=== PATIENT | female | born 1950 | race Caucasian/White ===

== ENCOUNTER 2018-06-14 11:16 | Inpatient (IN) ==
[2018-06-14] MEDS ORDERED: Tetanus/Diphtheria Toxoid Adult Vaccine Inj 0.5 ML Vial IM ONE (11:31)
--- NOTE | 2018-06-14 12:08 | ED ---
HPI General Chief Complaint: Fall Stated Complaint: fall Time Seen by Provider: 06/14/18 11:31 Source: patient and family Mode of arrival: ambulatory Limitations: no limitations History of Present Illness HPI Narrative: Patient is a 68-year-old female presenting to emergency department for evaluation of a syncopal episode. Patient states she was getting off the couch and fell and hit the floor. Patient sustained a laceration to her forehead. She does not remember falling. She states that she did not feel dizzy or short of breath prior to the fall. She denied any chest pain. Patient has a history of COPD, she is oxygen dependent. Family member gave patient Graahm prior to arrival in the emergency department. This is patient's second fall in 6 weeks. Patient denies any other injuries sustained from the fall. Family member was in the room, he states he did not witness the fall but he turned around when he heard her fall. He states that she did not lose consciousness. MD complaint: fall Onset (ago): hour(s) Fall from: standing Fall witnessed: no Place fall occurred: home Loss of consciousness: unsure Length of LOC: second(s) Prolonged down time: no Symptoms prior to fall: none Context: history of frequent falls Location of injury: head Severity: mild Severity scale (1-10): 3 Quality: aching Associated symptoms (after fall): headache Related Data Home Medications Medication Instructions Recorded Confirmed furosemide [Lasix] 20 mg PO DAILY 06/14/18 06/14/18 prednisone 20 mg PO DAILY 06/14/18 06/14/18 Allergies Allergy/AdvReac Type Severity Reaction Status Date / Time latex Allergy Severe RASH/ITCH Verified 06/14/18 12:00 Review of Systems Except as stated in HPI: all other systems reviewed are negative PMFSH History History Provided By: Patient and Family Member Medical History Medical History COPD (chronic obstructive pulmonary disease) (Acute) Surgical History Surgical History History of lung surgery (Acute) Family History Family History Other Arthritis Social History Social History Second Hand Smoke Exposure: No Smoking Status: Former smoker Tobacco Type: Cigarettes How Often Do You Have a Drink Containing Alcohol: Never Recent Travel in [facility] within the Last 8 Weeks: No Recent Out of Country Travel within the Last 8 Weeks: No Exam Narrative Exam Narrative: GENERAL: Well-developed, well-nourished, alert female. Presenting in no acute distress. Appears older than stated age. SKIN: Focused skin assessment warm/dry. 6 cm superficial laceration to the left forehead. HEAD: Normocephalic. EYES: Pupils equal and round. No scleral icterus. No injection or drainage. ENT: No nasal bleeding or discharge. Mucous membranes pink and moist. NECK: Trachea midline. No JVD. CARDIOVASCULAR: Tachycardic. No murmur appreciated. RESPIRATORY: Tachypnea, diminished throughout with prolonged expiratory wheezes GASTROINTESTINAL: Abdomen soft, non-tender, nondistended. Hepatic and splenic margins not palpable. MUSCULOSKELETAL: No obvious deformities. No clubbing. No cyanosis. No edema. NEUROLOGICAL: Awake and alert. No obvious cranial nerve deficits. Motor grossly within normal limits. Normal speech. PSYCHIATRIC: Appropriate mood and affect; insight and judgment normal. Procedures Laceration Laceration 1: Site: face (Forehead) Side (If applicable): left Size (cm): 6 Description: linear Depth: simple, single layer Anesthetic used: with epi (1) Anesthesia technique:: local infiltration Amount (mL): 5 Pre-repair:: wound explored and irrigated extensively Skin layer closed with: other (Prolene) Size (cm): 5-0 Number of sutures:: 6 Technique:: simple, interrupted Subcutaneous layer closed with: vicryl Size: 5-0 Number of sutures: 2 Technique:: simple, interrupted Course Initial Documented Vital Signs Temperature 98.0 F 06/14/18 11:19 Pulse Rate 106 H 06/14/18 11:19 Respiratory Rate 24 06/14/18 11:19 Blood Pressure 126/83 06/14/18 11:19 Pulse Oximetry 95 06/14/18 11:19 Last Documented Vital Signs Temperature 97.8 F 06/14/18 12:20 Pulse Rate 92 H 06/14/18 14:33 Respiratory Rate 16 06/14/18 14:33 Blood Pressure 125/58 L 06/14/18 14:33 Pulse Oximetry 100 06/14/18 14:33 Medical Decision Making TA Attestation TA supervised visit: Yes Attestation: I was present with the advanced practitioner during the management of this patient. I discussed the case with the advanced practitioner and agree with the findings and plan as documented in their note except as noted below. 68yF presenting with fall and head injury. The patient reported no prodromal symptoms. This is the 2nd similar episode in the past month and a half. No acute distress Laceration to upper forehead near hairline, repaired No raccoon eyes or Tavarez's sign RRR Expiratory wheeze bilaterally Abdomen soft and non-tender throughout No extremity trauma A/P: 68yF presenting with syncopal episode EKG and monitor CTH and C spine Labs Patient will probably need to stay for further workup for syncope MDM Narrative Medical decision making narrative: Patient is a 68-year-old female presented to emerge from for evaluation a fall where she sustained a laceration to her forehead. Patient denies being symptomatic prior to falling. Family member was there, there was no prolonged downtime, they denied loss of consciousness. Patient has no focal deficits on exam. She is oxygen dependent. Labs and imaging ordered and pending. CT of the brain and cervical spine show no acute abnormalities. Please see procedure report for laceration repair. Labs reviewed, white blood cell count is 18.1, leukocytosis is likely from patient being on prednisone. EKG reviewed by my attending physician. Pt will be admitted for syncopal episode. Pt is sleeping comfortably. [facility] paged for admit. 1630 -patient's spouse presented to emergency department, patient was still sleeping due to the Ativan. Patient's spouse was aggravated and irritated that she was not being discharged. Explained to spouse that our plan was to place her under observation. He states that that was not his plan prior to bringing her here. He then states that patient had a bad experience last time she was admitted and almost "lost her arm". Patient's apologized for being so antagonistic. He then left the emergency department. Patient was admitted under observation to Dr. Bautista. Admit orders placed. Differential Diagnosis Differential Diagnosis: Contusion versus laceration versus concussion versus hemorrhage versus metabolic abnormality versus arrhythmia versus other Medical Records Medical records reviewed: Yes I reviewed the patient's medical records. Lab Data Lab results reviewed: Yes I reviewed the patient's lab results. Result diagrams: 06/14/18 12:14 06/14/18 12:14 Lab Results 06/14/18 06/14/1818 Range/Units 12:14 12:14 12:14 WBC 18.1 H (4.0-11.0) th/mm3 RBC 3.88 L (4.00-5.30) mil/mm3 Hgb 11.2 L (11.6-15.3) gm/dL Hct 35.2 (35.0-46.0) % MCV 90.8 (80.0-100.0) fL MCH 29.0 (27.0-34.0) pg MCHC 31.9 L (32.0-36.0) % RDW 14.7 (11.6-17.2) % Plt Count 324 (150-450) th/mm3 MPV 6.6 L (7.0-11.0) fL Neut % (Auto) 91.1 H (16.0-70.0) % Lymph % (Auto) 3.3 L (9.0-44.0) % [place] % (Auto) 5.2 (0.0-8.0) % Eos % (Auto) 0.3 (0.0-4.0) % Baso % (Auto) 0.1 (0.0-2.0) % Neut # (Auto) 16.4 H (1.8-7.7) th/mm3 Lymph # (Auto) 0.6 L (1.0-4.8) th/mm3 [place] # (Auto) 0.9 (0.0-0.9) th/mm3 Eos # (Auto) 0.1 (0.0-0.4) th/mm3 Baso # (Auto) 0.0 (0.0-0.2) th/mm3 WBC Differential . Differential Comment Auto diff final PT 10.1 (9.8-11.6) sec INR 1.0 Ratio APTT 22.6 L (24.3-30.1) sec Sodium 134 L (136-145) meq/L Potassium 3.9 (3.5-5.1) meq/L Chloride 93 L (98-107) meq/L Carbon Dioxide 36.8 H (21.0-32.0) meq/L Anion Gap 4 L (5-15) meq/L BUN 8 (7-18) mg/dL Creatinine 1.21 H (0.50-1.00) mg/dL Estimated GFR 44 L (>89) mL/min POC Glucose (68-110) mg/dl Random Glucose 97 (74-106) mg/dL Calcium 8.4 L (8.5-10.1) mg/dL Magnesium 1.9 (1.5-2.5) mg/dL Total Bilirubin 0.6 (0.2-1.0) mg/dL AST 27 (15-37) U/L ALT 28 (10-53) U/L Alkaline Phosphatase 57 (45-117) U/L Troponin I Less than 0.02 L (0.02-0.05) ng/mL Total Protein 6.2 L (6.4-8.2) g/dL Albumin 3.3 L (3.4-5.0) g/dL 06/14/18 Range/Units 12:20 WBC (4.0-11.0) th/mm3 RBC (4.00-5.30) mil/mm3 Hgb (11.6-15.3) gm/dL Hct (35.0-46.0) % MCV (80.0-100.0) fL MCH (27.0-34.0) pg MCHC (32.0-36.0) % RDW (11.6-17.2) % Plt Count (150-450) th/mm3 MPV (7.0-11.0) fL Neut % (Auto) (16.0-70.0) % Lymph % (Auto) (9.0-44.0) % [place] % (Auto) (0.0-8.0) % Eos % (Auto) (0.0-4.0) % Baso % (Auto) (0.0-2.0) % Neut # (Auto) (1.8-7.7) th/mm3 Lymph # (Auto) (1.0-4.8) th/mm3 [place] # (Auto) (0.0-0.9) th/mm3 Eos # (Auto) (0.0-0.4) th/mm3 Baso # (Auto) (0.0-0.2) th/mm3 WBC Differential Differential Comment PT (9.8-11.6) sec INR Ratio APTT (24.3-30.1) sec Sodium (136-145) meq/L Potassium (3.5-5.1) meq/L Chloride (98-107) meq/L Carbon Dioxide (21.0-32.0) meq/L Anion Gap (5-15) meq/L BUN (7-18) mg/dL Creatinine (0.50-1.00) mg/dL Estimated GFR (>89) mL/min POC Glucose 111 H (68-110) mg/dl Random Glucose (74-106) mg/dL Calcium (8.5-10.1) mg/dL Magnesium (1.5-2.5) mg/dL Total Bilirubin (0.2-1.0) mg/dL AST (15-37) U/L ALT (10-53) U/L Alkaline Phosphatase (45-117) U/L Troponin I (0.02-0.05) ng/mL Total Protein (6.4-8.2) g/dL Albumin (3.4-5.0) g/dL Imaging Data Radiologist's impression: Cervical Spine CT 06/14/18 11:31 CONCLUSION: 1. Multilevel degenerative changes. 2. No fracture or subluxation Head CT 06/14/18 11:31 CONCLUSION: 1. Nonspecific white matter changes. 2. No acute intracranial abnormality. . Reviewed radiology reports. Discharge Plan Discharge Disposition Patient Disposition: 30 Still Patient Discharge Condition Condition: Stable Discharge Details Diagnosis: Syncope, Head injury, Laceration, COPD (chronic obstructive pulmonary disease) , Falls Physicians Team ED Provider: Astrid Roa ED Midlevel Provider: Alice Pettit Primary Care Provider: UNKNOWN, Attending Provider: Negrito Bautista Status ED Status: Admitted Observation Patient
[2018-06-14] MEDS ORDERED: Lidocaine 1%/Epinephrine 1:100,000 Inj 20 ML Vial INFILTRATN ONE (12:35)
[2018-06-14 12:44] LABS: Baso % (Auto) 0.1 % (0.0-2.0); Eos # (Auto) 0.1 th/mm3 (0.0-0.4); Eos % (Auto) 0.3 % (0.0-4.0); Hematocrit 35.2 % (35.0-46.0); Hemoglobin 11.2 gm/dL (11.6-15.3); Lymph # (Auto) 0.6 th/mm3 (1.0-4.8); Lymph % (Auto) 3.3 % (9.0-44.0); Mean Corpuscular HGB Conc 31.9 % (32.0-36.0); Mean Corpuscular Volume 90.8 fL (80.0-100.0); Mean Platelet Volume 6.6 fL (7.0-11.0); Mono # (Auto) 0.9 th/mm3 (0.0-0.9); Mono % (Auto) 5.2 % (0.0-8.0); Neut # (Auto) 16.4 th/mm3 (1.8-7.7); Neut % (Auto) 91.1 % (16.0-70.0); Platelet Count 324 th/mm3 (150-450); Red Blood Count 3.88 mil/mm3 (4.00-5.30); Red Cell Distribution Width 14.7 % (11.6-17.2); White Blood Count 18.1 th/mm3 (4.0-11.0)
[2018-06-14 12:53] LABS: Activated Partial Thrombo Time 22.6 sec (24.3-30.1); Prothrombin Time 10.1 sec (9.8-11.6)
--- NOTE | 2018-06-14 13:12 | CT ---
EXAM DATE: 06/14/2018 1:01 PM EDT AGE/SEX: 68 years / Female INDICATIONS: Trauma, fall. CLINICAL DATA: This is the patient's initial encounter. Patient reports that signs and symptoms have been present for 1 day and indicates a pain score of 4/10. MEDICAL/SURGICAL HISTORY: Chronic obstructive pulmonary disease. None. RADIATION DOSE: 56.37 CTDI (mGy) COMPARISON: No prior exams available for comparison. TECHNIQUE: CT of the head without contrast. Using automated exposure control and adjustment of the mA and/or kV according to patient size, radiation dose was kept as low as reasonably achievable to ob tain optimal diagnostic quality images. DICOM format image data is available electronically for revi ew and comparison. FINDINGS: Cerebrum: The ventricles are normal for age. Areas of low-attenuation throughout white matter. No e vidence of midline shift, mass lesion, hemorrhage or acute infarction. No extraaxial fluid collectio ns are seen. Posterior Fossa: The cerebellum and brainstem are intact. The 4th ventricle is midline. The cerebe llopontine angle is unremarkable. Extracranial: The visualized portion of the orbits is intact. Skull: The calvaria is intact. No evidence of skull fracture. CONCLUSION: 1. Nonspecific white matter changes. 2. No acute intracranial abnormality. . Electronically signed by: Mikal Blackwell MD 06/14/2018 1:10 PM EDT
[2018-06-14 13:19] LABS: Alanine Aminotransferase 28 U/L (10-53); Albumin 3.3 g/dL (3.4-5.0); Anion Gap 4 meq/L (5-15); Aspartate Aminotransferase 27 U/L (15-37); Blood Urea Nitrogen 8 mg/dL (7-18); Calcium 8.4 mg/dL (8.5-10.1); Carbon Dioxide 36.8 meq/L (21.0-32.0); Chloride 93 meq/L (98-107); Glomerular Filtration Rate 44 mL/min (>89); Glucose,Random 97 mg/dL (74-106); Magnesium 1.9 mg/dL (1.5-2.5); Potassium 3.9 meq/L (3.5-5.1); Sodium 134 meq/L (136-145)
--- NOTE | 2018-06-14 13:21 | CT ---
EXAM DATE: 06/14/2018 1:14 PM EDT AGE/SEX: 68 years / Female INDICATIONS: Trauma, fall. CLINICAL DATA: This is the patient's initial encounter. Patient reports that signs and symptoms have been present for 1 day and indicates a pain score of 5/10. MEDICAL/SURGICAL HISTORY: Chronic obstructive pulmonary disease. None. RADIATION DOSE: 21.43 CTDI (mGy) COMPARISON: No prior exams available for comparison. TECHNIQUE: Contiguous axial images were obtained using helical multirow detector technique. The vol umetric data was post-processed with multiplanar reconstruction in oblique axial, sagittal, and coron al planes. Using automated exposure control and adjustment of the mA and/or kV according to patient s ize, radiation dose was kept as low as reasonably achievable to obtain optimal diagnostic quality anupama ges. DICOM format image data is available electronically for review and comparison. FINDINGS: Vertebrae: Normal vertebral body height. Alignment: Normal. No subluxation. C2-3: The bony spinal canal is normal in size. No evidence of disc bulge or herniation. The neural foramina are bilaterally patent. C3-4: The bony spinal canal is normal in size. No evidence of disc bulge or herniation. The neural foramina are bilaterally patent. C4-5: Posterior disc osteophyte complex and mild neural foraminal narrowing. No canal stenosis. C5-6: Posterior disc osteophyte complex and mild neural foraminal narrowing. No canal stenosis. C6-7: Posterior disc osteophyte complex and mild neural foraminal narrowing. No canal stenosis. C7-T1: The bony spinal canal is normal in size. No evidence of disc bulge or herniation. The neura l foramina are bilaterally patent. CONCLUSION: 1. Multilevel degenerative changes. 2. No fracture or subluxation Electronically signed by: Mikal Blackwell MD 06/14/2018 1:20 PM EDT
[2018-06-14 13:23] LABS: Alkaline Phosphatase 57 U/L (45-117); Total Protein 6.2 g/dL (6.4-8.2)
--- NOTE | 2018-06-14 16:56 | P.HPIM ---
History of Present Illness Service: Mrs. Lara is a 68 year old she is here secondary to having a syncopal episode at home. This episode occurred after she got off the couch, she fell right in front of the couch. She hit her head during this episode. CT shows no bleeding. 6 cm laceration was present and was repaired in the ER. Presently patient is status post CT for which she received Ativan. She has lethargy and cannot provide good history. Primary Care Physician: UNKNOWN - Diagnosis (1) Syncope (2) Laceration (3) COPD (chronic obstructive pulmonary disease) Review of Systems Constitutional: Denies fever(s), Denies night sweats, Denies weakness Eyes: Denies blind spots, Denies blurry vision, Denies change in vision, Denies double vision Ears, Nose, Mouth, and Throat: Denies abnormal hearing, Denies bleeding gums, Denies change in voice Cardiovascular: Denies chest pain, Denies chest pain at rest, Denies chest pain with activity Respiratory: Denies change in phlegm color, Denies chest congestion, Denies cough, Denies coughing up blood Gastrointestinal: Denies abdominal pain, Denies black, tarry stools, Denies bloating Musculoskeletal: Denies abnormal walking, Denies back pain, Denies body aches Skin/Breast: Denies rash, Denies skin pain, Denies skin ulcer Neurologic: Denies abnormal hearing, Denies abnormal movements, Denies abnormal speech Psychiatric: Denies abnormal sleep pattern, Denies anxiety, Denies behavioral changes PMF - History History Provided By: Patient, Family Member - Medical History Medical History: Medical History (Last Reviewed 06/14/18 @ 14:11 by Astrid Roa DO) COPD (chronic obstructive pulmonary disease) - Surgical History Surgical History: Surgical History (Last Reviewed 06/14/18 @ 14:11 by Astrid Roa DO) History of lung surgery - Family History Family History: Family History (Last Updated 06/14/18 @ 16:59 by Negriot Bautista MD) Other Arthritis - Tobacco History Second Hand Smoke Exposure: No Tobacco Use In Past 30 Days: No (quit 2007) Smoking Status: Former smoker Tobacco Type: Cigarettes - Alcohol History How Often Do You Have a Drink Containing Alcohol: Never - Travel History Recent Travel in the [place] Within the Last 8 Weeks: No Recent Travel Out of the Country Within the Last 8 Weeks: No - Immunization History Tetanus Immunization: >5 Years Hx Influenza Vaccine This Season: No Medications and Allergies Active Medications: Active Medications Sodium Chloride (Ns Inj) 1,000 mls @ 75 mls/hr IV.CONT .[id number] JAMAL Allergies Allergy/AdvReac Type Severity Reaction Status Date / Time latex Allergy Severe RASH/ITCH Verified 06/14/18 12:00 Home Medications Medication Instructions Recorded Confirmed Type furosemide [Lasix] 20 mg PO DAILY 06/14/18 06/14/18 History prednisone 20 mg PO DAILY 06/14/18 06/14/18 History Exam Vital signs: Vital Signs 06/14/18 11:19 06/14/18 11:48 06/14/18 12:20 Temperature 98.0 F 97.8 F Pulse Rate 106 H 94 H 89 Respiratory Rate 24 20 Blood Pressure 126/83 118/66 Pulse Oximetry 95 98 98 06/14/18 14:33 Temperature Pulse Rate 92 H Respiratory Rate 16 Blood Pressure 125/58 L Pulse Oximetry 100 Intake & Output 06/13/18 06/14/18 06/14/18 18:59 06:59 18:59 Weight 73.482 kg Narrative: GENERAL: NAD, A&Ox1, lethargic secondary to receiving Ativan HEAD: Normocephalic. NECK: Supple, trachea midline. No lymphadenopathy. EYES: No scleral icterus. No injection or drainage. CARDIOVASCULAR: Regular rate and rhythm without murmurs, gallops, or rubs. RESPIRATORY: Breath sounds equal bilaterally. No accessory muscle use. GASTROINTESTINAL: Abdomen soft, non-tender, nondistended. MUSCULOSKELETAL: No cyanosis, or edema. SKIN: Warm and dry. 6 cm forehead laceration, status post repair. NEURO: No focal neurological deficits. Results - Labs CBC & Chem 7: 06/14/18 12:14 06/14/18 12:14 Labs: Short CBC 06/14/18 Range/Units 12:14 WBC 18.1 H (4.0-11.0) th/mm3 Hgb 11.2 L (11.6-15.3) gm/dL Hct 35.2 (35.0-46.0) % Plt Count 324 (150-450) th/mm3 BMP 06/14/18 12:14 Sodium 134 L Potassium 3.9 Chloride 93 L Carbon Dioxide 36.8 H BUN 8 Creatinine 1.21 H Calcium 8.4 L Cardiac Enzymes 06/14/18 Range/Units 12:14 Troponin I Less than 0.02 L (0.02-0.05) ng/mL Liver Function 06/14/18 Range/Units 12:14 Total Bilirubin 0.6 (0.2-1.0) mg/dL AST 27 (15-37) U/L ALT 28 (10-53) U/L Alkaline Phosphatase 57 (45-117) U/L Albumin 3.3 L (3.4-5.0) g/dL - Imaging Impressions Cervical Spine CT 06/14/18 11:31 CONCLUSION: 1. Multilevel degenerative changes. 2. No fracture or subluxation Head CT 06/14/18 11:31 CONCLUSION: 1. Nonspecific white matter changes. 2. No acute intracranial abnormality. . Caprini VTE Risk Assessment Caprini VTE Risk Assessment: No/Low Risk (score <= 1) Caprini Risk Assessment Model: Point Value = 1 Point Value = 2 Point Value = 3 Point Value = 5 Age 41-60 Minor surgery BMI > 25 kg/m2 Swollen legs Varicose veins or History of unexplained or recurrent spontaneous Oral contraceptives or hormone replacement Sepsis (< 1 month) Serious lung disease, including pneumonia (< 1 month) Abnormal pulmonary function Acute myocardial infarction Congestive heart failure (< 1 month) History of inflammatory bowel disease Medical patient at bed rest Age 61-74 Arthroscopic surgery Major open surgery (> 45 min) Laparoscopic surgery (> 45 min) Malignancy Confined to bed (> 72 hours) Immobilizing plaster cast Central venous access Age >= 75 History of VTE Family history of VTE Factor V Leiden Prothrombin [id number] Lupus anticoagulant Anticardiolipin antibodies Elevated serum homocysteine Heparin-induced thrombocytopenia Other congenital or acquired thrombophilia Stroke (< 1 month) Elective arthroplasty Hip, pelvis, or leg fracture Acute spinal cord injury (< 1 month) Prophylaxis Regimen: Total Risk Factor Score Risk Level Prophylaxis Regimen 0-1 Low Early ambulation 2 Moderate Order ONE of the following: *Sequential Compression Device (SCD) *Heparin 5000 units SQ BID 3-4 Higher Order ONE of the following medications: *Heparin 5000 units SQ TID *Enoxaparin/Lovenox 40 mg SQ daily (WT < 150 kg, CrCl > 30 mL/min) *Enoxaparin/Lovenox 30 mg SQ daily (WT < 150 kg, CrCl > 10-29 mL/min) *Enoxaparin/Lovenox 30 mg SQ BID (WT < 150 kg, CrCl > 30 mL/min) AND/OR *Sequential Compression Device (SCD) 5 or more Highest Order ONE of the following medications: *Heparin 5000 units SQ TID (Preferred with Epidurals) *Enoxaparin/Lovenox 40 mg SQ daily (WT < 150 kg, CrCl > 30 mL/min) *Enoxaparin/Lovenox 30 mg SQ daily (WT < 150 kg, CrCl > 10-29 mL/min) *Enoxaparin/Lovenox 30 mg SQ BID (WT < 150 kg, CrCl > 30 mL/min) AND *Sequential Compression Device (SCD) Assessment and Plan - Assessment (1) Syncope Code(s): R55 - Syncope and collapse Status: Acute (2) Laceration Status: Acute (3) COPD (chronic obstructive pulmonary disease) Code(s): J44.9 - Chronic obstructive pulmonary disease, unspecified Status: Acute - Plan 68-year-old female admitted secondary to syncopal episode at home. Syncope Carotid ultrasound Echocardiogram Monitor on telemetry Orthostatic blood pressure check Physical therapy evaluation in a.m. Head laceration Monitor clinically No bleed on CT COPD No exacerbation Continue baseline treatments DVT prophylaxis SCDs (1) Syncope Qualifiers: Syncope type: unspecified Qualified Code(s): R55 - Syncope and collapse (3) COPD (chronic obstructive pulmonary disease) Qualifiers: COPD type: unspecified COPD Qualified Code(s): J44.9 - Chronic obstructive pulmonary disease, unspecified
[2018-06-14] MEDS: Sod Chloride 0.9% Inj 1,000 ML IV.CONT SCH (17:02)
[2018-06-15 07:50] LABS: Baso % (Auto) 0.2 % (0.0-2.0); Eos % (Auto) 0.1 % (0.0-4.0); Hematocrit 35.2 % (35.0-46.0); Hemoglobin 11.1 gm/dL (11.6-15.3); Lymph # (Auto) 1.4 th/mm3 (1.0-4.8); Lymph % (Auto) 10.2 % (9.0-44.0); Mean Corpuscular HGB Conc 31.4 % (32.0-36.0); Mean Corpuscular Hemoglobin 28.9 pg (27.0-34.0); Mean Platelet Volume 7.1 fL (7.0-11.0); Mono # (Auto) 1.3 th/mm3 (0.0-0.9); Mono % (Auto) 9.1 % (0.0-8.0); Neut # (Auto) 11.3 th/mm3 (1.8-7.7); Neut % (Auto) 80.4 % (16.0-70.0); Platelet Count 346 th/mm3 (150-450); Red Blood Count 3.83 mil/mm3 (4.00-5.30); Red Cell Distribution Width 14.6 % (11.6-17.2); White Blood Count 14.1 th/mm3 (4.0-11.0)
[2018-06-15 08:29] LABS: Albumin 2.9 g/dL (3.4-5.0); Anion Gap 5 meq/L (5-15); Aspartate Aminotransferase 24 U/L (15-37); Blood Urea Nitrogen 6 mg/dL (7-18); Calcium 8.7 mg/dL (8.5-10.1); Carbon Dioxide 36.6 meq/L (21.0-32.0); Chloride 97 meq/L (98-107); Glomerular Filtration Rate 75 mL/min (>89); Glucose,Random 85 mg/dL (74-106); Magnesium 2.1 mg/dL (1.5-2.5); Sodium 139 meq/L (136-145)
[2018-06-15 08:30] LABS: Alanine Aminotransferase 26 U/L (10-53); Phosphorus 4.1 mg/dL (2.5-4.9)
[2018-06-15 08:32] LABS: Alkaline Phosphatase 55 U/L (45-117); Total Protein 6.1 g/dL (6.4-8.2)
[2018-06-15] MEDS ORDERED: predniSONE 20 MG Tablet PO SCH (09:30)
[2018-06-15] MEDS ORDERED: MethylPREDNISolone Sod Succinate Inj 125 MG/2 ML Vial IV.PUSH ONE (10:45)
[2018-06-15] MEDS: Furosemide 20 MG Tablet PO SCH (10:56)
--- NOTE | 2018-06-15 14:30 | ECHRPT ---
Indication: RECURRENT SYNCOPE CONCLUSIONS Normal left ventricular size. Wall thickness is normal. The left ventricular systolic function is low normal with an estimated ejection fraction in the rang e of 50- 55%. Mitral annular calcification is present. Aortic valve sclerosis is present. There is trace tricuspid valve regurgitation. The estimated pulmonary arterial pressure is 53 mmHg. BP: / HR: Rhythm: MEASUREMENTS (Male / Female) Normal Values Technical Quality: 2D ECHO LV Diastolic Diameter PLAX 4.4 cm 4.2 - 5.9 / 3.9 - 5.3 cm LV Systolic Diameter PLAX 3.5 cm IVS Diastolic Thickness 1.1 cm 0.6 - 1.0 / 0.6 - 0.9 cm LVPW Diastolic Thickness 0.7 cm 0.6 - 1.0 / 0.6 - 0.9 cm LV Relative Wall Thickness 0.4 RV Internal Dim ED PLAX 2.3 cm LA Systolic Diameter LX 3.7 cm 3.0 - 4.0 / 2.7 - 3.8 cm DOPPLER Mitral E Point Velocity 103.0 cm/s Mitral A Point Velocity 129.0 cm/s Mitral E to A Ratio 0.8 TR Peak Velocity 326.0 cm/s TR Peak Gradient 42.5 mmHg Right Atrial Pressure 10.0 mmHg Pulmonary Artery Systolic Pressu 52.5 mmHg Right Ventricular Systolic Press 52.5 mmHg FINDINGS LEFT VENTRICLE Normal left ventricular size. Wall thickness is normal. The left ventricular systolic function is low normal with an estimated ejection fraction in the rang e of 50- 55%. RIGHT VENTRICLE Normal right ventricular size and systolic function. LEFT ATRIUM The left atrial size is normal. RIGHT ATRIUM The right atrial size is normal. ATRIAL SEPTUM Normal atrial septal thickness without atrial level shunting by limited color doppler interrogation. AORTA The aortic root and proximal ascending aorta are normal in size on limited imaging. MITRAL VALVE Mitral annular calcification is present. AORTIC VALVE Aortic valve sclerosis is present. TRICUSPID VALVE There is trace tricuspid valve regurgitation. The estimated pulmonary arterial pressure is 53 mmHg. PULMONARY VALVE No pulmonary valve regurgitation or stenosis. VESSELS The inferior vena cava is normal in size. PERICARDIUM No pericardial effusion. Jose Vale MD, FACC, FSCAI (Electronically Signed) Final Date:15 June 2018 14:29
--- NOTE | 2018-06-15 15:58 | P.PNIM ---
Subjective Interval history: Patient had problems with hypoxia and respiratory distress this morning. She has COPD at baseline. COPD exacerbations present. He is hypoxic compared to her baseline and would not tolerate baseline treatment in her present status. In regards to her syncope. She has had no recurrence of syncope. Orthostatic blood pressure testing is positive. Echocardiogram shows no focal cause to explain her syncope. Carotid ultrasound is pending. No abnormality in rhythms on the telemetry. Physical Exam Vital signs: Vital Signs 06/14/18 17:30 06/14/18 18:34 06/14/18 20:00 Temperature 97.8 F 97.7 F Pulse Rate 85 92 H 89 Respiratory Rate 22 18 20 Blood Pressure 106/59 L 136/60 130/68 Pulse Oximetry 98 100 100 06/15/18 00:00 06/15/18 00:54 06/15/18 04:00 Temperature 97.5 F L 98 F Pulse Rate 92 H 97 H 90 Respiratory Rate 20 36 H 20 Blood Pressure 125/74 136/69 Pulse Oximetry 100 97 100 06/15/18 06:05 06/15/18 07:32 06/15/18 08:00 Temperature 97.9 F Pulse Rate 93 H 87 104 H Respiratory Rate 18 Blood Pressure 193/112 H Pulse Oximetry 98 06/15/18 09:34 06/15/18 11:01 06/15/18 12:00 Temperature 98.1 F Pulse Rate 92 H 95 H Respiratory Rate 22 16 Blood Pressure 114/59 L 134/63 Pulse Oximetry 94 L 100 06/15/18 15:35 Temperature Pulse Rate 92 H Respiratory Rate 16 Blood Pressure Pulse Oximetry Intake & Output 06/14/18 06/15/18 06/15/18 18:59 06:59 18:59 Intake Total 240 / 240 Balance 240 / 240 Weight 73.482 kg 73.482 kg 72.802 kg Intake: Oral 240 / 240 Other: Weight On Admission 73.482 kg Narrative: GENERAL: NAD, A&Ox3 HEAD: Normocephalic. NECK: Supple, trachea midline. No lymphadenopathy. EYES: No scleral icterus. No injection or drainage. CARDIOVASCULAR: Regular rate and rhythm without murmurs, gallops, or rubs. RESPIRATORY: Breath sounds equal bilaterally. No accessory muscle use. Bilateral wheezing GASTROINTESTINAL: Abdomen soft, non-tender, nondistended. MUSCULOSKELETAL: No cyanosis, or edema. SKIN: Warm and dry. NEURO: No focal neurological deficits. Results - Labs CBC & Chem 7: 06/15/18 06:54 06/15/18 06:54 Laboratory Results - last 24 hr 06/15/18 06/15/18 06:54 06:54 WBC 14.1 H RBC 3.83 L Hgb 11.1 L Hct 35.2 MCV 92.0 MCH 28.9 MCHC 31.4 L RDW 14.6 Plt Count 346 MPV 7.1 Neut % (Auto) 80.4 H Lymph % (Auto) 10.2 [place] % (Auto) 9.1 H Eos % (Auto) 0.1 Baso % (Auto) 0.2 Neut # (Auto) 11.3 H Lymph # (Auto) 1.4 [place] # (Auto) 1.3 H Eos # (Auto) 0.0 Baso # (Auto) 0.0 WBC Differential . Differential Comment Auto diff final Sodium 139 Potassium 4.0 Chloride 97 L Carbon Dioxide 36.6 H Anion Gap 5 BUN 6 L Creatinine 0.77 Estimated GFR 75 L Random Glucose 85 Calcium 8.7 Phosphorus 4.1 Magnesium 2.1 Total Bilirubin 0.4 AST 24 ALT 26 Alkaline Phosphatase 55 Total Protein 6.1 L Albumin 2.9 L Assessment and Plan - Assessment (1) Syncope Code(s): R55 - Syncope and collapse Status: Acute (2) Laceration Status: Acute (3) COPD (chronic obstructive pulmonary disease) Code(s): J44.9 - Chronic obstructive pulmonary disease, unspecified Status: Acute - Plan 68-year-old female admitted secondary to syncopal episode at home. COPD exacerbation Hypoxia Adjust oxygen as tolerated to maintain saturations Continue oxygen supplements as needed Schedule duo nebs When necessary albuterol Systemic steroids Follow for improvement in respiratory status Follow for improvement in exertional tolerance next Syncope Carotid ultrasound pending Echocardiogram negative Monitor on telemetry Orthostatic blood pressure check is positive Physical therapy continued Head laceration Monitor clinically No bleed on CT DVT prophylaxis SCDs (1) Syncope Qualifiers: Syncope type: unspecified Qualified Code(s): R55 - Syncope and collapse (3) COPD (chronic obstructive pulmonary disease) Qualifiers: COPD type: unspecified COPD Qualified Code(s): J44.9 - Chronic obstructive pulmonary disease, unspecified
--- NOTE | 2018-06-15 18:33 | US ---
EXAM DATE: 06/15/2018 6:09 PM EDT AGE/SEX: 68 years / Female INDICATIONS: Syncope. CLINICAL DATA: This is the patient's initial encounter. Patient reports that signs and symptoms have been present for 1 day and indicates a pain score of 0/10. MEDICAL/SURGICAL HISTORY: Chronic obstructive pulmonary disease. . Lung surgery. COMPARISON: No prior exams available for comparison. VELOCITY PARAMETERS: Uncooperative patient. CCA: Right 96.3 cm/sec, ECA: Right 103.2 cm/sec, FINDINGS: Right Carotid: Mild plaque seen of the bulb and proximal internal carotid artery.The waveforms are w ithin normal limits. Left Carotid: FINDINGS The waveforms are within normal limits. Other: None. CONCLUSION: Study was terminated at the patient's request. Mild plaque seen of the right carotid bifu rcation. No other meaningful findings were obtained. Electronically signed by: Toby Badillo MD 06/15/2018 6:31 PM EDT
[2018-06-15] MEDS: MethylPREDNISolone Sod Succinate Inj 40 MG/ML Vial IV.PUSH SCH (22:17)
--- NOTE | 2018-06-15 22:44 | ECG ---
Date Performed: 06/14/2018 Time Performed: 12:26:17 PTAGE: 68 years EKG: Sinus rhythm WITH SINUS ARRHYTHMIA WITH SHORT MT INTERVAL BORDERLINE ECG PREVIOUS TRACING : 03/06/2016 18.01 Since the previous tracing, no significant change noted DOCTOR: Won Hansen Interpretating Date/Time 06/15/2018 22:42:56
[2018-06-16 07:21] LABS: ABG Base Excess 14.2 mmol/L (-2-2); ABG PCO2 68 mmHg (38-42); ABG PO2 73 mmHg (61-120)
[2018-06-16] MEDS: Furosemide 20 MG Tablet PO SCH (08:00)
[2018-06-16] MEDS: MethylPREDNISolone Sod Succinate Inj 40 MG/ML Vial IV.PUSH SCH ×2 (08:03→21:58)
--- NOTE | 2018-06-16 11:36 | P.PNIM ---
Subjective Interval history: Episode of respiratory distress this morning. ABG obtained and showed hypoxia and hypercarbia. Oxygen adjusted and patient's respiratory status has improved. She is now resting comfortably when seen. Physical Exam Vital signs: Vital Signs 06/15/18 12:00 06/15/18 15:35 06/15/18 16:00 Temperature 98.1 F 98.3 F Pulse Rate 95 H 92 H 97 H Respiratory Rate 16 16 18 Blood Pressure 134/63 126/62 Pulse Oximetry 100 100 06/15/18 20:00 06/15/18 21:28 06/15/18 23:16 Temperature 97.2 F L 97.8 F Pulse Rate 91 H 80 97 H Respiratory Rate 19 16 16 Blood Pressure 134/63 127/77 Pulse Oximetry 100 100 06/16/18 02:51 06/16/18 03:56 06/16/18 04:00 Temperature 97.8 F Pulse Rate 91 H 88 85 Respiratory Rate 32 H 17 Blood Pressure 129/61 Pulse Oximetry 100 06/16/18 06:13 06/16/18 08:00 06/16/18 09:30 Temperature 97.9 F Pulse Rate 99 H 94 H 93 H Respiratory Rate 32 H 18 Blood Pressure 113/70 Pulse Oximetry 99 Intake & Output 06/15/18 06/16/18 06/16/18 18:59 06:59 18:59 Weight 72.802 kg Other: # Voids 1 Narrative: GENERAL: NAD, A&Ox3 HEAD: Normocephalic. NECK: Supple, trachea midline. No lymphadenopathy. EYES: No scleral icterus. No injection or drainage. CARDIOVASCULAR: Regular rate and rhythm without murmurs, gallops, or rubs. RESPIRATORY: Breath sounds equal bilaterally. No accessory muscle use. Bilateral wheezing GASTROINTESTINAL: Abdomen soft, non-tender, nondistended. MUSCULOSKELETAL: No cyanosis, or edema. SKIN: Warm and dry. NEURO: No focal neurological deficits. Results - Labs CBC & Chem 7: 06/15/18 06:54 06/15/18 06:54 Laboratory Results - last 24 hr 06/16/18 06/16/18 05:31 06:57 Puncture Site Right radial Patient Temperature 98.6 O2 Saturation 94 ABG pH 7.39 ABG pCO2 68 H* ABG pO2 73 ABG HCO3 40 H ABG O2 Content 14.8 ABG Base Excess 14.2 H ABG Methemoglobin 0.6 [place] Test Present Hemoglobin 11.2 L Carboxyhemoglobin 1.6 O2 Delivery Device Nasal cannula Liter Flow 6.00 Inspired O2 44 Critical Value Yes POC Glucose 117 H - Imaging Impressions Carotid Doppler Study 06/15/18 00:00 CONCLUSION: Study was terminated at the patient's request. Mild plaque seen of the right carotid bifurcation. No other meaningful findings were obtained. Assessment and Plan - Assessment (1) Syncope Code(s): R55 - Syncope and collapse Status: Acute (2) Laceration Status: Acute (3) COPD (chronic obstructive pulmonary disease) Code(s): J44.9 - Chronic obstructive pulmonary disease, unspecified Status: Acute - Plan 68-year-old female admitted secondary to syncopal episode at home. Subsequent development of COPD exacerbation with hypoxia and hypercarbia, which could have been related to the fall. Respiratory status not improved today. Continue treatments and monitor for improvement. Hypercarbia Monitor for mental status changes ABG for any mental status changes May need BiPAP Continue to monitor COPD exacerbation Hypoxia Adjust oxygen as tolerated to maintain saturations Continue oxygen supplements as needed Schedule duo nebs When necessary albuterol Systemic steroids Follow for improvement in respiratory status Follow for improvement in exertional tolerance next Syncope Carotid ultrasound pending Echocardiogram negative Monitor on telemetry Orthostatic blood pressure check is positive Physical therapy continued Head laceration Monitor clinically No bleed on CT DVT prophylaxis SCDs (1) Syncope Qualifiers: Syncope type: unspecified Qualified Code(s): R55 - Syncope and collapse (3) COPD (chronic obstructive pulmonary disease) Qualifiers: COPD type: unspecified COPD Qualified Code(s): J44.9 - Chronic obstructive pulmonary disease, unspecified
[2018-06-16] MEDS ORDERED: Etomidate Inj 20 MG/10 ML Ampul IV.PUSH ONE (15:36)
[2018-06-16] MEDS ORDERED: Etomidate Inj 40 MG/20 ML Vial IV.PUSH ONE (15:39)
[2018-06-16] MEDS ORDERED: Dextrose 50% in Water 50 ML Vial IV.PUSH PRN (15:43)
[2018-06-16] MEDS ORDERED: Magnesium Sulfate Inj 4 GM in Sodium Chlor 0.9% Inj 92 ML IV.SIG PRN (15:44)
[2018-06-16] MEDS ORDERED: Potassium Chlor 20 mEq Premix 20 MEQ/100 ML PIGGYBACK IV.SIG PRN ×2 (15:44)
[2018-06-16] MEDS ORDERED: Magnesium Sulfate Inj 2 GM in Sodium Chlor 0.9% Inj 96 ML IV.SIG PRN (15:44)
[2018-06-16] MEDS ORDERED: Potassium Phosphate Inj 30 MMOL in Sodium Chlor 0.9% Inj 250 ML IV.SIG PRN (15:44)
[2018-06-16] MEDS ORDERED: Sodium Phosphate Inj 30 MMOL in Sodium Chlor 0.9% Inj 250 ML IV.SIG PRN (15:44)
[2018-06-16] MEDS ORDERED: Potassium Chlor 40 mEq Premix 40 MEQ/100 ML PIGGYBACK IV.SIG PRN ×2 (15:44)
[2018-06-16] MEDS ORDERED: Magnesium Oxide 400 MG Tablet PO PRN (15:44)
[2018-06-16] MEDS ORDERED: Potassium Phosphate 500 MG Soluble Tablet PO PRN ×2 (15:44)
[2018-06-16] MEDS ORDERED: Potassium Chloride 25 MEQ Effervescent Tablet PO PRN (15:44)
[2018-06-16] MEDS ORDERED: Propofol Inj 500 MG/50 ML Vial ONE (16:05)
--- NOTE | 2018-06-16 16:23 | P.PCN ---
Date of procedure: 06/16/18 Pre-op diagnosis: Acute respiratory failure Post-op diagnosis: same Procedure: DATE: 06/16/2018 PROCEDURE: Orotracheal intubation INDICATION: Acute respiratory failure DETAILS OF PROCEDURE The patient was placed in optimal position and preoxygenated with 100% FiO2 via bag valve mask. At the start oxygen saturation was 94%. The patient was administered 20 mg etomidate IV and 50 milligrams rocuronium IV. I entered the oropharynx with a size 4 laryngoscope blade and obtained a grade 2 view of the airway. On single attempt a size 8.0 cuffed endotracheal tube was passed through the vocal cords. Correct tube location was confirmed with end tidal CO2 detector and by auscultating over bilateral lung chapman. The endotracheal tube was secured with adhesive tape at a depth of 23 cm at the lips. The patient was connected to the ventilator. The patient tolerated the procedure well without any apparent complications. Oxygen saturations transiently dropped about 60% for about 10 seconds but increase to 95% afterwards quickly. STAT chest x-ray pending at time of dictation.
--- NOTE | 2018-06-16 16:25 | P.PCN ---
Date of procedure: 06/16/18 Pre-op diagnosis: Acute respiratory failure/no IV access Post-op diagnosis: same Procedure: DATE: 06/16/2018 CENTRAL LINE PLACEMENT: Right internal jugular vein. Ultrasound-guided INDICATION: Central venous access CONSENT Informed consent for procedure was not obtaining considered emergent due to no IV access for intubation. DESCRIPTION OF THE PROCEDURE The patient was placed in supine position. The skin was cleansed with Chloraprep. Additional barrier precautions included large sterile drape, sterile gloves, sterile gown, face mask, and hat. 1 % lidocaine was used for local anesthesia. Under direct ultrasound guidance and on initial attempt, the vein was accessed with an introducer needle. The guide wire was advanced and the tract was dilated. Using Seldinger technique a 7 [place] 20 cm antimicrobial coated triple-lumen catheter was advanced to a depth of 16 centimeters. The guide wire was removed. All ports had good return of dark venous blood and flushed easily with saline. The central line was secured with 2.0 silk. A sterile dressing with antibiotic disc was applied. Site was sutured into place due to poor IV access/diaphoretic patient and unable to place StatLock ESTIMATED BLOOD LOSS: Minimal COMPLICATIONS: No apparent complications. STAT chest x-ray pending at time of dictation
--- NOTE | 2018-06-16 16:28 | P.CONCC ---
History of Present Illness Service: Critical care medicine Consult date: 06/16/18 Requesting Physician: Marciano Bautista Reason for Consult: Acute respiratory failure Primary Care Provider: UNKNOWN Family Provider: Unknown Chief Complaint: CO2 retention, acute respiratory failure History of Present Illness: This is a 68-year-old female. Date of admission 06/14/2018. Date of consult 06/16/2018. Past medical history includes COPD, cataracts and ovarian cancer. Patient presented to [facility] on 06/14/18 status post syncopal event at home status post fall. Patient had a laceration 6 cm left forehead which is been sutured. CT brain revealed no acute findings. Patient had carotid ultrasound which revealed no pertinent findings. 2-dimensional echocardiogram revealed EF around 50%. PAP 53 mmHg. Yesterday, patient became more short of breath COPD exacerbation. Patient was scheduled on duo nebs and received methylprednisolone succinate. She is retaining CO2 this morning/afternoon refused BiPAP. Her respiratory rates in the 40s. She is transferred to ICU where decision was made to intubate she is currently a full code. Review of Systems unobtainable due to endotracheal tube PMFSH - History History Provided By: Patient - Medical History Medical History: Medical History (Last Updated 06/16/18 @ 16:31 by Reece Louie MD) COPD (chronic obstructive pulmonary disease) Chronic steroid use History of ovarian cancer Left cataract - Surgical History Surgical History: Surgical History (Last Updated 06/16/18 @ 16:32 by Reece Louie MD) History of lumpectomy of left breast History of lung surgery History of tonsillectomy History of total abdominal hysterectomy - Family History Family History: Family History (Last Updated 06/16/18 @ 16:33 by Reece Louie MD) Other Arthritis Family history of uterine cancer Maternal family history of emphysema - Tobacco History Second Hand Smoke Exposure: No Tobacco Use In Past 30 Days: No Smoking Status: Former smoker (Quit 2010.) Tobacco Type: Cigarettes Number of Pack Years (if former smoker): 40 - Alcohol History How Often Do You Have a Drink Containing Alcohol: Never - Substance Use History Substance History: No History of Abuse - Travel History Recent Travel in the [place] Within the Last 8 Weeks: No Recent Travel Out of the Country Within the Last 8 Weeks: No - Immunization History Tetanus Immunization: >5 Years Hx Influenza Vaccine This Season: No Medications and Allergies Active Medications: Active Medications Acetaminophen (Tylenol Liq) 650 mg NG/OG Q6H PRN PRN Reason: FEVER Al Hydroxide/Mg Hydroxide (Milk Of Magnesia Liq) 30 ml PO Q12H PRN PRN Reason: Mild Constipation Albuterol (Albuterol Neb (Prn)) 2.5 mg NEB Q2HR NEB PRN PRN Reason: Wheeze or Dyspnea Last Admin: 06/16/18 02:49 Dose: 2.5 mg Albuterol (Duoneb Neb (Luis)) 1 ampul NEB Q4HR NEB [facility] Artificial Tears (Genteal Severe Dry Eye Relief 0.3% Opth Gel) 1 drops EACH EYE BID LUIS Budesonide (Pulmocort Respule Neb) 0.5 mg NEB Q12HR [facility]B [facility] Chlorhexidine Gluconate (Peridex 0.12% Oral Kit) 15 ml OROPHARYNG BID@0800, 2000 LUIS Chlorhexidine Gluconate (Peridex 0.12% Oral Kit) 15 ml OROPHARYNG BID@0800, 2000 LUIS Clonidine HCl (Catapres) 0.1 mg PO Q6H PRN PRN Reason: SYS BP GREATER THAN 160 MMHG Dextrose (D50w Vial) 50 ml IV.PUSH UNSCH PRN PRN Reason: PER HYPOGLYCEMIA PROTOCOL Glucagon (Glucagon Inj) 1 mg OTHER PRN PRN PRN Reason: for Hypoglycemia Protocol Heparin Sodium (Porcine) (Heparin Inj) 5,000 units SQ Q12HR LUIS Sodium Chloride (Ns Inj) 1,000 mls @ 75 mls/hr IV.CONT .[id number] [facility] Last Infusion: 06/15/18 01:04 Dose: 0 mls/hr Fentanyl (Fentanyl 10 Mcg/Ml Premix Drip) 2,500 mcg in 250 mls @ 5 mls/hr IV.SIG TITRATE PRN; Protocol PRN Reason: Per Protocol Propofol (Diprivan 1000 Mg/100 Ml Inj) 1,000 mg in 100 mls @ 2.184 mls/hr IV.CONT TITRATE PRN; Protocol PRN Reason: Per Protocol Magnesium Sulfate Inj 2 gm/ (Sodium Chloride) 100 mls @ 50 mls/hr IV.SIG UNSCH PRN PRN Reason: For Magnesium 1.2 - 1.6 mg/dL Potassium Chloride (Kcl 40 Meq Premix Inj) 40 meq in 100 mls @ 25 mls/hr IV.SIG Q2H PRN PRN Reason: For Potassium 2.8 - 3.2 mEq/L Potassium Chloride (Kcl 20 Meq Premix Inj) 20 meq in 100 mls @ 50 mls/hr IV.SIG Q2H PRN PRN Reason: For Potassium 3.3 - 3.5 mEq/L Potassium Chloride (Kcl 40 Meq Premix Inj) 40 meq in 100 mls @ 25 mls/hr IV.SIG UNSCH PRN PRN Reason: For Potassium 3.3 - 3.5 mEq/L Potassium Chloride (Kcl 20 Meq Premix Inj) 20 meq in 100 mls @ 50 mls/hr IV.SIG Q2H PRN PRN Reason: For Potassium 2.8 - 3.2 mEq/L Potassium Phosphate 30 mmol/ (Sodium Chloride) 260 mls @ 42 mls/hr IV.SIG UNSCH PRN PRN Reason: SEE LABEL COMMENTS Sodium Phosphate 30 mmol/ (Sodium Chloride) 260 mls @ 42 mls/hr IV.SIG UNSCH PRN PRN Reason: For Phosphorus < 2.5 mg/dL Magnesium Sulfate Inj 4 gm/ (Sodium Chloride) 100 mls @ 50 mls/hr IV.SIG UNSCH PRN PRN Reason: For Magnesium 0.9 - 1.1 mg/dL Insulin Aspart (Novolog Insulin Correctional Sugar Inj) 0 unit SQ Q6HR [facility]; Protocol Lansoprazole (Prevacid Solutab) 30 mg NG/OG DAILY [facility] Magnesium Oxide (Mag-Ox) 800 mg PO UNSCH PRN PRN Reason: For Magnesium 1.2 - 1.6 mg/dL Methylprednisolone Sodium Succinate (Solumedrol Inj) 40 mg IV.PUSH Q12HR [facility] Last Admin: 06/16/18 08:03 Dose: 40 mg Ondansetron HCl (Zofran Inj) 4 mg IV.PUSH Q6H PRN PRN Reason: NAUSEA OR VOMITING Potassium Bicarb/Potassium Chloride (K-Lyte Cl Eff) 50 meq PO UNSCH PRN PRN Reason: For Potassium 3.3 - 3.5 mEq/L Potassium Phosphate (K-Phos Original) 2,000 mg PO Q4H PRN PRN Reason: Phosphorus Less Than 2.5 mg/dL Potassium Phosphate (K-Phos Original) 2,000 mg PO UNSCH PRN PRN Reason: SEE LABEL COMMENTS Prednisone (Deltasone) 20 mg PO DAILY [facility] Last Admin: 06/15/18 10:56 Dose: Not Given Allergies Allergy/AdvReac Type Severity Reaction Status Date / Time latex Allergy Severe RASH/ITCH Verified 06/14/18 12:00 Home Medications Medication Instructions Recorded Confirmed Type furosemide [Lasix] 20 mg PO DAILY 06/14/18 06/14/18 History prednisone 20 mg PO DAILY 06/14/18 06/14/18 History nebulizers 06/15/18 06/15/18 History Physical Exam Vital signs: Vital Signs 06/15/18 20:00 06/15/18 21:28 06/15/18 23:16 Temperature 97.2 F L 97.8 F Pulse Rate 91 H 80 97 H Respiratory Rate 19 16 16 Blood Pressure 134/63 127/77 Pulse Oximetry 100 100 06/16/18 02:51 06/16/18 03:56 06/16/18 04:00 Temperature 97.8 F Pulse Rate 91 H 88 85 Respiratory Rate 32 H 17 Blood Pressure 129/61 Pulse Oximetry 100 06/16/18 06:13 06/16/18 08:00 06/16/18 09:30 Temperature 97.9 F Pulse Rate 99 H 94 H 93 H Respiratory Rate 32 H 18 Blood Pressure 113/70 Pulse Oximetry 99 06/16/18 11:34 06/16/18 12:10 Temperature 97.3 F L Pulse Rate 96 H 106 H Respiratory Rate 18 36 H Blood Pressure 142/83 H Pulse Oximetry 96 95 Intake & Output 06/15/18 06/16/18 06/16/18 18:59 06:59 18:59 Weight 72.802 kg 69.3 kg Other: # Voids 1 Narrative: GENERAL: 68-year-old female currently orotracheally intubated SKIN: Warm and dry. Healing laceration left forehead HEAD: Atraumatic. Normocephalic. EYES: Pupils equal and round. No scleral icterus. No injection or drainage. ENT: No nasal bleeding or discharge. Mucous membranes pink and moist. NECK: Trachea midline. No JVD. Right IJ with some oozing. CARDIOVASCULAR: Tachycardic, RR. S1, S2 no S4. Without murmur RESPIRATORY: Diminished breath sounds throughout. Positive end expiratory wheezing. GASTROINTESTINAL: Abdomen soft, non-tender, nondistended. Hepatic and splenic margins not palpable. MUSCULOSKELETAL: Extremities without significant peripheral edema. No obvious deformities. NEUROLOGICAL: Sedated on the ventilator status post rocuronium and etomidate. Prior was moving all 4 extremities and yelling Assessment and Plan - Assessment and Plan Plan: Neuro/Psych: Acute encephalopathy secondary to CO2 retention Syncopal event Propofol/fentanyl drips for sedation/analgesia while intubated Goal of RA SS -[address] brain on admission revealed no acute intracranial findings 06/14 Acetaminophen 650 by tube every 6 hours as needed fever CV: Sinus tachycardia Currently normal saline at 75 cc an hour As needed labetalol/Nitropaste for hypertension 2D echocardiogram 06/15 revealed EF around 50%. Aortic valve sclerosis. PA P 53 mmHg CPK/troponin ordered BNP ordered Resp: Acute respiratory failure likely secondary to COPD exacerbation PRVC 18/550/ Ventilator bundle Albuterol/ipratropium aerosols every 4 hours with albuterol aerosols every 2 hours as needed for dyspnea Budesonide 0.5/2 1 inhalation twice daily Methylprednisolone succinate 40 mg IV twice daily Spontaneous breathing trials when clinically indicated Follow postintubation chest x-ray and ABG GI: NG tube to low intermittent wall suction Lansoprazole for GI prophylaxis docusate liquid 100 mg twice daily for bowel regimen : Os[place] catheter placed for accurate I's and O's in a critically ill patient Endo: Hyperglycemia Sliding scale insulin with aspart insulin with Accu-Cheks to maintain euglycemia /every 6 hours Renal: Creatinine currently within normal limits Monitor urine output Accurate I's and O's Heme: Leukocytosis Normocytic anemia Monitor CBC daily. Follow trends No indication for transfusion of blood products at this time ID: Check blood cultures 2, UA, sputum and influenza a and B and Legionella pneumococcal antigens. Day #1 ceftriaxone and azithromycin MSK: PT evaluate and treat FEN: Replace electrolytes as clinically indicated per ICU electrolyte protocol Access -Utilize right IJ CVL day #1 placed 06/16 Prophylax -GI -lansoprazole -DVT -SCDs/heparin subcu Critical care time 35 minutes Code Status: Full code Discussed Condition With: Family/has been full CODE STATUS. Since he has gone home today. Attempted to contact. RN at bedside. Care plan discussed and all questions answered.
--- NOTE | 2018-06-16 17:00 | XR ---
EXAM DATE: 06/16/2018 4:44 PM EDT AGE/SEX: 68 years / Female INDICATIONS: Post intubation and central line placement. CLINICAL DATA: This is the patient's initial encounter. Patient reports that signs and symptoms have been present for 1 day and indicates a pain score of Nonresponsive. MEDICAL/SURGICAL HISTORY: Non-responsive. Non-responsive. COMPARISON: [facility] [place], CHEST SINGLE AP, 03/06/2016. . FINDINGS: Trace atelectasis of the lung bases. No large effusions seen. No pneumothorax. Patient is intubated. Endotracheal tube tip is approximately 1.9 cm above the raj. There is a naso gastric tube with tip at the level of the GE junction, side hole in the distal stomach. There is a ri ght internal jugular central venous catheter with tip at the atriocaval junction. CONCLUSION: 1. Trace basilar atelectasis, mostly on the left. 2. Endotracheal tube tip approximately 2 cm above the raj. 3. Nasogastric tube tip is at the GE junction. 4. Right IJ line tip is at the atrial caval junction. 5. No pneumothorax. Electronically signed by: Toby Badillo MD 06/16/2018 4:58 PM EDT
[2018-06-16 17:12] LABS: ABG Base Excess 12.2 mmol/L (-2-2); ABG PCO2 42 mmHg (38-42); ABG PO2 431 mmHG (61-120)
[2018-06-16 17:30] LABS: Baso % (Auto) 0.1 % (0.0-2.0); Hematocrit 34.7 % (35.0-46.0); Hemoglobin 11.6 gm/dL (11.6-15.3); Lymph # (Auto) 0.7 th/mm3 (1.0-4.8); Lymph % (Auto) 4.7 % (9.0-44.0); Mean Corpuscular HGB Conc 33.3 % (32.0-36.0); Mean Corpuscular Hemoglobin 29.5 pg (27.0-34.0); Mean Corpuscular Volume 88.7 fL (80.0-100.0); Mean Platelet Volume 7.2 fL (7.0-11.0); Mono # (Auto) 0.7 th/mm3 (0.0-0.9); Mono % (Auto) 4.7 % (0.0-8.0); Neut # (Auto) 13.1 th/mm3 (1.8-7.7); Neut % (Auto) 90.5 % (16.0-70.0); Platelet Count 346 th/mm3 (150-450); Red Blood Count 3.91 mil/mm3 (4.00-5.30); Red Cell Distribution Width 14.5 % (11.6-17.2); White Blood Count 14.5 th/mm3 (4.0-11.0)
[2018-06-16 17:46] LABS: Alanine Aminotransferase 31 U/L (10-53); Anion Gap 6 meq/L (5-15); Aspartate Aminotransferase 24 U/L (15-37); Blood Urea Nitrogen 18 mg/dL (7-18); Calcium 9.3 mg/dL (8.5-10.1); Carbon Dioxide 38.1 meq/L (21.0-32.0); Chloride 96 meq/L (98-107); Glomerular Filtration Rate 66 mL/min (>89); Glucose,Random 78 mg/dL (74-106); Sodium 140 meq/L (136-145)
[2018-06-16 17:50] LABS: Alkaline Phosphatase 55 U/L (45-117); Total Protein 6.4 g/dL (6.4-8.2)
[2018-06-16 17:53] LABS: Creatine Kinase 43 U/L (26-192)
[2018-06-16] MEDS: Oral Hygiene Kit OROPHARYNG SCH ×2 (17:53)
[2018-06-16] MEDS: Azithromycin 250 MG Tablet PO SCH (17:54)
[2018-06-16] MEDS: Propofol 1000 mg/100 ml Inj 1,000 MG/100 ML BOTTLE IV.CONT PRN ×2 (17:55→21:58)
[2018-06-16] MEDS: fentaNYL 10 mcg/mL Premix Drip 2,500 MCG/250 ML BAG IV.SIG PRN (17:55)
[2018-06-16] MEDS ORDERED: Chlorhexidine 0.12% Oral Kit 15 ML UDC OROPHARYNG SCH (20:00)
[2018-06-16] MEDS: Chlorhexidine 0.12% Oral Kit 15 ML UDC OROPHARYNG SCH (21:57)
[2018-06-16] MEDS: Docusate Sodium Liq 100 MG/10 ML UDC NG/OG SCH (21:57)
[2018-06-16] MEDS: Hypromellose 0.3% Opth Gel 10 GM Bottle EACH EYE SCH (21:57)
[2018-06-16] MEDS: Insulin NovoLOG Aspart Correctional Sugar Inj SQ SCH (21:57)
[2018-06-16] MEDS: Heparin - SQ 10,000 UNITS/ML Vial SQ SCH (21:58)
[2018-06-17] MEDS ORDERED: Sod Chloride 0.9% Inj 1,000 ML IV.SIG ONE (00:30)
[2018-06-17] MEDS: Insulin NovoLOG Aspart Correctional Sugar Inj SQ SCH ×4 (00:38→17:36)
[2018-06-17] MEDS: Oral Hygiene Kit OROPHARYNG SCH ×4 (00:38→17:36)
[2018-06-17] MEDS: Sod Chloride 0.9% Inj 1,000 ML IV.CONT SCH ×2 (01:42→14:26)
[2018-06-17] MEDS: Norepinephrine Inj 4 MG in Sodium Chlor 0.9% Inj 246 ML IV.SIG PRN (01:43)
[2018-06-17 05:10] LABS: ABG Base Excess 4.4 mmol/L (-2-2); ABG PCO2 46 mmHg (38-42); ABG PO2 97 mmHG (61-120)
[2018-06-17] MEDS: fentaNYL 10 mcg/mL Premix Drip 2,500 MCG/250 ML BAG IV.SIG PRN ×3 (05:11→21:52)
[2018-06-17] MEDS: Propofol 1000 mg/100 ml Inj 1,000 MG/100 ML BOTTLE IV.CONT PRN ×3 (05:12→21:53)
[2018-06-17 05:32] LABS: Baso % (Auto) 0.1 % (0.0-2.0); Hematocrit 29.7 % (35.0-46.0); Hemoglobin 9.6 gm/dL (11.6-15.3); Lymph # (Auto) 0.2 th/mm3 (1.0-4.8); Lymph % (Auto) 1.9 % (9.0-44.0); Mean Corpuscular HGB Conc 32.3 % (32.0-36.0); Mean Corpuscular Hemoglobin 29.3 pg (27.0-34.0); Mean Corpuscular Volume 90.6 fL (80.0-100.0); Mean Platelet Volume 7.2 fL (7.0-11.0); Mono # (Auto) 0.4 th/mm3 (0.0-0.9); Mono % (Auto) 3.5 % (0.0-8.0); Neut # (Auto) 11.9 th/mm3 (1.8-7.7); Neut % (Auto) 94.5 % (16.0-70.0); Platelet Count 320 th/mm3 (150-450); Red Blood Count 3.28 mil/mm3 (4.00-5.30); Red Cell Distribution Width 14.2 % (11.6-17.2); White Blood Count 12.6 th/mm3 (4.0-11.0)
[2018-06-17 05:45] LABS: Alanine Aminotransferase 22 U/L (10-53); Albumin 2.4 g/dL (3.4-5.0); Alkaline Phosphatase 42 U/L (45-117); Anion Gap 10 meq/L (5-15); Aspartate Aminotransferase 19 U/L (15-37); Blood Urea Nitrogen 23 mg/dL (7-18); Calcium 8.1 mg/dL (8.5-10.1); Carbon Dioxide 30.8 meq/L (21.0-32.0); Chloride 101 meq/L (98-107); Glomerular Filtration Rate 65 mL/min (>89); Glucose,Random 113 mg/dL (74-106); Magnesium 2.2 mg/dL (1.5-2.5); Phosphorus 1.4 mg/dL (2.5-4.9); Potassium 3.9 meq/L (3.5-5.1); Sodium 142 meq/L (136-145); Total Protein 5.1 g/dL (6.4-8.2)
[2018-06-17] MEDS: Docusate Sodium Liq 100 MG/10 ML UDC NG/OG SCH ×2 (08:03→21:49)
[2018-06-17] MEDS: Azithromycin 250 MG Tablet PO SCH (08:03)
[2018-06-17] MEDS: MethylPREDNISolone Sod Succinate Inj 40 MG/ML Vial IV.PUSH SCH ×2 (08:04→21:50)
[2018-06-17] MEDS: Hypromellose 0.3% Opth Gel 10 GM Bottle EACH EYE SCH ×2 (08:04→21:50)
[2018-06-17] MEDS: Heparin - SQ 10,000 UNITS/ML Vial SQ SCH ×2 (08:04→21:50)
[2018-06-17] MEDS: Chlorhexidine 0.12% Oral Kit 15 ML UDC OROPHARYNG SCH ×2 (08:04→21:49)
--- NOTE | 2018-06-17 10:59 | P.PNCC ---
Subjective Subjective Remarks/Hospital Course: 06/16: This is a 68-year-old female. Date of admission 06/14/2018. Date of consult 06/16/2018. Past medical history includes COPD, cataracts and ovarian cancer. Patient presented to [facility] on 06/14/18 status post syncopal event at home status post fall. Patient had a laceration 6 cm left forehead which is been sutured. CT brain revealed no acute findings. Patient had carotid ultrasound which revealed no pertinent findings. 2-dimensional echocardiogram revealed EF around 50%. PAP 53 mmHg. Yesterday, patient became more short of breath COPD exacerbation. Patient was scheduled on duo nebs and received methylprednisolone succinate. She is retaining CO2 this morning/afternoon refused BiPAP. Her respiratory rates in the 40s. She is transferred to ICU where decision was made to intubate she is currently a full code. 06/17: Remains sedated, orally intubated on mechanical ventilation. Objective Vital Signs / I&O: Vital Signs 06/16/18 11:34 06/16/18 12:10 06/16/18 16:12 Temperature 97.3 F L Pulse Rate 96 H 106 H 107 H Respiratory Rate 18 36 H Blood Pressure 142/83 H 166/77 H Pulse Oximetry 96 95 100 06/16/18 16:14 06/16/18 16:16 06/16/18 16:18 Temperature Pulse Rate 109 H 109 H 0 L Respiratory Rate Blood Pressure 163/77 H 173/78 H 187/88 H Pulse Oximetry 100 100 100 06/16/18 16:20 06/16/18 16:22 06/16/18 16:24 Temperature Pulse Rate 106 H 106 H 108 H Respiratory Rate 71 H 36 H 36 H Blood Pressure 170/85 H 159/82 H 162/81 H Pulse Oximetry 100 100 100 06/16/18 16:26 06/16/18 16:28 06/16/18 16:30 Temperature Pulse Rate 107 H 106 H 105 H Respiratory Rate 46 H 36 H 35 H Blood Pressure 158/76 H 186/88 H 180/78 H Pulse Oximetry 100 100 100 06/16/18 16:32 06/16/18 16:34 06/16/18 16:36 Temperature Pulse Rate 104 H 113 H 107 H Respiratory Rate 35 H 36 H 34 H Blood Pressure 165/76 H 196/93 H 180/97 H Pulse Oximetry 100 100 100 06/16/18 16:38 06/16/18 16:40 06/16/18 16:46 Temperature Pulse Rate 107 H 107 H Respiratory Rate 29 H 33 H 18 Blood Pressure 188/93 H 181/86 H Pulse Oximetry 100 100 06/16/18 16:48 06/16/18 16:51 06/16/18 17:00 Temperature Pulse Rate 108 H 100 H 100 H Respiratory Rate 36 H 24 35 H Blood Pressure 173/116 H 128/73 136/93 H Pulse Oximetry 93 L 94 L 97 06/16/18 17:30 06/16/18 17:45 06/16/18 18:00 Temperature 98.1 F Pulse Rate 102 H 94 H 90 Respiratory Rate 22 32 H 33 H Blood Pressure 121/57 L 94/52 L 91/55 L Pulse Oximetry 99 99 100 06/16/18 18:15 06/16/18 18:30 06/16/18 18:45 Temperature Pulse Rate 89 87 85 Respiratory Rate 48 H 39 H 36 H Blood Pressure 85/51 L 84/52 L 86/53 L Pulse Oximetry 96 95 96 06/16/18 19:00 06/16/18 20:00 06/16/18 20:20 Temperature 96.9 F L Pulse Rate 93 H 83 80 Respiratory Rate 41 H 15 Blood Pressure 112/58 L 96/55 L Pulse Oximetry 97 100 100 06/17/18 00:00 06/17/18 00:32 06/17/18 03:30 Temperature 96.9 F L Pulse Rate 83 73 Respiratory Rate 33 H 15 Blood Pressure 83/51 L 93/52 L Pulse Oximetry 100 98 06/17/18 03:45 06/17/18 03:57 06/17/18 04:00 Temperature 96.8 F L Pulse Rate 65 81 74 Respiratory Rate 36 H 15 36 H Blood Pressure 92/55 L 92/52 L Pulse Oximetry 98 99 99 06/17/18 04:15 06/17/18 04:30 06/17/18 04:45 Temperature Pulse Rate 63 245 H 75 Respiratory Rate 31 H 44 H 15 Blood Pressure 98/55 L 90/60 L 101/56 L Pulse Oximetry 100 94 L 100 06/17/18 05:00 06/17/18 05:15 06/17/18 05:30 Temperature Pulse Rate 76 76 77 Respiratory Rate 15 41 H 49 H Blood Pressure 104/66 103/62 103/57 L Pulse Oximetry 100 100 100 06/17/18 05:45 06/17/18 06:00 06/17/18 06:16 Temperature Pulse Rate 75 73 70 Respiratory Rate 43 H 48 H 43 H Blood Pressure 102/59 L 106/55 L 109/59 L Pulse Oximetry 100 100 100 06/17/18 06:30 06/17/18 06:45 06/17/18 07:00 Temperature Pulse Rate 72 70 70 Respiratory Rate 51 H 44 H 48 H Blood Pressure 96/54 L 96/54 L 96/54 L Pulse Oximetry 100 100 100 06/17/18 07:15 06/17/18 07:30 06/17/18 07:45 Temperature Pulse Rate 69 71 67 Respiratory Rate 42 H 37 H 35 H Blood Pressure 96/53 L 97/55 L 99/54 L Pulse Oximetry 100 100 100 06/17/18 08:00 06/17/18 08:01 06/17/18 08:16 Temperature 97.9 F Pulse Rate 151 H 161 H 90 Respiratory Rate 38 H 40 H 31 H Blood Pressure 112/68 154/63 H Pulse Oximetry 96 90 L 100 06/17/18 08:30 06/17/18 08:45 06/17/18 09:00 Temperature Pulse Rate 66 70 69 Respiratory Rate 32 H 35 H 43 H Blood Pressure 95/54 L 106/56 L 102/55 L Pulse Oximetry 100 100 100 06/17/18 09:15 06/17/18 09:30 Temperature Pulse Rate 69 65 Respiratory Rate 43 H 40 H Blood Pressure 96/53 L 95/50 L Pulse Oximetry 99 99 Intake & Output 06/16/18 06/17/18 06/17/18 18:59 06:59 18:59 Intake Total 1450 / 1450 Output Total 175 / 175 Balance 1275 / 1275 Weight 69.3 kg 73.3 kg Intake: IV 1450 / 1450 Diprivan 1000 mg/100 ml Inj 1, 200 / 200 000 mg In 100 ml @ 5 MCG/KG/MIN 2.184 mls/hr IV.CONT TITRATE PRN Rx#:[id number] NS Inj 1,000 ML @ 75 mls/hr IV. 1000 / 1000 CONT .[id number] [facility] Rx#:[id number] fentaNYL 10 mcg/mL Premix Drip 250 / 250 2,500 mcg In 250 ml @ 50 MCG/HR 5 mls/hr IV.SIG TITRATE PRN Rx #:[id number] Oral 0 / 0 Output: Urine Amount (Catheter) 175 / 175 Indwelling Urethral Catheter 175 / 175 Other: # Voids 1 0 # Bowel Movements 0 Result Diagrams: 06/17/18 03:55 06/17/18 03:55 Imaging: Cervical Spine CT 06/14/18 11:31 CONCLUSION: 1. Multilevel degenerative changes. 2. No fracture or subluxation Head CT 06/14/18 11:31 CONCLUSION: 1. Nonspecific white matter changes. 2. No acute intracranial abnormality. . Carotid Doppler Study 06/15/18 00:00 CONCLUSION: Study was terminated at the patient's request. Mild plaque seen of the right carotid bifurcation. No other meaningful findings were obtained. Chest X-Ray 06/16/18 00:00 CONCLUSION: 1. Trace basilar atelectasis, mostly on the left. 2. Endotracheal tube tip approximately 2 cm above the raj. 3. Nasogastric tube tip is at the GE junction. 4. Right IJ line tip is at the atrial caval junction. 5. No pneumothorax. Assessment and Plan - Assessment and Plan Plan: Neuro/Psych: Acute encephalopathy secondary to CO2 retention Syncopal event Propofol/fentanyl drips for sedation/analgesia while intubated Goal of RA SS -[address] brain on admission revealed no acute intracranial findings 06/14 Acetaminophen 650 by tube every 6 hours as needed fever CV: Sinus tachycardia Currently normal saline at 75 cc an hour As needed labetalol/Nitropaste for hypertension 2D echocardiogram 06/15 revealed EF around 50%. Aortic valve sclerosis. PA P 53 mmHg CPK/troponin ordered BNP ordered Resp: Acute respiratory failure likely secondary to COPD exacerbation PRVC 18/550/1/5/100 Ventilator bundle Albuterol/ipratropium aerosols every 4 hours with albuterol aerosols every 2 hours as needed for dyspnea Budesonide 0.5/2 1 inhalation twice daily Methylprednisolone succinate 40 mg IV twice daily Spontaneous breathing trials when clinically indicated Follow postintubation chest x-ray and ABG GI: Start tube feeds and advance to goal as tolerated Lansoprazole for GI prophylaxis docusate liquid 100 mg twice daily for bowel regimen : Osuna catheter placed for accurate I's and O's in a critically ill patient Endo: Hyperglycemia Sliding scale insulin with aspart insulin with Accu-Cheks to maintain euglycemia /every 6 hours Renal: Creatinine currently within normal limits Monitor urine output Accurate I's and O's Heme: Leukocytosis Normocytic anemia Monitor CBC daily. Follow trends No indication for transfusion of blood products at this time ID: Check blood cultures 2, UA, sputum and influenza a and B and Legionella pneumococcal antigens. (06/16) ceftriaxone and azithromycin MSK: PT evaluate and treat FEN: Replace electrolytes as clinically indicated per ICU electrolyte protocol Access -Utilize right IJ CVL placed 06/16 Prophylax -GI -lansoprazole -DVT -SCDs/heparin subcu Critical care time 35 minutes
--- NOTE | 2018-06-17 12:01 | P.DIET ---
Nutritional Evaluation Type of nutrition evaluation: initial Nutrition consult regarding: Tube Feeding Subjective Subjective Comments: intubated Objective - Diagnosis Syncope - Objective [place] body weight: 52.3 kg % IBW: 141 Body Weight Used for Calculations: IBW Energy Needs - Lower Range (kCal/kg): 30 Energy Needs - Upper Range (kCal/kg): 35 Lower Limit kCal/kg (kCals): 1,569 Upper Limit kCal/kg (kCals): 1,831 Lower Limit Protein Factor (Grams per Kg): 1.4 Upper Limit Protein Factor (Grams per Kg): 1.7 Lower Protein Needs (Protein): 73 Upper Protein Needs (Protein): 90 Dietitian Reviewed in Medical Record: Curent medications, Intake & Output, Labs , Medical history, Tube feeding Diet Order: TF'ing ONLY: Glucerna 1.5 @ goal rate 60ml/hr Objective Comments: PMH: Chronic Steroid Use, COPD, ovarian cancer, left cataract Random Glucose 113, Accucheck 60 Assessment Assessment: Pt is at nutritional risk r/t need for TF'ing. To best meet pt's assessed needs for TF'ing w/Glucerna 1.5, Rec a goal rate @ 45ml/hr to offer 1620 kcals, 89.1g protein and 820ml free water. Propofol provides some additional kcals(1.1 kcal/ ml)when running. Recommendations: 1. To best meet pt's assessed needs for TF'ing w/Glucerna 1.5, Rec a goal rate @ 45ml/hr 2. Propofol provides some additional kcals(1.1 kcal/ml)when running Dietitian to Monitor: Lab values, Electrolytes, Glucose level, Intake & Output, Tube feeding tolerance, Weight change, Medical course
[2018-06-18] MEDS: Oral Hygiene Kit OROPHARYNG SCH ×4 (00:57→16:26)
[2018-06-18] MEDS: Insulin NovoLOG Aspart Correctional Sugar Inj SQ SCH ×4 (00:57→17:39)
[2018-06-18] MEDS: Sod Chloride 0.9% Inj 1,000 ML IV.CONT SCH ×2 (03:49→14:54)
[2018-06-18] MEDS: Norepinephrine Inj 4 MG in Sodium Chlor 0.9% Inj 246 ML IV.SIG PRN (03:49)
[2018-06-18] MEDS: Propofol 1000 mg/100 ml Inj 1,000 MG/100 ML BOTTLE IV.CONT PRN ×3 (03:50→09:53)
[2018-06-18 09:09] LABS: Baso % (Auto) 0.1 % (0.0-2.0); Hematocrit 29.3 % (35.0-46.0); Hemoglobin 9.7 gm/dL (11.6-15.3); Lymph # (Auto) 0.7 th/mm3 (1.0-4.8); Lymph % (Auto) 5.4 % (9.0-44.0); Mean Corpuscular HGB Conc 33.2 % (32.0-36.0); Mean Corpuscular Hemoglobin 29.6 pg (27.0-34.0); Mean Corpuscular Volume 89.2 fL (80.0-100.0); Mean Platelet Volume 7.4 fL (7.0-11.0); Mono # (Auto) 0.9 th/mm3 (0.0-0.9); Mono % (Auto) 6.9 % (0.0-8.0); Neut # (Auto) 11.9 th/mm3 (1.8-7.7); Neut % (Auto) 87.6 % (16.0-70.0); Platelet Count 288 th/mm3 (150-450); Red Blood Count 3.28 mil/mm3 (4.00-5.30); Red Cell Distribution Width 14.7 % (11.6-17.2); White Blood Count 13.6 th/mm3 (4.0-11.0)
[2018-06-18 09:19] LABS: Albumin 2.2 g/dL (3.4-5.0); Anion Gap 8 meq/L (5-15); Aspartate Aminotransferase 17 U/L (15-37); Blood Urea Nitrogen 23 mg/dL (7-18); Chloride 106 meq/L (98-107); Glomerular Filtration Rate 65 mL/min (>89); Glucose,Random 125 mg/dL (74-106); Potassium 3.7 meq/L (3.5-5.1); Sodium 143 meq/L (136-145)
[2018-06-18 09:22] LABS: Alanine Aminotransferase 21 U/L (10-53); Alkaline Phosphatase 39 U/L (45-117)
[2018-06-18] MEDS: Docusate Sodium Liq 100 MG/10 ML UDC NG/OG SCH ×2 (09:44→21:51)
[2018-06-18] MEDS: Heparin - SQ 10,000 UNITS/ML Vial SQ SCH ×2 (09:45→21:50)
[2018-06-18] MEDS: Azithromycin 250 MG Tablet PO SCH (09:45)
[2018-06-18] MEDS: MethylPREDNISolone Sod Succinate Inj 40 MG/ML Vial IV.PUSH SCH ×2 (09:45→21:50)
[2018-06-18] MEDS: Chlorhexidine 0.12% Oral Kit 15 ML UDC OROPHARYNG SCH ×2 (09:45→21:50)
[2018-06-18] MEDS: Hypromellose 0.3% Opth Gel 10 GM Bottle EACH EYE SCH ×2 (09:47→21:51)
[2018-06-18] MEDS: fentaNYL 10 mcg/mL Premix Drip 2,500 MCG/250 ML BAG IV.SIG PRN (09:52)
--- NOTE | 2018-06-18 10:48 | P.PNCC ---
Subjective Subjective Remarks/Hospital Course: 06/16: This is a 68-year-old female. Date of admission 06/14/2018. Date of consult 06/16/2018. Past medical history includes COPD, cataracts and ovarian cancer. Patient presented to [facility] on 06/14/18 status post syncopal event at home status post fall. Patient had a laceration 6 cm left forehead which is been sutured. CT brain revealed no acute findings. Patient had carotid ultrasound which revealed no pertinent findings. 2-dimensional echocardiogram revealed EF around 50%. PAP 53 mmHg. Yesterday, patient became more short of breath COPD exacerbation. Patient was scheduled on duo nebs and received methylprednisolone succinate. She is retaining CO2 this morning/afternoon refused BiPAP. Her respiratory rates in the 40s. She is transferred to ICU where decision was made to intubate she is currently a full code. 06/17: Remains sedated, orally intubated on mechanical ventilation. 06/18: Sedated, orally intubated on mechanical ventilation. Objective Vital Signs / I&O: Vital Signs 06/17/18 11:00 06/17/18 11:15 06/17/18 11:30 Temperature Pulse Rate 63 65 67 Respiratory Rate 38 H 44 H 31 H Blood Pressure 104/55 L 107/58 L 103/52 L Pulse Oximetry 100 100 100 06/17/18 11:45 06/17/18 11:56 06/17/18 12:00 Temperature Pulse Rate 66 65 Respiratory Rate 37 H 9 L 36 H Blood Pressure 102/57 L 95/52 L Pulse Oximetry 100 100 100 06/17/18 12:15 06/17/18 12:30 06/17/18 12:45 Temperature Pulse Rate 65 65 65 Respiratory Rate 40 H 38 H 38 H Blood Pressure 93/55 L 92/54 L 91/51 L Pulse Oximetry 99 99 99 06/17/18 13:00 06/17/18 13:15 06/17/18 13:30 Temperature Pulse Rate 67 63 66 Respiratory Rate 28 H 35 H 31 H Blood Pressure 95/53 L 99/53 L 96/52 L Pulse Oximetry 99 100 98 06/17/18 13:45 06/17/18 14:00 06/17/18 14:15 Temperature Pulse Rate 70 64 86 Respiratory Rate 24 36 H 32 H Blood Pressure 94/55 L 91/52 L 134/89 Pulse Oximetry 98 99 80 L 06/17/18 14:30 06/17/18 14:45 06/17/18 14:52 Temperature Pulse Rate 69 69 69 Respiratory Rate 33 H 34 H 10 L Blood Pressure 96/51 L 104/54 L Pulse Oximetry 100 99 06/17/18 15:00 06/17/18 15:15 06/17/18 15:30 Temperature Pulse Rate 70 69 67 Respiratory Rate 36 H 38 H 36 H Blood Pressure 90/51 L 87/50 L 89/53 L Pulse Oximetry 94 L 95 96 06/17/18 15:45 06/17/18 16:00 06/17/18 16:15 Temperature 97.6 F Pulse Rate 67 72 71 Respiratory Rate 37 H 31 H 31 H Blood Pressure 94/51 L 87/53 L 90/52 L Pulse Oximetry 96 97 97 06/17/18 16:30 06/17/18 16:45 06/17/18 17:00 Temperature Pulse Rate 70 67 69 Respiratory Rate 32 H 54 H 34 H Blood Pressure 92/54 L 89/52 L 97/53 L Pulse Oximetry 97 97 97 06/17/18 17:15 06/17/18 17:30 06/17/18 20:00 Temperature 97.2 F L Pulse Rate 66 72 66 Respiratory Rate 39 H 43 H 37 H Blood Pressure 88/53 L 92/51 L 88/50 L Pulse Oximetry 99 94 L 99 06/17/18 21:23 06/17/18 21:24 06/18/18 00:00 Temperature 97.3 F L Pulse Rate 66 66 Respiratory Rate 15 15 15 Blood Pressure 118/56 L Pulse Oximetry 100 100 06/18/18 01:19 06/18/18 04:00 06/18/18 04:26 Temperature 97.8 F Pulse Rate 99 H 64 60 Respiratory Rate 15 15 15 Blood Pressure 86/47 L Pulse Oximetry 93 L 97 100 06/18/18 09:01 06/18/18 09:07 Temperature Pulse Rate 70 Respiratory Rate 15 16 Blood Pressure Pulse Oximetry 98 99 Intake & Output 06/17/18 06/18/18 06/18/18 18:59 06:59 18:59 Intake Total 1900 / 1900 2603 / 2603 350 / 350 Output Total 250 / 250 350 / 350 Balance 1650 / 1650 2253 / 2253 350 / 350 Weight 77.1 kg Intake: IV 1810 / 1810 1700 / 1700 350 / 350 Diprivan 1000 mg/100 ml Inj 1, 200 / 200 200 / 200 100 / 100 000 mg In 100 ml @ 5 MCG/KG/MIN 2.184 mls/hr IV.CONT TITRATE PRN Rx#:[id number] NS Inj 1,000 ML @ 75 mls/hr IV. 1000 / 1000 1000 / 1000 CONT .[id number] [facility] Rx#:[id number] Levophed Inj 4 MG In NS Inj 246 250 / 250 ML @ 2 MCG/MIN 7.5 mls/hr IV. SIG TITRATE PRN Rx#:[id number] Sodium Phosphate Inj 30 MMOL In 260 / 260 NS Inj 250 ML @ 42 mls/hr IV. SIG UNSCH PRN Rx#:[id number] Rocephin Inj 2,000 MG In NS Inj 100 / 100 100 ML @ 200 mls/hr IV.SIG Q24H [facility] Rx#:[id number] fentaNYL 10 mcg/mL Premix Drip 250 / 250 250 / 250 250 / 250 2,500 mcg In 250 ml @ 50 MCG/HR 5 mls/hr IV.SIG TITRATE PRN Rx #:[id number] Oral 0 / 0 Tube Feeding 903 / 903 Tube Irrigant 90 / 90 0 / 0 Output: Urine 250 / 250 0 / 0 Urine Amount (Catheter) 350 / 350 Indwelling Urethral Catheter 350 / 350 Other: # Voids 0 # Bowel Movements 0 0 Result Diagrams: 06/18/18 08:37 06/18/18 08:37 Objective Remarks: HEENT/ Neuro: Sedated, orally intubated, Pallor present, no icterus, tongue/ mucosa dry Neck: No JVD Chest/Pulm: on mech vent, good air entry bilaterally, no wheezing or crackles CVS: S1-S2 regular, no murmur GI/abdomen: soft, nontender, bowel sounds sluggish Extremities: warm bilaterally, no edema Assessment and Plan - Assessment and Plan Plan: Neuro/Psych: Acute encephalopathy secondary to CO2 retention Syncopal event Propofol/fentanyl drips for sedation/analgesia while intubated Goal of RA SS -[address] brain on admission revealed no acute intracranial findings 06/14 Acetaminophen 650 by tube every 6 hours as needed fever CV: Sinus tachycardia Currently normal saline at 75 cc an hour As needed labetalol/Nitropaste for hypertension 2D echocardiogram 06/15 revealed EF around 50%. Aortic valve sclerosis. PA P 53 mmHg CPK/troponin ordered BNP ordered Resp: Acute respiratory failure likely secondary to COPD exacerbation [facility] 18/550/ Ventilator bundle Albuterol/ipratropium aerosols every 4 hours with albuterol aerosols every 2 hours as needed for dyspnea Budesonide 0.5/2 1 inhalation twice daily Methylprednisolone succinate 40 mg IV twice daily Spontaneous breathing trials GI: Start tube feeds and advance to goal as tolerated Lansoprazole for GI prophylaxis docusate liquid 100 mg twice daily for bowel regimen : Osuna catheter placed for accurate I's and O's in a critically ill patient Endo: Hyperglycemia Sliding scale insulin with aspart insulin with Accu-Cheks to maintain euglycemia /every 6 hours Renal: Creatinine currently within normal limits Monitor urine output Accurate I's and O's Heme: Leukocytosis Normocytic anemia Monitor CBC daily. Follow trends No indication for transfusion of blood products at this time ID: Check blood cultures 2, UA, sputum and influenza a and B and Legionella pneumococcal antigens. (06/16) ceftriaxone and azithromycin MSK: PT evaluate and treat FEN: Replace electrolytes as clinically indicated per ICU electrolyte protocol Access -Utilize right IJ CVL placed 06/16 Prophylax -GI -lansoprazole -DVT -SCDs/heparin subcu Critical care time 35 minutes
[2018-06-18 17:24] LABS: Bacteria,Urine Moderate /hpf; Bilirubin,Urine Negative (Negative); Clarity,Urine Hazy (Clear); Color,Urine Yellow (Yellw/Straw); Glucose,Urine (UA) Negative (Negative); Hyaline Casts,Urine 1 /lpf (0-3); Leukocyte Esterase,Urine Small (Negative); Mucus,Urine Few /lpf (Occasional); Nitrite,Urine Negative (Negative); Specific Gravity,Urine 1.025 (1.002-1.035); Squamous Epithelial Cell,Urine <1 /hpf (0-5)
[2018-06-19] MEDS: Oral Hygiene Kit OROPHARYNG SCH ×5 (00:52→17:32)
[2018-06-19] MEDS: Insulin NovoLOG Aspart Correctional Sugar Inj SQ SCH ×4 (00:52→19:12)
[2018-06-19] MEDS: Propofol 1000 mg/100 ml Inj 1,000 MG/100 ML BOTTLE IV.CONT PRN (03:24)
[2018-06-19] MEDS: Sod Chloride 0.9% Inj 1,000 ML IV.CONT SCH ×3 (03:24→22:49)
[2018-06-19] MEDS: Azithromycin 250 MG Tablet PO SCH (09:20)
[2018-06-19] MEDS: Docusate Sodium Liq 100 MG/10 ML UDC NG/OG SCH ×2 (09:20→22:47)
[2018-06-19] MEDS: Hypromellose 0.3% Opth Gel 10 GM Bottle EACH EYE SCH ×2 (09:20→22:47)
[2018-06-19] MEDS: MethylPREDNISolone Sod Succinate Inj 40 MG/ML Vial IV.PUSH SCH ×2 (09:20→22:48)
[2018-06-19] MEDS: Chlorhexidine 0.12% Oral Kit 15 ML UDC OROPHARYNG SCH ×2 (09:20→22:47)
[2018-06-19] MEDS: Heparin - SQ 10,000 UNITS/ML Vial SQ SCH ×2 (09:21→22:46)
--- NOTE | 2018-06-19 09:56 | P.PNCC ---
Subjective Subjective Remarks/Hospital Course: 06/16: This is a 68-year-old female. Date of admission 06/14/2018. Date of consult 06/16/2018. Past medical history includes COPD, cataracts and ovarian cancer. Patient presented to [facility] on 06/14/18 status post syncopal event at home status post fall. Patient had a laceration 6 cm left forehead which is been sutured. CT brain revealed no acute findings. Patient had carotid ultrasound which revealed no pertinent findings. 2-dimensional echocardiogram revealed EF around 50%. PAP 53 mmHg. Yesterday, patient became more short of breath COPD exacerbation. Patient was scheduled on duo nebs and received methylprednisolone succinate. She is retaining CO2 this morning/afternoon refused BiPAP. Her respiratory rates in the 40s. She is transferred to ICU where decision was made to intubate she is currently a full code. 06/17: Remains sedated, orally intubated on mechanical ventilation. 06/18, 06/19: Sedated, orally intubated on mechanical ventilation. Objective Vital Signs / I&O: Vital Signs 06/18/18 10:00 06/18/18 12:00 06/18/18 12:05 Temperature 98.7 F Pulse Rate 90 85 83 Respiratory Rate 15 11 L Blood Pressure 127/60 Pulse Oximetry 93 L 06/18/18 12:30 06/18/18 12:47 06/18/18 13:00 Temperature Pulse Rate 87 79 Respiratory Rate 18 15 15 Blood Pressure 130/62 101/56 L Pulse Oximetry 92 L 97 06/18/18 13:30 06/18/18 14:00 06/18/18 14:01 Temperature Pulse Rate 74 81 105 H Respiratory Rate 15 24 27 H Blood Pressure 104/52 L 124/60 Pulse Oximetry 96 96 98 06/18/18 14:30 06/18/18 14:59 06/18/18 15:00 Temperature Pulse Rate 74 75 Respiratory Rate 15 15 17 Blood Pressure 109/55 L 106/57 L Pulse Oximetry 95 96 96 06/18/18 15:30 06/18/18 16:00 06/18/18 16:17 Temperature 98.8 F Pulse Rate 74 71 74 Respiratory Rate 15 15 15 Blood Pressure 110/58 L 115/56 L Pulse Oximetry 97 97 06/18/18 16:30 06/18/18 17:00 06/18/18 17:30 Temperature Pulse Rate 75 74 75 Respiratory Rate 17 15 15 Blood Pressure 116/56 L 106/53 L 113/55 L Pulse Oximetry 98 97 96 06/18/18 18:00 06/18/18 18:22 06/18/18 18:30 Temperature Pulse Rate 78 75 Respiratory Rate 79 H 15 114 H Blood Pressure 116/56 L 110/53 L Pulse Oximetry 96 96 96 06/18/18 19:00 06/18/18 19:30 06/18/18 20:00 Temperature 99.5 F Pulse Rate 75 80 85 Respiratory Rate 84 H 88 H 67 H Blood Pressure 122/55 L 128/59 L 108/65 Pulse Oximetry 96 97 96 06/18/18 20:30 06/18/18 20:33 06/18/18 21:00 Temperature Pulse Rate 76 73 79 Respiratory Rate 71 H 15 65 H Blood Pressure 118/58 L 118/57 L Pulse Oximetry 97 96 97 06/18/18 21:30 06/18/18 22:00 06/18/18 22:01 Temperature Pulse Rate 78 111 H 106 H Respiratory Rate 55 H 45 H 33 H Blood Pressure 114/56 L 141/76 H Pulse Oximetry 96 98 100 06/18/18 22:30 06/18/18 22:36 06/18/18 23:00 Temperature Pulse Rate 78 74 Respiratory Rate 21 15 16 Blood Pressure 125/60 101/52 L Pulse Oximetry 98 96 96 06/18/18 23:30 06/18/18 23:33 06/19/18 00:00 Temperature 99.1 F Pulse Rate 74 74 75 Respiratory Rate 20 15 23 Blood Pressure 118/56 L 117/56 L Pulse Oximetry 97 06/19/18 01:21 06/19/18 02:00 06/19/18 04:00 Temperature 99 F Pulse Rate 71 64 Respiratory Rate 15 15 Blood Pressure 89/54 L Pulse Oximetry 96 06/19/18 04:12 06/19/18 04:15 06/19/18 06:00 Temperature Pulse Rate 76 93 H Respiratory Rate 15 17 Blood Pressure Pulse Oximetry 97 06/19/18 07:47 Temperature Pulse Rate 70 Respiratory Rate 15 Blood Pressure Pulse Oximetry 97 Intake & Output 06/18/18 06/19/18 06/19/18 18:59 06:59 18:59 Intake Total 1717 / 1717 2064 / 2064 Output Total 275 / 275 360 / 360 Balance 1442 / 1442 1704 / 1704 Weight 77.3 kg Intake: IV 1350 / 1350 1200 / 1200 Diprivan 1000 mg/100 ml Inj 1, 100 / 100 100 / 100 000 mg In 100 ml @ 5 MCG/KG/MIN 2.184 mls/hr IV.CONT TITRATE PRN Rx#:[id number] NS Inj 1,000 ML @ 75 mls/hr IV. 1000 / 1000 1000 / 1000 CONT .[id number] [facility] Rx#:[id number] Rocephin Inj 2,000 MG In NS Inj 100 / 100 100 ML @ 200 mls/hr IV.SIG Q24H [facility] Rx#:[id number] fentaNYL 10 mcg/mL Premix Drip 250 / 250 2,500 mcg In 250 ml @ 50 MCG/HR 5 mls/hr IV.SIG TITRATE PRN Rx #:[id number] Oral 0 / 0 Tube Feeding 337 / 337 744 / 744 Tube Irrigant 30 / 30 Water Bolus Amount 120 / 120 Output: Urine 275 / 275 Urine Amount (Catheter) 360 / 360 Indwelling Urethral Catheter 360 / 360 Other: # Voids 0 # Bowel Movements 0 Result Diagrams: 06/18/18 08:37 06/18/18 08:37 Objective Remarks: HEENT/ Neuro: Sedated, orally intubated, Pallor present, no icterus, tongue/ mucosa dry Neck: No JVD Chest/Pulm: on [facility] vent, good air entry bilaterally, no wheezing or crackles CVS: S1-S2 regular, no murmur GI/abdomen: soft, nontender, bowel sounds sluggish Extremities: warm bilaterally, no edema Assessment and Plan - Assessment and Plan Plan: Neuro/Psych: Acute encephalopathy secondary to CO2 retention Syncopal event Propofol/fentanyl drips for sedation/analgesia while intubated Goal of RA SS -[address] brain on admission revealed no acute intracranial findings 06/14 Acetaminophen 650 by tube every 6 hours as needed fever CV: Sinus tachycardia Currently normal saline at 75 cc an hour As needed labetalol/Nitropaste for hypertension 2D echocardiogram 06/15 revealed EF around 50%. Aortic valve sclerosis. PA P 53 mmHg Resp: Acute respiratory failure likely secondary to COPD exacerbation On [facility] ventilation. Ventilator bundle Albuterol/ipratropium aerosols every 4 hours with albuterol aerosols every 2 hours as needed for dyspnea Budesonide 0.5/2 1 inhalation twice daily Methylprednisolone succinate 40 mg IV twice daily Spontaneous breathing trials GI: Start tube feeds and advance to goal as tolerated Lansoprazole for GI prophylaxis docusate liquid 100 mg twice daily for bowel regimen : Osuna catheter placed for accurate I's and O's in a critically ill patient Endo: Hyperglycemia Sliding scale insulin with aspart insulin with Accu-Cheks to maintain euglycemia /every 6 hours Renal: Creatinine currently within normal limits Monitor urine output Accurate I's and O's Heme: Leukocytosis Normocytic anemia Monitor CBC daily. Follow trends No indication for transfusion of blood products at this time ID: Check blood cultures 2, UA, sputum and influenza a and B and Legionella pneumococcal antigens. (06/16) ceftriaxone and azithromycin MSK: PT evaluate and treat FEN: Replace electrolytes as clinically indicated per ICU electrolyte protocol Access -Utilize right IJ CVL placed 06/16 Prophylax -GI -lansoprazole -DVT -SCDs/heparin subcu Critical care time 35 minutes
[2018-06-19 10:09] LABS: ABG Base Excess 5.7 mmol/L (-2-2); ABG PCO2 52 mmHg (38-42); ABG PO2 91 mmHG (61-120)
[2018-06-19 12:26] LABS: Baso % (Auto) 0.2 % (0.0-2.0); Hematocrit 34.9 % (35.0-46.0); Hemoglobin 10.8 gm/dL (11.6-15.3); Lymph # (Auto) 0.3 th/mm3 (1.0-4.8); Lymph % (Auto) 2.6 % (9.0-44.0); Mean Corpuscular HGB Conc 31.1 % (32.0-36.0); Mean Corpuscular Hemoglobin 28.6 pg (27.0-34.0); Mean Corpuscular Volume 92.1 fL (80.0-100.0); Mean Platelet Volume 7.2 fL (7.0-11.0); Mono # (Auto) 0.4 th/mm3 (0.0-0.9); Mono % (Auto) 3.7 % (0.0-8.0); Neut # (Auto) 10.8 th/mm3 (1.8-7.7); Neut % (Auto) 93.5 % (16.0-70.0); Platelet Count 221 th/mm3 (150-450); Red Blood Count 3.79 mil/mm3 (4.00-5.30); Red Cell Distribution Width 14.9 % (11.6-17.2); White Blood Count 11.6 th/mm3 (4.0-11.0)
[2018-06-19 13:01] LABS: Alanine Aminotransferase 22 U/L (10-53); Albumin 2.6 g/dL (3.4-5.0); Anion Gap 4 meq/L (5-15); Aspartate Aminotransferase 17 U/L (15-37); Blood Urea Nitrogen 24 mg/dL (7-18); Calcium 8.5 mg/dL (8.5-10.1); Carbon Dioxide 29.7 meq/L (21.0-32.0); Chloride 110 meq/L (98-107); Glomerular Filtration Rate 76 mL/min (>89); Glucose,Random 137 mg/dL (74-106); Potassium 4.8 meq/L (3.5-5.1); Sodium 144 meq/L (136-145)
[2018-06-19 13:12] LABS: Alkaline Phosphatase 47 U/L (45-117); Total Protein 5.8 g/dL (6.4-8.2)
[2018-06-19] MEDS ORDERED: Labetalol HCl Inj 100 MG/20 ML Vial IV.PUSH PRN (14:14)
[2018-06-20] MEDS: Insulin NovoLOG Aspart Correctional Sugar Inj SQ SCH ×4 (01:15→18:04)
[2018-06-20] MEDS: Oral Hygiene Kit OROPHARYNG SCH ×4 (01:17→15:46)
[2018-06-20] MEDS: Heparin - SQ 10,000 UNITS/ML Vial SQ SCH ×2 (08:12→21:01)
[2018-06-20] MEDS: Docusate Sodium Liq 100 MG/10 ML UDC NG/OG SCH ×2 (08:13→21:00)
[2018-06-20] MEDS: Chlorhexidine 0.12% Oral Kit 15 ML UDC OROPHARYNG SCH ×2 (08:13→20:59)
[2018-06-20] MEDS: Azithromycin 250 MG Tablet PO SCH (08:13)
[2018-06-20] MEDS: MethylPREDNISolone Sod Succinate Inj 40 MG/ML Vial IV.PUSH SCH ×2 (08:13→21:02)
[2018-06-20] MEDS: Hypromellose 0.3% Opth Gel 10 GM Bottle EACH EYE SCH ×2 (08:44→21:01)
--- NOTE | 2018-06-20 11:34 | P.PNIM ---
Subjective Interval history: 06/16: This is a 68-year-old female. Date of admission 06/14/2018. Date of consult 06/16/2018. Past medical history includes COPD, cataracts and ovarian cancer. Patient presented to [facility] on 06/14/18 status post syncopal event at home status post fall. Patient had a laceration 6 cm left forehead which is been sutured. CT brain revealed no acute findings. Patient had carotid ultrasound which revealed no pertinent findings. 2-dimensional echocardiogram revealed EF around 50%. PAP 53 mmHg. Yesterday, patient became more short of breath COPD exacerbation. Patient was scheduled on duo nebs and received methylprednisolone succinate. She is retaining CO2 this morning/afternoon refused BiPAP. Her respiratory rates in the 40s. She is transferred to ICU where decision was made to intubate she is currently a full code. 06/17: Remains sedated, orally intubated on mechanical ventilation. 06/18, 06/19: Sedated, orally intubated on mechanical ventilation. 06/20. Patient extubated yesterday. He says she is feeling all right. Denies any chest pain. Denies any shortness of breath, however breathing does appear somewhat difficult for her. Physical Exam Vital signs: Vital Signs 06/19/18 12:00 06/19/18 14:00 06/19/18 15:58 Temperature 98.6 F Pulse Rate 86 88 90 Respiratory Rate 15 24 Blood Pressure 152/71 H Pulse Oximetry 96 06/19/18 16:00 06/19/18 18:00 06/19/18 20:00 Temperature 98.7 F 98.5 F Pulse Rate 88 96 H 95 H Respiratory Rate 24 21 Blood Pressure 165/80 H 164/75 H Pulse Oximetry 99 95 06/19/18 20:43 06/19/18 22:00 06/20/18 00:00 Temperature 98.6 F Pulse Rate 95 H 92 H 100 H Respiratory Rate 24 24 Blood Pressure 147/73 H Pulse Oximetry 94 L 96 06/20/18 00:24 06/20/18 02:00 06/20/18 04:00 Temperature 98.7 F Pulse Rate 102 H 98 H 92 H Respiratory Rate 24 22 Blood Pressure 147/71 H Pulse Oximetry 98 06/20/18 04:07 06/20/18 06:00 06/20/18 07:00 Temperature Pulse Rate 98 H 96 H 93 H Respiratory Rate 24 20 Blood Pressure Pulse Oximetry 06/20/18 08:00 06/20/18 08:49 06/20/18 10:00 Temperature 98.6 F Pulse Rate 93 H 96 H Respiratory Rate 18 Blood Pressure 135/63 Pulse Oximetry 96 93 L Intake & Output 06/19/18 06/20/18 06/20/18 18:59 06:59 18:59 Intake Total 2613 / 2613 1550 / 1550 Output Total 2500 / 2500 1500 / 1500 Balance 113 / 113 50 / 50 Weight 77 kg Intake: IV 2300 / 2300 1000 / 1000 NS Inj 1,000 ML @ 75 mls/hr IV. 1000 / 1000 1000 / 1000 CONT .[id number] [facility] Rx#:[id number] Rocephin Inj 2,000 MG In NS Inj 100 / 100 100 ML @ 200 mls/hr IV.SIG Q24H [facility] Rx#:[id number] fentaNYL 10 mcg/mL Premix Drip 200 / 200 2,500 mcg In 250 ml @ 50 MCG/HR 5 mls/hr IV.SIG TITRATE PRN Rx #:[id number] Oral 30 / 30 0 / 0 Tube Feeding 223 / 223 Tube Irrigant 60 / 60 Other 550 / 550 Output: Urine 0 / 0 Urine Amount (Catheter) 2500 / 2500 1500 / 1500 Indwelling Urethral Catheter 2500 / 2500 1500 / 1500 Other: # Voids 0 # Bowel Movements 0 Narrative: GENERAL: Patient sitting up in bed. Appears comfortable. SKIN: Warm and dry. HEAD: Normocephalic. EYES: No scleral icterus. No injection or drainage. NECK: Supple, trachea midline. No JVD or lymphadenopathy. CARDIOVASCULAR: Regular rate and rhythm without murmurs, gallops, or rubs. RESPIRATORY: Breath sounds equal bilaterally. Poor air movement bilaterally. No accessory muscle use. GASTROINTESTINAL: Abdomen soft, non-tender, nondistended. MUSCULOSKELETAL: No cyanosis, or edema. BACK: Nontender without obvious deformity. No CVA tenderness. - Urinary Catheter Management Indwelling Urethral Catheter Cath placed during this visit: yes Reason for continuing: Hourly intake/output Insertion date: 06/16/18 Results - Labs CBC & Chem 7: 06/19/18 11:30 06/19/18 11:30 Laboratory Results - last 24 hr 06/19/18 06/19/1818 11:30 11:30 11:48 WBC 11.6 H RBC 3.79 L Hgb 10.8 L Hct 34.9 L MCV 92.1 MCH 28.6 MCHC 31.1 L RDW 14.9 Plt Count 221 MPV 7.2 Neut % (Auto) 93.5 H Lymph % (Auto) 2.6 L [place] % (Auto) 3.7 Eos % (Auto) 0.0 Baso % (Auto) 0.2 Neut # (Auto) 10.8 H Lymph # (Auto) 0.3 L [place] # (Auto) 0.4 Eos # (Auto) 0.0 Baso # (Auto) 0.0 WBC Differential . Differential Comment Auto diff final Sodium 144 Potassium 4.8 D Chloride 110 H Carbon Dioxide 29.7 Anion Gap 4 L BUN 24 H Creatinine 0.76 Estimated GFR 76 L POC Glucose 144 H Random Glucose 137 H Calcium 8.5 Total Bilirubin 0.2 AST 17 ALT 22 Alkaline Phosphatase 47 Total Protein 5.8 L D Albumin 2.6 L 06/19/18 06/20/18 06/20/18 17:34 00:04 06:32 WBC RBC Hgb Hct MCV MCH MCHC RDW Plt Count MPV Neut % (Auto) Lymph % (Auto) [place] % (Auto) Eos % (Auto) Baso % (Auto) Neut # (Auto) Lymph # (Auto) [place] # (Auto) Eos # (Auto) Baso # (Auto) WBC Differential Differential Comment Sodium Potassium Chloride Carbon Dioxide Anion Gap BUN Creatinine Estimated GFR POC Glucose 139 H 93 93 Random Glucose Calcium Total Bilirubin AST ALT Alkaline Phosphatase Total Protein Albumin Microbiology 06/16/18 16:43 Blood - Peripheral Aerobic Blood Culture - Preliminary No growth in 4 days 06/16/18 16:43 Blood - Peripheral Anaerobic Blood Culture - Preliminary No growth in 4 days 06/16/18 16:48 Blood - Peripheral Aerobic Blood Culture - Preliminary No growth in 4 days 06/16/18 16:48 Blood - Peripheral Anaerobic Blood Culture - Preliminary No growth in 4 days 06/18/18 15:45 Catheterized Urine Urine Culture - Final No growth in 48 hours 06/17/18 00:55 Sputum - Endotracheal Gram Stain - Final 06/17/18 00:55 Sputum - Endotracheal Sputum Culture - Final Heavy growth normal respiratory cindy Assessment and Plan - Assessment (1) Syncope Code(s): R55 - Syncope and collapse Status: Acute (2) Laceration Status: Acute (3) COPD (chronic obstructive pulmonary disease) Code(s): J44.9 - Chronic obstructive pulmonary disease, unspecified Status: Acute - Plan //Acute encephalopathy secondary to CO2 retention //Syncopal event CT brain on admission revealed no acute intracranial findings 06/14 = Carotid ultrasound without significant stenosis = Negative cervical CT. = Extubated 06/19. Suspect syncopal event, as well as encephalopathy was secondary to COPD exacerbation/hypercapnia. //COPD exacerbation. //Suspected pulmonary hypertension = Status post respiratory failure. Extubated. Echocardiogram 06/15 with EF 50%, aortic valve sclerosis, pulmonary artery pressure estimated at 53 mmHg. = Continue azithromycin, ceftriaxone, IV steroids, nebs.. = Urine culture heavy growth of normal cindy =Consult pulmonology. Appreciate assistance. //Leukocytosis = Improving 11.6. Continue to monitor. //Hypertension. = Blood pressure acceptable. As needed meds ordered. Continue to monitor. //Sinus tachycardia = Reactive. Continue to monitor. //Steroid-induced hyperglycemia = Secondary to IV steroids. Sliding scale insulin with aspart insulin with Accu-Cheks to maintain euglycemia /every 6 hours //Normocytic anemia. Hemoglobin 10.8. Stable. //IV access. Keep right IJ for now. Plan removed tomorrow if not needed. //Prophylax -GI -lansoprazole -DVT -SCDs/heparin subcu Discussed Condition With: Patient, nurse Discharge Planning: PT following. Will likely need rehab (1) Syncope Qualifiers: Syncope type: unspecified Qualified Code(s): R55 - Syncope and collapse (3) COPD (chronic obstructive pulmonary disease) Qualifiers: COPD type: unspecified COPD Qualified Code(s): J44.9 - Chronic obstructive pulmonary disease, unspecified
--- NOTE | 2018-06-20 12:06 | XR ---
EXAM DATE: 06/20/2018 11:52 AM EDT AGE/SEX: 68 years / Female INDICATIONS: Bronchitis. CLINICAL DATA: This is the patient's initial encounter. Patient reports that signs and symptoms have been present for 3 days and indicates a pain score of 0/10. MEDICAL/SURGICAL HISTORY: . none known None. none known COMPARISON: C, CHEST 1V SINGLE AP, 06/16/2018. . FINDINGS: The right IJ central venous catheters in good position. The endotracheal tube and nasogastric tube mancia ve been removed. The lungs demonstrate chronic interstitial changes but are otherwise clear. The pare nchyma is stable compared to the previous exam. The osseous structures demonstrate old, healed posterior fifth rib fracture on the left but are other siddiqui intact. CONCLUSION: Stable chest. Parenchyma similar compared to previous. Patient has been extubated. Electronically signed by: Negrito Veras MD 06/20/2018 12:05 PM EDT
[2018-06-20 14:27] LABS: Baso % (Auto) 0.2 % (0.0-2.0); Hematocrit 32.8 % (35.0-46.0); Hemoglobin 10.5 gm/dL (11.6-15.3); Lymph # (Auto) 0.3 th/mm3 (1.0-4.8); Lymph % (Auto) 2.4 % (9.0-44.0); Mean Corpuscular HGB Conc 32.2 % (32.0-36.0); Mean Corpuscular Hemoglobin 28.8 pg (27.0-34.0); Mean Corpuscular Volume 89.6 fL (80.0-100.0); Mean Platelet Volume 7.3 fL (7.0-11.0); Mono # (Auto) 0.2 th/mm3 (0.0-0.9); Mono % (Auto) 1.7 % (0.0-8.0); Neut # (Auto) 13.6 th/mm3 (1.8-7.7); Neut % (Auto) 95.7 % (16.0-70.0); Platelet Count 211 th/mm3 (150-450); Red Blood Count 3.66 mil/mm3 (4.00-5.30); Red Cell Distribution Width 14.7 % (11.6-17.2); White Blood Count 14.2 th/mm3 (4.0-11.0)
[2018-06-20] MEDS: Sod Chloride 0.9% Inj 1,000 ML IV.CONT SCH ×2 (14:34→16:25)
[2018-06-20 15:02] LABS: Albumin 2.5 g/dL (3.4-5.0); Anion Gap 5 meq/L (5-15); Blood Urea Nitrogen 18 mg/dL (7-18); Calcium 8.3 mg/dL (8.5-10.1); Carbon Dioxide 35.1 meq/L (21.0-32.0); Chloride 104 meq/L (98-107); Glomerular Filtration Rate Greater Than 89 mL/min (>89); Glucose,Random 128 mg/dL (74-106); Phosphorus 2.8 mg/dL (2.5-4.9); Potassium 4.3 meq/L (3.5-5.1); Sodium 144 meq/L (136-145)
[2018-06-20 16:33] LABS: Hemoglobin A1c 5.4 % (4.3-6.0)
--- NOTE | 2018-06-20 22:27 | MB ---
cc: Edvin Jimenez MD, Jeffrey D MD DATE: 06/20/2018 REQUESTING PHYSICIAN: Ortiz Slater MD REASON FOR CONSULTATION: COPD and respiratory failure. HISTORY OF PRESENT ILLNESS: Ms. Lara is a 68-year-old female with a longstanding history of smoking, which she quit in 2010. She has history of COPD. She is oxygen dependent and uses oxygen 24/7. She was brought to the hospital after a syncopal episode. She states she was sitting on the couch and that is the only thing she remembers. She was brought to the hospital. She had a 6 cm laceration on the forehead, which was repaired. The patient went into respiratory failure so she was intubated. She was successfully extubated yesterday. Currently, she is on nasal cannula. Denies any shortness of breath. No fever or chills. No night sweats. No chest pain. PAST MEDICAL HISTORY: History of COPD, hypertension, syncopal episode, history of surgery in the left lung. MEDICATIONS: She is currently taking albuterol and Atrovent nebulizer treatments, Zithromax 500 mg a day, Pulmicort nebulizer treatments, Rocephin 1 gram a day, clonidine 0.1 mg p.r.n., Prevacid 30 mg a day, Solu-Medrol 40 mg q.12 hours. ALLERGIES: SHE IS ALLERGIC TO LATEX. 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 She has a history of smoking 2 packs to 2-1/2 packs most of her life. She quit in 2010. She has no significant history of alcohol use. FAMILY HISTORY: She is for the second time and lives with her . REVIEW OF SYSTEMS: Normally, she is up, around and active. She uses oxygen all the time. No seizure, stroke, pulmonary embolism or malignancy. PHYSICAL EXAMINATION: GENERAL: Elderly female mildly short of breath, not in acute distress. VITAL SIGNS: Blood pressure 153/69, heart rate 87, respirations 17, temperature 98.6. HEENT: Pupils are equal and reactive to light. Oral mucosa and nasal mucosa normal. NECK: Supple. No JVD noted. CHEST: She has expiratory rhonchi. CARDIOVASCULAR: S1, S2 normal. ABDOMEN: Benign. EXTREMITIES: No edema. IMPRESSION: 1. Respiratory failure, status post extubation. 2. Chronic obstructive pulmonary disease. 3. Nicotine use. 4. Hypertension. 5. Syncopal episode. 6. Laceration on the forehead. PLAN: We will give her IV Solu-Medrol and wean to her p.o. steroids. We will give her aerosol treatments and supplemental oxygen. Continue present antibiotic. Once she gets better, we will check a pulmonary function study. Further treatment will depend on the course in the hospital. Thank you, Dr. Slater, for the consult. MD CARLOS MANUEL Cassidy/sonal , 07:47 PM , 07:58 PM
[2018-06-21] MEDS: Insulin NovoLOG Aspart Correctional Sugar Inj SQ SCH ×5 (00:50→23:27)
[2018-06-21] MEDS: Oral Hygiene Kit OROPHARYNG SCH ×5 (00:50→23:27)
[2018-06-21] MEDS: Sod Chloride 0.9% Inj 1,000 ML IV.CONT SCH ×3 (00:51→21:43)
[2018-06-21] MEDS: Azithromycin 250 MG Tablet PO SCH (08:14)
[2018-06-21] MEDS: MethylPREDNISolone Sod Succinate Inj 40 MG/ML Vial IV.PUSH SCH ×2 (08:15→21:27)
[2018-06-21] MEDS: Heparin - SQ 10,000 UNITS/ML Vial SQ SCH ×2 (08:15→21:27)
[2018-06-21] MEDS: Chlorhexidine 0.12% Oral Kit 15 ML UDC OROPHARYNG SCH ×2 (08:20→21:21)
[2018-06-21] MEDS: Docusate Sodium Liq 100 MG/10 ML UDC NG/OG SCH ×2 (08:20→21:21)
[2018-06-21] MEDS: Hypromellose 0.3% Opth Gel 10 GM Bottle EACH EYE SCH ×2 (08:20→21:27)
--- NOTE | 2018-06-21 17:19 | P.PNIM ---
Subjective Interval history: Patient says she is feeling a little better today. Breathing is a little better. Denies any chest pain. Physical Exam Vital signs: Vital Signs 06/20/18 18:00 06/20/18 19:00 06/20/18 20:00 Temperature 99.0 F Pulse Rate 93 H 82 83 Respiratory Rate 45 H 33 H 38 H Blood Pressure 149/73 H 138/67 135/63 Pulse Oximetry 96 99 98 06/20/18 20:21 06/20/18 21:00 06/20/18 22:00 Temperature Pulse Rate 85 87 89 Respiratory Rate 19 35 H 27 H Blood Pressure 144/68 H Pulse Oximetry 98 98 96 06/20/18 22:01 06/20/18 23:00 06/20/18 23:01 Temperature Pulse Rate 90 84 84 Respiratory Rate 30 H 32 H 33 H Blood Pressure 140/65 156/72 H Pulse Oximetry 95 97 97 06/20/18 23:30 06/21/18 00:00 06/21/18 01:00 Temperature 99 F Pulse Rate 86 91 H 91 H Respiratory Rate 19 36 H 30 H Blood Pressure 143/64 H 138/66 Pulse Oximetry 96 98 06/21/18 02:00 06/21/18 03:00 06/21/18 04:00 Temperature 99.0 F Pulse Rate 81 77 113 H Respiratory Rate 25 H 25 H 38 H Blood Pressure 134/64 161/69 H 153/67 H Pulse Oximetry 99 98 94 L 06/21/18 04:01 06/21/18 05:00 06/21/18 06:00 Temperature Pulse Rate 93 H 70 71 Respiratory Rate 46 H 23 24 Blood Pressure 153/67 H 134/63 160/70 H Pulse Oximetry 94 L 99 100 06/21/18 07:00 06/21/18 07:01 06/21/18 08:00 Temperature 98.2 F Pulse Rate 67 69 75 Respiratory Rate 21 23 31 H Blood Pressure 130/62 138/65 Pulse Oximetry 100 100 96 06/21/18 08:17 06/21/18 09:00 06/21/18 10:00 Temperature Pulse Rate 87 76 71 Respiratory Rate 18 91 H 100 H Blood Pressure 155/70 H Pulse Oximetry 95 98 100 06/21/18 10:01 06/21/18 10:51 06/21/18 11:00 Temperature Pulse Rate 71 89 87 Respiratory Rate 113 H 22 37 H Blood Pressure 146/65 H 181/74 H Pulse Oximetry 100 97 06/21/18 11:46 06/21/18 12:00 06/21/18 12:01 Temperature 98.4 F Pulse Rate 94 H 93 H 99 H Respiratory Rate 46 H 36 H 43 H Blood Pressure 171/73 H 171/73 H 212/77 H Pulse Oximetry 92 L 95 96 06/21/18 12:08 06/21/18 13:00 06/21/18 16:00 Temperature 98.3 F Pulse Rate 93 H 90 87 Respiratory Rate 37 H 39 H 20 Blood Pressure 147/68 H 155/71 H 147/79 H Pulse Oximetry 91 L 94 L 99 Intake & Output 06/20/18 06/21/18 06/21/18 18:59 06:59 18:59 Intake Total 1340 / 1340 1350 / 1350 Output Total 185 / 1849 Balance -510 / -510 -750 / -750 -1999 Weight 74.7 kg Intake: IV 1100 / 1100 1000 / 1000 NS Inj 1,000 ML @ 75 mls/hr IV. 1000 / 1000 1000 / 1000 CONT .[id number] [facility] Rx#:[id number] Rocephin Inj 2,000 MG In NS Inj 100 / 100 100 ML @ 200 mls/hr IV.SIG Q24H [facility] Rx#:[id number] Oral 240 / 240 350 / 350 Output: Stool 0 / 0 Urine/Stool Mix 0 / 0 Urine Amount (Catheter) 1849 Indwelling Urethral Catheter 1849 Other: Date of Last Bowel Movement 06/21/18 # Bowel Movements 0 0 1 Narrative: GENERAL: Patient sitting up in bed. Appears comfortable. SKIN: Warm and dry. HEAD: Normocephalic. EYES: No scleral icterus. No injection or drainage. NECK: Supple, trachea midline. No JVD or lymphadenopathy. CARDIOVASCULAR: Regular rate and rhythm without murmurs, gallops, or rubs. RESPIRATORY: Breath sounds equal bilaterally. Improved air movement today. Dry crackles in the bases. No accessory muscle use. GASTROINTESTINAL: Abdomen soft, non-tender, nondistended. MUSCULOSKELETAL: No cyanosis, or edema. BACK: Nontender without obvious deformity. No CVA tenderness. - Urinary Catheter Management Indwelling Urethral Catheter Cath placed during this visit: yes, but has since been removed by the nurse Reason for continuing: Not indwelling catheter Insertion date: 06/16/18 Removal date: 06/21/18 Removal time: 13:50 Results - Labs CBC & Chem 7: 06/20/18 13:45 06/20/18 13:45 Laboratory Results - last 24 hr 06/20/18 06/20/18 06/20/18 13:45 17:36 23:10 POC Glucose 116 H 87 Hemoglobin A1c 5.4 06/21/18 06/21/18 06:10 12:13 POC Glucose 100 111 H Hemoglobin A1c Microbiology 06/16/18 16:43 Blood - Peripheral Aerobic Blood Culture - Final No growth in 5 days 06/16/18 16:43 Blood - Peripheral Anaerobic Blood Culture - Final No growth in 5 days 06/16/18 16:48 Blood - Peripheral Aerobic Blood Culture - Final No growth in 5 days 06/16/18 16:48 Blood - Peripheral Anaerobic Blood Culture - Final No growth in 5 days Assessment and Plan - Assessment (1) Syncope Code(s): R55 - Syncope and collapse Status: Acute (2) Laceration Status: Acute (3) COPD (chronic obstructive pulmonary disease) Code(s): J44.9 - Chronic obstructive pulmonary disease, unspecified Status: Acute - Plan //Acute encephalopathy secondary to CO2 retention //Syncopal event CT brain on admission revealed no acute intracranial findings 06/14 = Carotid ultrasound without significant stenosis = Negative cervical CT. = Extubated 06/19. Suspect syncopal event, as well as encephalopathy was secondary to COPD exacerbation/hypercapnia. = 06/21. Patient denies any lightheadedness or dizziness. We will continue to treat for COPD exacerbation as below. //COPD exacerbation. //Suspected pulmonary hypertension = Status post respiratory failure. Extubated. Echocardiogram 06/15 with EF 50%, aortic valve sclerosis, pulmonary artery pressure estimated at 53 mmHg. = Continue azithromycin, ceftriaxone, IV steroids, nebs.. = Urine culture heavy growth of normal cindy =Consult pulmonology. Appreciate assistance. = 06/21. Improving on nebs, IV steroids. Transfer to floor. Pulmonology following. Appreciate assistance. Continue to monitor. //Leukocytosis = 06/21. 14.2 yesterday likely secondary to steroids. //Hypertension. = Blood pressure acceptable in the 140 systolic.. As needed meds ordered. Continue to monitor. //Sinus tachycardia = Reactive. Continue to monitor. //Steroid-induced hyperglycemia = Secondary to IV steroids. Glucose acceptable. //Normocytic anemia. Hemoglobin 10.8. Stable. //IV access. Keep right IJ for now. Plan removed tomorrow if not needed. //Prophylax -GI -lansoprazole -DVT -SCDs/heparin subcu Discharge Planning: PT following. Will need rehab/SNF. (1) Syncope Qualifiers: Syncope type: unspecified Qualified Code(s): R55 - Syncope and collapse (3) COPD (chronic obstructive pulmonary disease) Qualifiers: COPD type: unspecified COPD Qualified Code(s): J44.9 - Chronic obstructive pulmonary disease, unspecified
--- NOTE | 2018-06-21 19:31 | P.PNPL ---
Subjective Interval history: 68 YOWF with COPD Exac, Syncopy Feels much better On NC Denies sob or CP Physical Exam Vital signs: Vital Signs 06/20/18 20:00 06/20/18 20:21 06/20/18 21:00 Temperature 99.0 F Pulse Rate 83 85 87 Respiratory Rate 38 H 19 35 H Blood Pressure 135/63 144/68 H Pulse Oximetry 98 98 98 06/20/18 22:00 06/20/18 22:01 06/20/18 23:00 Temperature Pulse Rate 89 90 84 Respiratory Rate 27 H 30 H 32 H Blood Pressure 140/65 Pulse Oximetry 96 95 97 06/20/18 23:01 06/20/18 23:30 06/21/18 00:00 Temperature 99 F Pulse Rate 84 86 91 H Respiratory Rate 33 H 19 36 H Blood Pressure 156/72 H 143/64 H Pulse Oximetry 97 96 06/21/18 01:00 06/21/18 02:00 06/21/18 03:00 Temperature Pulse Rate 91 H 81 77 Respiratory Rate 30 H 25 H 25 H Blood Pressure 138/66 134/64 161/69 H Pulse Oximetry 98 99 98 06/21/18 04:00 06/21/18 04:01 06/21/18 05:00 Temperature 99.0 F Pulse Rate 113 H 93 H 70 Respiratory Rate 38 H 46 H 23 Blood Pressure 153/67 H 153/67 H 134/63 Pulse Oximetry 94 L 94 L 99 06/21/18 06:00 06/21/18 07:00 06/21/18 07:01 Temperature Pulse Rate 71 67 69 Respiratory Rate 24 21 23 Blood Pressure 160/70 H 130/62 Pulse Oximetry 100 100 100 06/21/18 08:00 06/21/18 08:17 06/21/18 09:00 Temperature 98.2 F Pulse Rate 75 87 76 Respiratory Rate 31 H 18 91 H Blood Pressure 138/65 155/70 H Pulse Oximetry 96 95 98 06/21/18 10:00 06/21/18 10:01 06/21/18 10:51 Temperature Pulse Rate 71 71 89 Respiratory Rate 100 H 113 H 22 Blood Pressure 146/65 H Pulse Oximetry 100 100 06/21/18 11:00 06/21/18 11:46 06/21/18 12:00 Temperature 98.4 F Pulse Rate 87 94 H 93 H Respiratory Rate 37 H 46 H 36 H Blood Pressure 181/74 H 171/73 H 171/73 H Pulse Oximetry 97 92 L 95 06/21/18 12:01 06/21/18 12:08 06/21/18 13:00 Temperature Pulse Rate 99 H 93 H 90 Respiratory Rate 43 H 37 H 39 H Blood Pressure 212/77 H 147/68 H 155/71 H Pulse Oximetry 96 91 L 94 L 06/21/18 16:00 06/21/18 18:38 Temperature 98.3 F Pulse Rate 87 85 Respiratory Rate 20 18 Blood Pressure 147/79 H Pulse Oximetry 99 98 Intake & Output 06/21/18 06/21/18 06/22/18 06:59 18:59 06:59 Intake Total 1350 / 1350 100 / 100 Output Total 2099 Balance -750 / -750 -2001 100 / 100 Weight 74.7 kg Intake: IV 1000 / 1000 100 / 100 NS Inj 1,000 ML @ 75 mls/hr IV. 1000 / 1000 CONT .[id number] [facility] Rx#:[id number] Rocephin Inj 2,000 MG In NS Inj 100 / 100 100 ML @ 200 mls/hr IV.SIG Q24H [facility] Rx#:[id number] Oral 350 / 350 Output: Urine 2 / 2 Stool 0 / 0 Urine/Stool Mix 0 / 0 Urine Amount (Catheter) 2099 Indwelling Urethral Catheter 2099 Other: Date of Last Bowel Movement 06/21/18 # Bowel Movements 0 1 GENERAL: Elderly WF,NAD SKIN: Warm and dry. HEAD: Atraumatic. Normocephalic. laceration on forehead EYES: Pupils equal and round. No scleral icterus. No injection or drainage. ENT: No nasal bleeding or discharge. Mucous membranes pink and moist. NECK: Trachea midline. No JVD. CARDIOVASCULAR: Regular rate and rhythm. RESPIRATORY: No accessory muscle use. Clear to auscultation. Breath sounds equal bilaterally. GASTROINTESTINAL: Abdomen soft, non-tender, nondistended. Hepatic and splenic margins not palpable. MUSCULOSKELETAL: Extremities without clubbing, cyanosis, or edema. No obvious deformities. NEUROLOGICAL: Awake and alert. No obvious cranial nerve deficits. Motor grossly within normal limits. Five out of 5 muscle strength in the arms and legs. Normal speech. PSYCHIATRIC: Appropriate mood and affect; insight and judgment normal. - Urinary Catheter Management Indwelling Urethral Catheter Cath placed during this visit: yes, but has since been removed by the nurse Reason for continuing: Not indwelling catheter Insertion date: 06/16/18 Removal date: 06/21/18 Removal time: 13:50 Assessment and Plan - Plan IMPRESSION: 1. Respiratory failure, status post extubation. 2. Chronic obstructive pulmonary disease. 3. Nicotine use. 4. Hypertension. 5. Syncopal episode. 6. Laceration on the forehead. PLAN: Aerosol nebs IV Solumedrol Supplement 02 PFT
[2018-06-22] MEDS: Sod Chloride 0.9% Inj 1,000 ML IV.CONT SCH ×2 (02:53→16:41)
[2018-06-22] MEDS: Oral Hygiene Kit OROPHARYNG SCH ×4 (03:39→23:59)
[2018-06-22] MEDS: Insulin NovoLOG Aspart Correctional Sugar Inj SQ SCH ×4 (05:03→23:59)
[2018-06-22] MEDS: Chlorhexidine 0.12% Oral Kit 15 ML UDC OROPHARYNG SCH ×2 (07:45→19:43)
[2018-06-22 07:58] LABS: Baso % (Auto) 0.1 % (0.0-2.0); Hematocrit 33.6 % (35.0-46.0); Hemoglobin 11.1 gm/dL (11.6-15.3); Lymph # (Auto) 0.8 th/mm3 (1.0-4.8); Lymph % (Auto) 7.6 % (9.0-44.0); Mean Corpuscular HGB Conc 33.1 % (32.0-36.0); Mean Corpuscular Hemoglobin 29.4 pg (27.0-34.0); Mean Corpuscular Volume 88.9 fL (80.0-100.0); Mean Platelet Volume 7.4 fL (7.0-11.0); Mono # (Auto) 0.6 th/mm3 (0.0-0.9); Mono % (Auto) 5.9 % (0.0-8.0); Neut # (Auto) 8.6 th/mm3 (1.8-7.7); Neut % (Auto) 86.4 % (16.0-70.0); Platelet Count 219 th/mm3 (150-450); Red Blood Count 3.77 mil/mm3 (4.00-5.30); Red Cell Distribution Width 14.3 % (11.6-17.2)
[2018-06-22] MEDS: Docusate Sodium Liq 100 MG/10 ML UDC NG/OG SCH ×2 (08:01→21:27)
[2018-06-22] MEDS: Heparin - SQ 10,000 UNITS/ML Vial SQ SCH ×2 (08:01→21:26)
[2018-06-22] MEDS: MethylPREDNISolone Sod Succinate Inj 40 MG/ML Vial IV.PUSH SCH ×2 (08:02→21:26)
[2018-06-22] MEDS: Azithromycin 250 MG Tablet PO SCH (08:02)
[2018-06-22] MEDS: Hypromellose 0.3% Opth Gel 10 GM Bottle EACH EYE SCH ×2 (08:03→21:27)
[2018-06-22 08:29] LABS: Albumin 2.4 g/dL (3.4-5.0); Anion Gap 4 meq/L (5-15); Blood Urea Nitrogen 13 mg/dL (7-18); Calcium 8.4 mg/dL (8.5-10.1); Carbon Dioxide 36.2 meq/L (21.0-32.0); Chloride 105 meq/L (98-107); Glomerular Filtration Rate Greater Than 89 mL/min (>89); Glucose,Random 113 mg/dL (74-106); Magnesium 2.2 mg/dL (1.5-2.5); Phosphorus 3.6 mg/dL (2.5-4.9); Sodium 145 meq/L (136-145)
--- NOTE | 2018-06-22 08:42 | P.PNIM ---
Subjective Interval history: f/u; copd exacerbation with mild sob/ on three liters of oxygen via N/C. denies pain and no fever. Physical Exam Vital signs: Vital Signs 06/21/18 09:00 06/21/18 10:00 06/21/18 10:01 Temperature Pulse Rate 76 71 71 Respiratory Rate 91 H 100 H 113 H Blood Pressure 155/70 H 146/65 H Pulse Oximetry 98 100 100 06/21/18 10:51 06/21/18 11:00 06/21/18 11:46 Temperature Pulse Rate 89 87 94 H Respiratory Rate 22 37 H 46 H Blood Pressure 181/74 H 171/73 H Pulse Oximetry 97 92 L 06/21/18 12:00 06/21/18 12:01 06/21/18 12:08 Temperature 98.4 F Pulse Rate 93 H 99 H 93 H Respiratory Rate 36 H 43 H 37 H Blood Pressure 171/73 H 212/77 H 147/68 H Pulse Oximetry 95 96 91 L 06/21/18 13:00 06/21/18 16:00 06/21/18 18:38 Temperature 98.3 F Pulse Rate 90 87 85 Respiratory Rate 39 H 20 18 Blood Pressure 155/71 H 147/79 H Pulse Oximetry 94 L 99 98 06/21/18 20:00 06/21/18 22:25 06/22/18 00:00 Temperature 98.3 F 97.8 F Pulse Rate 89 83 88 Respiratory Rate 18 20 20 Blood Pressure 153/74 H 162/73 H Pulse Oximetry 100 98 06/22/18 02:36 06/22/18 03:43 06/22/18 04:00 Temperature 97.8 F Pulse Rate 87 84 76 Respiratory Rate 20 18 Blood Pressure 154/78 H Pulse Oximetry 100 98 06/22/18 07:48 06/22/18 08:00 Temperature Pulse Rate 87 Respiratory Rate 18 Blood Pressure Pulse Oximetry 99 99 Intake & Output 06/21/18 06/22/18 06/22/18 18:59 06:59 18:59 Intake Total 520 / 520 Output Total 2001 950 / 950 Balance -2001 -2001 -430 / -430 Weight 73.5 kg Intake: IV 100 / 100 Rocephin Inj 2,000 MG In NS Inj 100 / 100 100 ML @ 200 mls/hr IV.SIG Q24H [facility] Rx#:[id number] Oral 420 / 420 Output: Urine 950 / 950 Urine Amount (Catheter) 1999 Indwelling Urethral Catheter 1999 Other: Date of Last Bowel Movement 06/21/18 06/21/18 # Bowel Movements 1 - Constitutional mild distress - Routine Respiratory Exam Present: wheezes, diminished air movement - Routine Cardiovascular Exam Present: RRR - Routine Abdominal Exam Present: soft - Routine Extremities Exam Comments: no pedal edema. - Routine Skin Exam Comments: left forehead laceration- s/p repair- looks dry. - Routine Neurological Exam Present: alert, oriented X3 - Urinary Catheter Management Indwelling Urethral Catheter Cath placed during this visit: yes, but has since been removed by the nurse Reason for continuing: Not indwelling catheter Insertion date: 06/16/18 Removal date: 06/21/18 Removal time: 13:50 Results - Labs CBC & Chem 7: 06/22/18 07:33 06/22/18 07:33 Laboratory Results - last 24 hr 06/21/18 06/21/18 06/21/18 12:13 17:19 23:27 WBC RBC Hgb Hct MCV MCH MCHC RDW Plt Count MPV Neut % (Auto) Lymph % (Auto) [place] % (Auto) Eos % (Auto) Baso % (Auto) Neut # (Auto) Lymph # (Auto) [place] # (Auto) Eos # (Auto) Baso # (Auto) WBC Differential Differential Comment Sodium Potassium Chloride Carbon Dioxide Anion Gap BUN Creatinine Estimated GFR POC Glucose 111 H 98 128 H Random Glucose Calcium Phosphorus Magnesium Albumin 06/22/18 06/22/18 07:33 07:33 WBC 10.0 RBC 3.77 L Hgb 11.1 L Hct 33.6 L MCV 88.9 MCH 29.4 MCHC 33.1 RDW 14.3 Plt Count 219 MPV 7.4 Neut % (Auto) 86.4 H Lymph % (Auto) 7.6 L [place] % (Auto) 5.9 Eos % (Auto) 0.0 Baso % (Auto) 0.1 Neut # (Auto) 8.6 H Lymph # (Auto) 0.8 L [place] # (Auto) 0.6 Eos # (Auto) 0.0 Baso # (Auto) 0.0 WBC Differential . Differential Comment Auto diff final Sodium 145 Potassium 4.0 Chloride 105 Carbon Dioxide 36.2 H Anion Gap 4 L BUN 13 Creatinine 0.60 Estimated GFR Greater than 89 POC Glucose Random Glucose 113 H Calcium 8.4 L Phosphorus 3.6 Magnesium 2.2 Albumin 2.4 L Microbiology 06/16/18 16:43 Blood - Peripheral Aerobic Blood Culture - Final No growth in 5 days 06/16/18 16:43 Blood - Peripheral Anaerobic Blood Culture - Final No growth in 5 days 06/16/18 16:48 Blood - Peripheral Aerobic Blood Culture - Final No growth in 5 days 06/16/18 16:48 Blood - Peripheral Anaerobic Blood Culture - Final No growth in 5 days - Procedures intubation/ extubation. Assessment and Plan - Assessment (1) Syncope Code(s): R55 - Syncope and collapse Status: Acute (2) Laceration Status: Acute (3) COPD (chronic obstructive pulmonary disease) Code(s): J44.9 - Chronic obstructive pulmonary disease, unspecified Status: Acute - Plan Acute encephalopathy secondary to CO2 retention- resolved Syncopal event CT brain on admission revealed no acute intracranial findings 06/14 = Carotid ultrasound without significant stenosis = Negative cervical CT. = Extubated 06/19. Suspect syncopal event, as well as encephalopathy was secondary to COPD exacerbation/hypercapnia. COPD exacerbation-improving slowly. Suspected pulmonary hypertension = Status post respiratory failure. Extubated. Echocardiogram 06/15 with EF 50%, aortic valve sclerosis, pulmonary artery pressure estimated at 53 mmHg. = Continue azithromycin, ceftriaxone, IV steroids, nebs.. = Urine culture heavy growth of normal cindy =Consulted pulmonology. Appreciate assistance. -patient is on home oxygen. -Hypertension. = As needed meds ordered. Continue to monitor. Sinus tachycardia = Reactive. Continue to monitor. -Steroid-induced hyperglycemia = Secondary to IV steroids. -Normocytic anemia. will monitor. //Prophylax -GI -lansoprazole -DVT -SCDs/heparin subcu Discharge Planning: within the next 48 hrs if continues to improve. rehab was d/w the patient but she wants to go home. awaiting PT evaluation today. d/w the PT at the bedside. (1) Syncope Qualifiers: Syncope type: unspecified Qualified Code(s): R55 - Syncope and collapse (3) COPD (chronic obstructive pulmonary disease) Qualifiers: COPD type: unspecified COPD Qualified Code(s): J44.9 - Chronic obstructive pulmonary disease, unspecified
--- NOTE | 2018-06-22 14:27 | P.DCO ---
- Physical Therapy Order: Evaluate and treat - Home Health Nursing Order: Medical education, Signs/symptoms of disease process, Medication education-adverse effect, Nursing assessment with vital signs - Certification I have seen patient Kiya Lara on 06/22/18. My clinical findings support the need for the requested home health care services because: Patient has SOB I certify that my clinical findings support that this patient is homebound because: Hx COPD - exertion dyspnea/weakness
--- NOTE | 2018-06-22 20:09 | P.PNPL ---
Subjective Interval history: 68 YOWF with COPD Exac, Syncopy Feels much better On NC Denies sob or CP Good appetite Weak, does't want to go to rehab Physical Exam Vital signs: Vital Signs 06/21/18 22:25 06/22/18 00:00 06/22/18 02:36 Temperature 97.8 F Pulse Rate 83 88 87 Respiratory Rate 20 20 20 Blood Pressure 162/73 H Pulse Oximetry 98 100 06/22/18 03:43 06/22/18 04:00 06/22/18 07:48 Temperature 97.8 F Pulse Rate 84 76 Respiratory Rate 18 Blood Pressure 154/78 H Pulse Oximetry 98 99 06/22/18 08:00 06/22/18 12:00 06/22/18 16:00 Temperature 98.0 F 98.1 F 98.3 F Pulse Rate 81 82 87 Respiratory Rate 16 16 16 Blood Pressure 154/74 H 155/75 H 154/70 H Pulse Oximetry 99 96 98 06/22/18 16:16 06/22/18 20:00 Temperature Pulse Rate 89 90 Respiratory Rate 18 18 Blood Pressure Pulse Oximetry 99 Intake & Output 06/22/18 06/22/18 06/23/18 06:59 18:59 06:59 Intake Total 520 / 520 1820 / 1820 Output Total 950 / 950 Balance -430 / -430 1820 / 1820 Weight 73.5 kg Intake: IV 100 / 100 1100 / 1100 NS Inj 1,000 ML @ 75 mls/hr IV. 1000 / 1000 CONT .[id number] [facility] Rx#:[id number] Rocephin Inj 2,000 MG In NS Inj 100 / 100 100 / 100 100 ML @ 200 mls/hr IV.SIG Q24H [facility] Rx#:[id number] Oral 420 / 420 720 / 720 Output: Urine 950 / 950 Other: # Voids 6 Date of Last Bowel Movement 06/21/18 # Bowel Movements 1 GENERAL: Elderly Wf, NAD SKIN: Warm and dry. HEAD: Normocephalic. EYES: No scleral icterus. No injection or drainage. NECK: Supple, trachea midline. No JVD or lymphadenopathy. CARDIOVASCULAR: Regular rate and rhythm without murmurs, gallops, or rubs. RESPIRATORY: Breath sounds equal bilaterally. No accessory muscle use. GASTROINTESTINAL: Abdomen soft, non-tender, nondistended. MUSCULOSKELETAL: No cyanosis, or edema. BACK: Nontender without obvious deformity. No CVA tenderness. - Urinary Catheter Management Indwelling Urethral Catheter Cath placed during this visit: yes, but has since been removed by the nurse Reason for continuing: Not indwelling catheter Insertion date: 06/16/18 Removal date: 06/21/18 Removal time: 13:50 Assessment and Plan - Plan IMPRESSION: 1. Respiratory failure, status post extubation. 2. Chronic obstructive pulmonary disease. 3. Nicotine use. 4. Hypertension. 5. Syncopal episode. 6. Laceration on the forehead. PLAN: Aerosol nebs IV Solumedrol Supplement 02 PFT DC Plans underway
[2018-06-23] MEDS: Sod Chloride 0.9% Inj 1,000 ML IV.CONT SCH ×2 (03:20→14:00)
[2018-06-23] MEDS: Oral Hygiene Kit OROPHARYNG SCH ×3 (04:23→17:02)
[2018-06-23] MEDS: Insulin NovoLOG Aspart Correctional Sugar Inj SQ SCH ×3 (05:02→18:00)
[2018-06-23] MEDS: Docusate Sodium Liq 100 MG/10 ML UDC NG/OG SCH ×2 (09:35→20:13)
[2018-06-23] MEDS: Chlorhexidine 0.12% Oral Kit 15 ML UDC OROPHARYNG SCH ×2 (09:35→19:13)
[2018-06-23] MEDS: Heparin - SQ 10,000 UNITS/ML Vial SQ SCH ×2 (09:35→20:12)
[2018-06-23] MEDS: Hypromellose 0.3% Opth Gel 10 GM Bottle EACH EYE SCH ×2 (09:36→20:14)
[2018-06-23] MEDS: MethylPREDNISolone Sod Succinate Inj 40 MG/ML Vial IV.PUSH SCH ×2 (09:36→20:12)
[2018-06-23] MEDS: Azithromycin 250 MG Tablet PO SCH (09:36)
--- NOTE | 2018-06-23 10:32 | P.PNIM ---
Subjective Interval history: f/u; respiratory failure looks better today. was slightly dizzy earlier today. sob is improving. no fever. d/w the RN. Physical Exam Vital signs: Vital Signs 06/22/18 12:00 06/22/18 16:00 06/22/18 16:16 Temperature 98.1 F 98.3 F Pulse Rate 82 87 89 Respiratory Rate 16 16 18 Blood Pressure 155/75 H 154/70 H Pulse Oximetry 96 98 06/22/18 20:00 06/23/18 00:00 06/23/18 00:14 Temperature 98.0 F 98.1 F Pulse Rate 80 80 77 Respiratory Rate 20 20 16 Blood Pressure 145/70 H 150/67 H Pulse Oximetry 96 97 06/23/18 04:00 06/23/18 05:10 06/23/18 07:34 Temperature 97.7 F Pulse Rate 78 78 71 Respiratory Rate 18 16 16 Blood Pressure 128/79 Pulse Oximetry 98 100 06/23/18 08:00 Temperature 98.4 F Pulse Rate 78 Respiratory Rate 17 Blood Pressure 148/65 H Pulse Oximetry 99 Intake & Output 06/22/18 06/23/18 06/23/18 18:59 06:59 18:59 Intake Total 1820 / 1820 1240 / 1240 Balance 1820 / 1820 1240 / 1240 Weight 70.8 kg Intake: IV 1100 / 1100 1000 / 1000 NS Inj 1,000 ML @ 75 mls/hr IV. 1000 / 1000 1000 / 1000 CONT .[id number] [facility] Rx#:[id number] Rocephin Inj 2,000 MG In NS Inj 100 / 100 100 ML @ 200 mls/hr IV.SIG Q24H [facility] Rx#:[id number] Oral 720 / 720 240 / 240 Other: # Voids 6 3 Date of Last Bowel Movement 06/22/18 06/22/18 # Bowel Movements 1 0 - Constitutional mild distress - Routine Respiratory Exam Present: diminished air movement (bilaterally- wheezing has improved.) - Routine Cardiovascular Exam Present: RRR - Routine Abdominal Exam Present: soft - Routine Extremities Exam Comments: no pedal edema. - Routine Neurological Exam Present: alert, oriented X3 - Urinary Catheter Management Indwelling Urethral Catheter Cath placed during this visit: yes, but has since been removed by the nurse Reason for continuing: Not indwelling catheter Insertion date: 06/16/18 Removal date: 06/21/18 Removal time: 13:50 Results - Labs CBC & Chem 7: 06/22/18 07:33 06/22/18 07:33 Laboratory Results - last 24 hr 06/22/18 06/22/18 06/23/18 11:58 17:03 03:19 POC Glucose 150 H 145 H 205 H - Procedures intubation/ extubation. Assessment and Plan - Plan Acute encephalopathy secondary to CO2 retention- resolved Syncopal event CT brain on admission revealed no acute intracranial findings 06/14 = Carotid ultrasound without significant stenosis = Negative cervical CT. = Extubated 06/19. Suspect syncopal event, as well as encephalopathy was secondary to COPD exacerbation/hypercapnia. COPD exacerbation-improving slowly. Suspected pulmonary hypertension = Status post respiratory failure. Extubated. Echocardiogram 06/15 with EF 50%, aortic valve sclerosis, pulmonary artery pressure estimated at 53 mmHg. = Continue azithromycin, ceftriaxone, IV steroids, nebs.. = Urine culture heavy growth of normal cindy =Consulted pulmonology. Appreciate assistance. -patient is on home oxygen. -Hypertension. = As needed meds ordered. Continue to monitor. Sinus tachycardia = Reactive. Continue to monitor. -Steroid-induced hyperglycemia = Secondary to IV steroids. -Normocytic anemia. will monitor. //Prophylax -GI -lansoprazole -DVT -SCDs/heparin subcu Discharge Planning: dc home with [facility] tomorrow-if stable. rehab was d/w the patient but she wants to go home. patient is on home oxygen.
--- NOTE | 2018-06-23 14:02 | P.DIET ---
Nutritional Evaluation Type of nutrition evaluation: follow-up Nutrition consult regarding: Tube Feeding (Previous TF) Objective - Diagnosis Syncope - Objective % IBW: 135 (WGH=868#) Body Weight Used for Calculations: IBW (52.3kg) Energy Needs - Lower Range (kCal/kg): 25 Energy Needs - Upper Range (kCal/kg): 30 Lower Limit kCal/kg (kCals): 1,308 Upper Limit kCal/kg (kCals): 1,569 Lower Limit Protein Factor (Grams per Kg): 1.1 Upper Limit Protein Factor (Grams per Kg): 1.3 Lower Protein Needs (Protein): 58 Upper Protein Needs (Protein): 68 Dietitian Reviewed in Medical Record: Current diet, Curent medications, Intake & Output, Labs, Medical history Diet Order: Regular Oral Diet Intake Amount: Good 75-90% Assessment Assessment: Pt extubated 06/19. She is on a Regular diet and is eating 50% and greater of all meals. Relatively stable wt throughout admission. Pt is not currently at high nutritional risk. Consult RD if needed.
--- NOTE | 2018-06-23 18:47 | P.PNPL ---
Subjective Interval history: 68 YOWF with COPD Exac, Syncopy Feels much better On NC Denies sob or CP Good appetite No new complaint Physical Exam Vital signs: Vital Signs 06/22/18 20:00 06/23/18 00:00 06/23/18 00:14 Temperature 98.0 F 98.1 F Pulse Rate 80 80 77 Respiratory Rate 20 20 16 Blood Pressure 145/70 H 150/67 H Pulse Oximetry 96 97 06/23/18 04:00 06/23/18 05:10 06/23/18 07:34 Temperature 97.7 F Pulse Rate 78 78 71 Respiratory Rate 18 16 16 Blood Pressure 128/79 Pulse Oximetry 98 100 06/23/18 08:00 06/23/18 11:44 06/23/18 12:00 Temperature 98.4 F 97.6 F Pulse Rate 78 71 83 Respiratory Rate 17 16 18 Blood Pressure 148/65 H 144/70 H Pulse Oximetry 99 100 06/23/18 16:00 06/23/18 16:22 Temperature 98.3 F Pulse Rate 87 82 Respiratory Rate 18 18 Blood Pressure 151/68 H Pulse Oximetry 97 Intake & Output 06/22/18 06/23/18 06/23/18 18:59 06:59 18:59 Intake Total 1820 / 1820 1240 / 1240 700 / 700 Output Total 800 / 800 Balance 1820 / 1820 1240 / 1240 -100 / -100 Weight 70.8 kg Intake: IV 1100 / 1100 1000 / 1000 100 / 100 NS Inj 1,000 ML @ 75 mls/hr IV. 1000 / 1000 1000 / 1000 CONT .[id number] [facility] Rx#:[id number] Rocephin Inj 2,000 MG In NS Inj 100 / 100 100 / 100 100 ML @ 200 mls/hr IV.SIG Q24H [facility] Rx#:[id number] Oral 720 / 720 240 / 240 600 / 600 Output: Urine 800 / 800 Other: # Voids 6 3 Date of Last Bowel Movement 06/22/18 06/22/18 # Bowel Movements 1 0 0 GENERAL: Elderly WF,NAD SKIN: Warm and dry. HEAD: Normocephalic. EYES: No scleral icterus. No injection or drainage. NECK: Supple, trachea midline. No JVD or lymphadenopathy. CARDIOVASCULAR: Regular rate and rhythm without murmurs, gallops, or rubs. RESPIRATORY: Breath sounds equal bilaterally. No accessory muscle use. GASTROINTESTINAL: Abdomen soft, non-tender, nondistended. MUSCULOSKELETAL: No cyanosis, or edema. BACK: Nontender without obvious deformity. No CVA tenderness. - Urinary Catheter Management Indwelling Urethral Catheter Cath placed during this visit: yes, but has since been removed by the nurse Reason for continuing: Not indwelling catheter Insertion date: 06/16/18 Removal date: 06/21/18 Removal time: 13:50 Assessment and Plan - Plan IMPRESSION: 1. Respiratory failure, status post extubation. 2. Chronic obstructive pulmonary disease. 3. Nicotine use. 4. Hypertension. 5. Syncopal episode. 6. Laceration on the forehead. PLAN: Aerosol nebs Supplement 02 PFT Change to PO Steroids OOB and ambulate
[2018-06-24] MEDS: Insulin NovoLOG Aspart Correctional Sugar Inj SQ SCH ×2 (00:21→05:38)
[2018-06-24] MEDS ORDERED: Melatonin 5 MG Tablet PO PRN (01:25)
[2018-06-24] MEDS: Oral Hygiene Kit OROPHARYNG SCH ×2 (01:29→05:38)
[2018-06-24] MEDS: Sod Chloride 0.9% Inj 1,000 ML IV.CONT SCH (05:38)
[2018-06-24] MEDS: Azithromycin 250 MG Tablet PO SCH (08:13)
[2018-06-24] MEDS: Chlorhexidine 0.12% Oral Kit 15 ML UDC OROPHARYNG SCH (08:13)
[2018-06-24] MEDS: Docusate Sodium Liq 100 MG/10 ML UDC NG/OG SCH (08:14)
[2018-06-24] MEDS: Heparin - SQ 10,000 UNITS/ML Vial SQ SCH (08:14)
[2018-06-24] MEDS: MethylPREDNISolone Sod Succinate Inj 40 MG/ML Vial IV.PUSH SCH (08:14)
[2018-06-24] MEDS: Hypromellose 0.3% Opth Gel 10 GM Bottle EACH EYE SCH (08:15)
--- NOTE | 2018-06-24 08:34 | P.PNIM ---
Subjective Interval history: f/u; COPD exacerbation in no acute distress. says that her sob is better. no fever. no new complaints. hoping that she would go home today. d/w the RN. Physical Exam Vital signs: Vital Signs 06/23/18 11:44 06/23/18 12:00 06/23/18 16:00 Temperature 97.6 F 98.3 F Pulse Rate 71 83 87 Respiratory Rate 16 18 18 Blood Pressure 144/70 H 151/68 H Pulse Oximetry 100 97 06/23/18 16:22 06/23/18 19:12 06/23/18 19:13 Temperature Pulse Rate 82 71 Respiratory Rate 18 18 Blood Pressure Pulse Oximetry 97 97 06/23/18 20:00 06/23/18 23:57 06/24/18 00:00 Temperature 98.0 F 98.2 F Pulse Rate 79 83 85 Respiratory Rate 18 20 18 Blood Pressure 94/61 L 156/69 H Pulse Oximetry 99 96 06/24/18 04:00 06/24/18 04:43 06/24/18 08:11 Temperature 97.4 F L Pulse Rate 82 79 74 Respiratory Rate 18 20 13 Blood Pressure 143/62 H Pulse Oximetry 100 99 Intake & Output 06/23/18 06/24/18 06/24/18 18:59 06:59 18:59 Intake Total 700 / 700 120 / 120 Output Total 800 / 800 350 / 350 Balance -100 / -100 -230 / -230 Weight 72.4 kg Intake: IV 100 / 100 Rocephin Inj 2,000 MG In NS Inj 100 / 100 100 ML @ 200 mls/hr IV.SIG Q24H [facility] Rx#:[id number] Oral 600 / 600 120 / 120 Output: Urine 800 / 800 350 / 350 Other: Date of Last Bowel Movement 06/22/18 # Bowel Movements 0 - Constitutional no acute distress - Routine Respiratory Exam Present: diminished air movement (bilaterally.) - Routine Cardiovascular Exam Present: RRR - Routine Abdominal Exam Present: soft - Routine Extremities Exam Comments: no pedal edema. - Routine Neurological Exam Present: alert, oriented X3 - Urinary Catheter Management Indwelling Urethral Catheter Cath placed during this visit: yes, but has since been removed by the nurse Reason for continuing: Not indwelling catheter Insertion date: 06/16/18 Removal date: 06/21/18 Removal time: 13:50 Results - Labs CBC & Chem 7: 06/22/18 07:33 06/22/18 07:33 Laboratory Results - last 24 hr 06/23/18 06/23/18 06/24/18 12:48 17:02 00:19 POC Glucose 139 H 193 H 158 H 06/24/18 06/24/18 05:36 07:25 POC Glucose 132 H 125 H - Procedures intubation/ extubation. Assessment and Plan - Plan Acute encephalopathy secondary to CO2 retention- resolved Syncopal event CT brain on admission revealed no acute intracranial findings 06/14 = Carotid ultrasound without significant stenosis = Negative cervical CT. = Extubated 06/19. Suspect syncopal event, as well as encephalopathy was secondary to COPD exacerbation/hypercapnia. COPD exacerbation-improving slowly. Suspected pulmonary hypertension = Status post respiratory failure. Extubated. Echocardiogram 06/15 with EF 50%, aortic valve sclerosis, pulmonary artery pressure estimated at 53 mmHg. -treated with IV antibiotics- will switch to po steroids. = Urine culture heavy growth of normal cindy =Consulted pulmonology. Appreciate assistance. -patient is on home oxygen. -Hypertension. = As needed meds ordered. Continue to monitor. Sinus tachycardia = Reactive. Continue to monitor. -Steroid-induced hyperglycemia = Secondary to IV steroids. -Normocytic anemia. will monitor. //Prophylax -GI -lansoprazole -DVT -SCDs/heparin subcu Discharge Planning: dc home with [facility] today. rehab was d/w the patient but she wants to go home. patient is on home oxygen. see med list. d/w the patient and previously with her / case management. time spent 35 min.
--- NOTE | 2018-06-24 08:39 | P.DS ---
Date of admission: 06/15/18 10:14 Primary care physician: UNKNOWN Brief History from admission: Mrs. Lara is a 68 year old she is here secondary to having a syncopal episode at home. This episode occurred after she got off the couch, she fell right in front of the couch. She hit her head during this episode. CT shows no bleeding. 6 cm laceration was present and was repaired in the ER. DS: Medications - Discharge Medications Prescriptions: albuterol sulfate 1.25 mg INHALATION Q4H PRN 30 Days ml PRN Reason: sob albuterol sulfate [ProAir RespiClick] 1 puff INHALATION Q4-6H PRN #1 ea PRN Reason: sob fluticasone-salmeterol [Advair Diskus] 1 puff INHALATION Q12H #1 ea DS: Summary Hospital Course: patient was admitted with syncope episode and respiratory failure. CT brain negative and carotid doppler with no significant stenosis. she's s/p intubation / extubation. she was started on IV antibiotics and IV steroid. she was then transferred from ICU to medical floor after her condition stabilized. she remained stable on three liters of oxygen via N/C which she uses at home. she was seen by pulmonary during this admission.rehab was offered but the patient declined; she will be discharged home with [facility]. - Time Spent with Patient Total time spent providing and/or coordinating discharge services: Greater than 30 minutes (35 min.) - Quality: VTE Deep Vein Thrombosis/Pulmonary Embolism Present on Admission: No Exam Vital signs: Vital Signs 06/23/18 11:44 06/23/18 12:00 06/23/18 16:00 Temperature 97.6 F 98.3 F Pulse Rate 71 83 87 Respiratory Rate 16 18 18 Blood Pressure 144/70 H 151/68 H Pulse Oximetry 100 97 06/23/18 16:22 06/23/18 19:12 06/23/18 19:13 Temperature Pulse Rate 82 71 Respiratory Rate 18 18 Blood Pressure Pulse Oximetry 97 97 06/23/18 20:00 06/23/18 23:57 06/24/18 00:00 Temperature 98.0 F 98.2 F Pulse Rate 79 83 85 Respiratory Rate 18 20 18 Blood Pressure 94/61 L 156/69 H Pulse Oximetry 99 96 06/24/18 04:00 06/24/18 04:43 06/24/18 08:11 Temperature 97.4 F L Pulse Rate 82 79 74 Respiratory Rate 18 20 13 Blood Pressure 143/62 H Pulse Oximetry 100 99 Intake & Output 06/23/18 06/24/18 06/24/18 18:59 06:59 18:59 Intake Total 700 / 700 120 / 120 Output Total 800 / 800 350 / 350 Balance -100 / -100 -230 / -230 Weight 72.4 kg Intake: IV 100 / 100 Rocephin Inj 2,000 MG In NS Inj 100 / 100 100 ML @ 200 mls/hr IV.SIG Q24H [facility] Rx#:[id number] Oral 600 / 600 120 / 120 Output: Urine 800 / 800 350 / 350 Other: Date of Last Bowel Movement 06/22/18 # Bowel Movements 0 - Constitutional no acute distress - Routine Respiratory Exam Present: diminished air movement (bilaterally.) - Routine Cardiovascular Exam Present: RRR - Routine Abdominal Exam Present: soft - Routine Extremities Exam Comments: no pedal edema. - Routine Skin Exam Present: wounds (s/p laceration repair on the forehead.) - Routine Neurological Exam Present: alert, oriented X3 Results Procedures completed during hospitalization: intubation/ extubation. Labs on day of discharge: Labs from last 24 hours 06/24/18 06/24/18 06/24/18 07:25 05:36 00:19 POC Glucose 125 H 132 H 158 H 06/23/18 06/23/18 17:02 12:48 POC Glucose 193 H 139 H - Impressions ITS Impressions Cervical Spine CT 06/14/18 11:31 CONCLUSION: 1. Multilevel degenerative changes. 2. No fracture or subluxation Head CT 06/14/18 11:31 CONCLUSION: 1. Nonspecific white matter changes. 2. No acute intracranial abnormality. . Carotid Doppler Study 06/15/18 00:00 CONCLUSION: Study was terminated at the patient's request. Mild plaque seen of the right carotid bifurcation. No other meaningful findings were obtained. Chest X-Ray 06/20/18 00:00 CONCLUSION: Stable chest. Parenchyma similar compared to previous. Patient has been extubated. Discharge Plan - Discharge Disposition Patient Disposition: W/Home Health Service - Discharge Condition Condition: Stable - Physicians Team Primary Care Provider: UNKNOWN, Attending Provider: Corrine Bravo Other Providers: Sol Horton ; Reece Louie MD ; Edvin Jimenez MD
--- NOTE | 2018-06-24 13:25 | P.PNPL ---
Subjective Interval history: 68 YOWF with COPD Exac, Syncopy Feels much better On NC Denies sob or CP Good appetite No new complaint Anxious to go home Physical Exam Vital signs: Vital Signs 06/23/18 16:00 06/23/18 16:22 06/23/18 19:12 Temperature 98.3 F Pulse Rate 87 82 71 Respiratory Rate 18 18 18 Blood Pressure 151/68 H Pulse Oximetry 97 97 06/23/18 19:13 06/23/18 20:00 06/23/18 23:57 Temperature 98.0 F Pulse Rate 79 83 Respiratory Rate 18 20 Blood Pressure 94/61 L Pulse Oximetry 97 99 06/24/18 00:00 06/24/18 04:00 06/24/18 04:43 Temperature 98.2 F 97.4 F L Pulse Rate 85 82 79 Respiratory Rate 18 18 20 Blood Pressure 156/69 H 143/62 H Pulse Oximetry 96 100 06/24/18 08:00 06/24/18 08:11 Temperature 97.9 F Pulse Rate 77 74 Respiratory Rate 19 13 Blood Pressure 140/65 Pulse Oximetry 100 99 Intake & Output 06/23/18 06/24/18 06/24/18 18:59 06:59 18:59 Intake Total 700 / 700 120 / 120 Output Total 800 / 800 350 / 350 Balance -100 / -100 -230 / -230 Weight 72.4 kg Intake: IV 100 / 100 Rocephin Inj 2,000 MG In NS Inj 100 / 100 100 ML @ 200 mls/hr IV.SIG Q24H JAMAL Rx#:[id number] Oral 600 / 600 120 / 120 Output: Urine 800 / 800 350 / 350 Other: Date of Last Bowel Movement 06/22/18 06/22/18 # Bowel Movements 0 GENERAL: Elderly WF,NAD SKIN: Warm and dry. HEAD: Normocephalic. EYES: No scleral icterus. No injection or drainage. NECK: Supple, trachea midline. No JVD or lymphadenopathy. CARDIOVASCULAR: Regular rate and rhythm without murmurs, gallops, or rubs. RESPIRATORY: Breath sounds equal bilaterally. No accessory muscle use. GASTROINTESTINAL: Abdomen soft, non-tender, nondistended. MUSCULOSKELETAL: No cyanosis, or edema. BACK: Nontender without obvious deformity. No CVA tenderness. - Urinary Catheter Management Indwelling Urethral Catheter Cath placed during this visit: yes, but has since been removed by the nurse Reason for continuing: Not indwelling catheter Insertion date: 06/16/18 Removal date: 06/21/18 Removal time: 13:50 Assessment and Plan - Plan IMPRESSION: 1. Respiratory failure, status post extubation. 2. Chronic obstructive pulmonary disease. 3. Nicotine use. 4. Hypertension. 5. Syncopal episode. 6. Laceration on the forehead. PLAN: Aerosol nebs Supplement 02 PFT PO Steroids OOB and ambulate DC Plans for home Will FU in office
== END 2018-06-24 10:15 | disposition home health service (06) ==
LOC: NEPE 11:16 → NEDA 11:16 → NEPHCDU 17:46 → HIMC 06-16 14:05 → N04 06-21 14:23
PROVIDERS: ADMIT Internal Medicine; ATTEND Internal Medicine

== ENCOUNTER 2018-06-24 14:01 | Inpatient (IN) ==
--- NOTE | 2018-06-24 17:36 | ED ---
HPI General Chief complaint: Weakness Stated complaint: Medical Time Seen by Provider: 06/24/18 17:22 History of Present Illness HPI Narrative: The patient is a 68-year-old female with a history of COPD who presents for evaluation of bilateral leg weakness. The patient was discharged earlier this morning from [facility] where she was admitted for an extended period of time due to a COPD exacerbation. When she arrived home earlier this morning she began to get out of her car and noticed difficulty using both of her legs to ambulate into her house. She states that she required the help of 2 other people to help get her into the house. Throughout the day she continued to feel very weak in her legs and had difficulty getting up from the chair. During her recent admission the patient agreed to be discharged with home health care as opposed to going to rehab. The patient now states that she regrets that prefers to go to a rehab facility to improve the strength of her legs. She is normally on 3 L of oxygen at home. She denies any shortness of breath, dizziness, headache, cough, chest pain, or slurred speech. Related Data Home Medications Medication Instructions Recorded Confirmed furosemide [Lasix] 20 mg PO DAILY 06/14/18 06/24/18 nebulizers 06/15/18 06/24/18 Previous Rx's Medication Instructions Recorded albuterol sulfate 1.25 mg INHALATION Q4H PRN 30 Days 06/23/18 ml albuterol sulfate [ProAir 1 puff INHALATION Q4-6H PRN #1 ea 06/23/18 RespiClick] fluticasone-salmeterol [Advair 1 puff INHALATION Q12H #1 ea 06/23/18 Diskus] pantoprazole [Protonix] 20 mg PO DAILY #30 tab 06/24/18 prednisone 10 mg PO DIRECTED 30 Days #30 06/24/18 tab Allergies Allergy/AdvReac Type Severity Reaction Status Date / Time latex Allergy Severe RASH/ITCH Verified 06/24/18 14:21 Review of Systems Constitutional Denies chills and Denies fever(s) Eyes Denies blurry vision and Denies tunnel vision ENT Denies dizziness and Denies sore throat Cardiovascular Denies chest pain and Denies dyspnea Respiratory Denies cough and Denies wheezing Gastrointestinal Denies cramping and Denies diarrhea Genitourinary Denies hematuria and Denies dysuria Musculoskeletal Denies myalgias, Denies arthralgias and Reports muscle weakness (Legs bilaterally ) Integumentary/Breasts Denies non-healing lesions and Denies rash Neurologic Denies focal weakness and Denies numbness Psychiatric Denies behavioral changes and Denies confusion Endocrine Denies fatigue and Denies polyuria Hematologic/Lymphatic Denies easy bruising and Denies lymphadenopathy [facility] Medical History Medical History Hypercholesteremia (Acute) COPD (chronic obstructive pulmonary disease) (Acute) Chronic steroid use (Acute) History of ovarian cancer (Acute) Left cataract (Acute) Surgical History Surgical History History of lumpectomy of left breast (Acute) History of total abdominal hysterectomy (Acute) Family History Family History Other Arthritis Family history of uterine cancer Maternal family history of emphysema Social History Social History Substance History: No History of Abuse Second Hand Smoke Exposure: No Smoking Status: Former smoker Tobacco Type: Cigarettes Number of Pack-Years (if former smoker): 40 How Often Do You Have a Drink Containing Alcohol: Monthly or less Recent Travel in [facility] within the Last 8 Weeks: No Recent Out of Country Travel within the Last 8 Weeks: No Immunization History Tetanus Immunization: Unsure Hx Influenza Vaccine This Season: Yes Exam Narrative Exam Narrative: GENERAL: Well-developed and well-nourished female appearing in no acute respiratory distress. SKIN: Focused skin assessment warm/dry. HEAD: Atraumatic. Normocephalic. EYES: Pupils equal and round. No scleral icterus. No injection or drainage. ENT: No nasal bleeding or discharge. Mucous membranes pink and moist. NECK: Trachea midline. No JVD. CARDIOVASCULAR: Regular rate and rhythm. No murmur appreciated. RESPIRATORY: No accessory muscle use. Diminished breath sounds with no rhonchi , wheezing, or crackles. GASTROINTESTINAL: Abdomen soft, non-tender, nondistended. Hepatic and splenic margins not palpable. MUSCULOSKELETAL: No obvious deformities. No clubbing. No cyanosis. 2+ pitting edema bilaterally. 4/5 strength in lower extremities bilaterally. Upper extremities have 5/5 strength. NEUROLOGICAL: Awake and alert. No obvious cranial nerve deficits. Motor grossly within normal limits. Normal speech. PSYCHIATRIC: Appropriate mood and affect; insight and judgment normal. Course Initial Documented Vital Signs Temperature 98.6 F 06/24/18 14:09 Pulse Rate 89 06/24/18 14:09 Respiratory Rate 18 06/24/18 14:09 Blood Pressure 122/68 06/24/18 14:09 Pulse Oximetry 91 L 06/24/18 14:09 Last Documented Vital Signs Temperature 98.6 F 06/24/18 14:09 Pulse Rate 79 06/24/18 18:21 Respiratory Rate 18 06/24/18 18:21 Blood Pressure 147/85 H 06/24/18 18:21 Pulse Oximetry 99 06/24/18 18:21 Medical Decision Making MDM Narrative Medical decision making narrative: 60-year-old female with a history of COPD who was recently discharged from the hospital for COPD exacerbation. She presents for evaluation of bilateral leg weakness that started after her discharge earlier this morning. She describes it as being so fatigued that she is unable to ambulate from the car to the house. She reported the emergency department because she wishes to go to a rehab facility. She originally had a plan following her admission for home health care but is now changed her mind. She will be admitted for observation while case management finds a rehab facility placement. Medical Screen Exam Complete: Yes Emergency Medical Condition: Yes Differential Diagnosis Differential Diagnosis: Muscle fatigue, stroke, peripheral neuropathy, rhabdomyolysis, dehydration Discharge Plan Discharge Disposition Patient Disposition: 30 Still Patient Discharge Details Diagnosis: COPD (chronic obstructive pulmonary disease), Weakness Physicians Team ED Provider: Joselo Mason Primary Care Provider: UNKNOWN, Attending Provider: Corrine Bravo Discharge Interventions Interventions: Vital Signs Last Done: 06/24/18 18:21 Status ED Status: Admitted Observation Patient
[2018-06-24] MEDS ORDERED: Acetaminophen 325 MG Tablet PO PRN (19:19)
[2018-06-24] MEDS ORDERED: Bisacodyl 10 MG Supp RECTAL PRN (19:19)
[2018-06-24] MEDS ORDERED: Temazepam 15 MG Capsule PO PRN (20:00)
--- NOTE | 2018-06-24 20:04 | P.HPIM ---
History of Present Illness Primary Care Physician: UNKNOWN History of Present Illness: This is a 68-year-old female with a PMH of HTN, Hyperlipidemia, h/o Ovarian CA and COPD who presented to the ER with complaints of bilateral lower extremity weakness. Pt was discharged earlier today after being admitted from 06/15- for Syncope, COPD and Generalized Weakness w/ subsequent respiratory failure requiring intubation/extubation, pt was offered Rehab at the time of discharge, however she declined and was sent home w/ [facility]. States she has had persistent weakness since being discharged earlier today, "legs gave out". Denies syncope or chest pain. Requesting Rehab at this time. Also w/ c/o SOB and wheezing. On arrival, BP 122/68, HR 89, O2 sat 91% on 3L NC, Afebrile. - Diagnosis (1) Weakness (2) Gait instability (3) COPD (chronic obstructive pulmonary disease) Review of Systems PAST FAMILY HISTORY: Reviewed. No h/o DM or CAD All other systems reviewed negative except as stated in HPI [facility] - History History Provided By: Patient - Medical History Medical History: Medical History (Last Updated 06/24/18 @ 16:59 by Carley Llanes) Hypercholesteremia COPD (chronic obstructive pulmonary disease) Chronic steroid use History of ovarian cancer Left cataract - Surgical History Surgical History: Surgical History (Last Updated 06/24/18 @ 16:59 by Carley Llanes) History of lumpectomy of left breast History of total abdominal hysterectomy - Family History Family History: Family History (Last Updated 06/16/18 @ 16:33 by Reece Louie MD) Other Arthritis Family history of uterine cancer Maternal family history of emphysema - Tobacco History Second Hand Smoke Exposure: No Tobacco Use In Past 30 Days: No Smoking Status: Former smoker Tobacco Type: Cigarettes Number of Pack Years (if former smoker): 40 - Alcohol History How Often Do You Have a Drink Containing Alcohol: Monthly or less - Substance Use History Substance History: No History of Abuse - Travel History Recent Travel in the [place] Within the Last 8 Weeks: No Recent Travel Out of the Country Within the Last 8 Weeks: No - Immunization History Tetanus Immunization: Unsure Hx Influenza Vaccine This Season: Yes Medications and Allergies Active Medications: Active Medications Acetaminophen (Tylenol) 650 mg PO Q4H PRN PRN Reason: Temp > 100.4 Al Hydroxide/Mg Hydroxide (Milk Of Magnesia Liq) 30 ml PO Q12H PRN PRN Reason: Mild Constipation Albuterol (Duoneb Neb (Prn)) 1 ampul NEB Q4HR NEB PRN PRN Reason: sob Bisacodyl (Dulcolax Supp) 10 mg RECTAL DAILY PRN PRN Reason: SEVERE CONSITIPATION Budesonide/Formoterol Fumarate (Symbicort 80/4.5 Mcg Inh) 2 puff INH Q12H JAMAL Furosemide (Lasix) 20 mg PO DAILY JAMAL Lactulose (Lactulose Liq) 30 ml PO DAILY PRN PRN Reason: SEVERE CONSITIPATION Ondansetron HCl (Zofran Inj) 4 mg IV.PUSH Q6H PRN PRN Reason: NAUSEA OR VOMITING Pantoprazole Sodium (Protonix) 20 mg PO DAILY JAMAL Prednisone (Deltasone) 40 mg PO DAILY JAMAL Senna/Docusate Sodium (Angelina-Colace) 1 tab PO BID JAMAL Sennosides (Senokot) 17.2 mg PO Q12H PRN PRN Reason: Moderate Constipation Temazepam (Restoril) 15 mg PO HS PRN PRN Reason: INSOMNIA Allergies Allergy/AdvReac Type Severity Reaction Status Date / Time latex Allergy Severe RASH/ITCH Verified 06/24/18 14:21 Home Medications Medication Instructions Recorded Confirmed Type furosemide [Lasix] 20 mg PO DAILY 06/14/18 06/24/18 History nebulizers 06/15/18 06/24/18 History Exam Vital signs: Vital Signs 06/24/18 14:09 06/24/18 14:21 06/24/18 18:21 Temperature 98.6 F Pulse Rate 89 90 79 Respiratory Rate 18 18 18 Blood Pressure 122/68 145/86 H 147/85 H Pulse Oximetry 91 L 98 99 Intake & Output 06/24/18 06/24/18 06/25/18 06:59 18:59 06:59 Weight 73.028 kg Narrative: PE: GENERAL: Middle-aged white female in no acute distress. Dyspnea with speech HEENT: PERRLA, EOMI. No scleral icterus or conjunctival pallor. No lid lag or facial droop. CARDIOVASCULAR: Regular rate and rhythm. No obvious murmurs to auscultation. No chest tenderness to palpation. RESPIRATORY: No obvious rhonchi, occasional wheezing. Decreased breath sounds throughout GASTROINTESTINAL: Abdomen soft, non-tender, nondistended. BS normal. MUSCULOSKELETAL: Extremities without clubbing, cyanosis, or edema. No obvious deformities. NEUROLOGICAL: Awake, alert and oriented x4. No focal neurologic deficits. Moving both upper and lower extremities spontaneously. Caprini VTE Risk Assessment Caprini VTE Risk Assessment: No/Low Risk (score <= 1) Caprini Risk Assessment Model: Point Value = 1 Point Value = 2 Point Value = 3 Point Value = 5 Age 41-60 Minor surgery BMI > 25 kg/m2 Swollen legs Varicose veins or History of unexplained or recurrent spontaneous Oral contraceptives or hormone replacement Sepsis (< 1 month) Serious lung disease, including pneumonia (< 1 month) Abnormal pulmonary function Acute myocardial infarction Congestive heart failure (< 1 month) History of inflammatory bowel disease Medical patient at bed rest Age 61-74 Arthroscopic surgery Major open surgery (> 45 min) Laparoscopic surgery (> 45 min) Malignancy Confined to bed (> 72 hours) Immobilizing plaster cast Central venous access Age >= 75 History of VTE Family history of VTE Factor V Leiden Prothrombin [id number] Lupus anticoagulant Anticardiolipin antibodies Elevated serum homocysteine Heparin-induced thrombocytopenia Other congenital or acquired thrombophilia Stroke (< 1 month) Elective arthroplasty Hip, pelvis, or leg fracture Acute spinal cord injury (< 1 month) Prophylaxis Regimen: Total Risk Factor Score Risk Level Prophylaxis Regimen 0-1 Low Early ambulation 2 Moderate Order ONE of the following: *Sequential Compression Device (SCD) *Heparin 5000 units SQ BID 3-4 Higher Order ONE of the following medications: *Heparin 5000 units SQ TID *Enoxaparin/Lovenox 40 mg SQ daily (WT < 150 kg, CrCl > 30 mL/min) *Enoxaparin/Lovenox 30 mg SQ daily (WT < 150 kg, CrCl > 10-29 mL/min) *Enoxaparin/Lovenox 30 mg SQ BID (WT < 150 kg, CrCl > 30 mL/min) AND/OR *Sequential Compression Device (SCD) 5 or more Highest Order ONE of the following medications: *Heparin 5000 units SQ TID (Preferred with Epidurals) *Enoxaparin/Lovenox 40 mg SQ daily (WT < 150 kg, CrCl > 30 mL/min) *Enoxaparin/Lovenox 30 mg SQ daily (WT < 150 kg, CrCl > 10-29 mL/min) *Enoxaparin/Lovenox 30 mg SQ BID (WT < 150 kg, CrCl > 30 mL/min) AND *Sequential Compression Device (SCD) Assessment and Plan - Assessment (1) Weakness Code(s): R53.1 - Weakness Status: Acute (2) Gait instability Code(s): R26.81 - Unsteadiness on feet Status: Acute (3) COPD (chronic obstructive pulmonary disease) Code(s): J44.9 - Chronic obstructive pulmonary disease, unspecified Status: Acute - Plan A/P: 1. Weakness: reports bilateral lower extremity weakness, likely secondary to recent prolonged hospitalization complicated by respiratory failure w/ intubation/extubation and physical deconditioning. D/c'd home today, however declined Rehab at that time, now requesting re-eval for Rehab. PT for eval/tx, Consult Case Management for further evaluation. 2. Gait Instability: due to above, will consult PT for eval/tx, will likely require Inpt Rehab in light of recent admission. 3. COPD: Chronic Respiratory Failure w/ Acute Exacerbation. Moderate. O2 sat 91% on 3L on arrival, currently 98% on 3L, monitor O2. +wheezing on exam. Steroids, DuoNeb, Symbicort. 4. DVT Prophylaxis: SCD/Teds 5. Social work for d/c planning as needed 6. Case discussed w/ ER physician at length, labs/records/imaging reviewed by me (3) COPD (chronic obstructive pulmonary disease) Qualifiers: COPD type: unspecified COPD Qualified Code(s): J44.9 - Chronic obstructive pulmonary disease, unspecified
[2018-06-24] MEDS: Budesonide-Formoterol 80/4.5 MCG 6.9 GM Inhaler INH SCH (21:32)
[2018-06-24] MEDS: Senna/Docusate Sodium 8.6/50 MG Tablet PO SCH (21:33)
[2018-06-25] MEDS ORDERED: Furosemide 20 MG Tablet PO SCH (09:00)
[2018-06-25] MEDS ORDERED: predniSONE 20 MG Tablet PO ONE (09:00)
[2018-06-25] MEDS ORDERED: predniSONE 20 MG Tablet PO SCH (09:00)
[2018-06-25 09:24] LABS: ABG Base Excess 14.4 mmol/L (-2-2); ABG PCO2 90 mmHg (38-42); ABG PO2 69 mmHg (61-120)
--- NOTE | 2018-06-25 09:50 | P.CONCC ---
History of Present Illness Service: Critical care medicine Consult date: 06/25/18 Requesting Physician: Negrito Bautista Reason for Consult: Acute hypercapnic respiratory failure Primary Care Provider: UNKNOWN Chief Complaint: Shortness of breath History of Present Illness: 68-year-old female with past medical history of COPD on 3 L home O2, prior tobacco abuse, hypertension, hyperlipidemia, ovarian cancer who was recently admitted to [facility] 06/14-05/24 after she presented with syncope and acute COPD exacerbation that ultimately required intubation and mechanical ventilation from 06/16 through 06/19. Rehab placement was recommended, but patient refused rehab and therefore was discharged home with home health on 06/24/18, however once she got home she realized she was too weak for home care to be feasible. She presented again to the emergency department and was admitted to the hospitalist service for physical therapy evaluation. She had progressive shortness of breath and then lethargy. ABG was obtained which demonstrates acute acute and chronic hypercapnic respiratory failure with pH 7.29/PaCO2 of 90/PO2 of 69/bicarb 42 on 3 L nasal cannula. She does not wish to be intubated although it is unclear whether she would be agreeable to intubation if it was life or , limited in conversation due to severe respiratory distress. She states we should speak with her regarding goals of care. Review of Systems other (limited due to mental status) Constitutional: Denies chills, Denies fever(s) Ears, Nose, Mouth, and Throat: Denies tongue swelling Cardiovascular: Denies chest pain Respiratory: Reports shortness of breath, Reports wheezing, Denies coughing up blood Gastrointestinal: Denies abdominal pain Musculoskeletal: Reports abnormal walking Hematologic/Lymphatic: Reports easy bruising PMFSH - History History Provided By: Patient - Medical History Medical History: Medical History (Last Updated 06/24/18 @ 16:59 by Carley Llanes) Hypercholesteremia COPD (chronic obstructive pulmonary disease) Chronic steroid use History of ovarian cancer Left cataract - Surgical History Surgical History: Surgical History (Last Updated 06/24/18 @ 16:59 by Carley Llanes) History of lumpectomy of left breast History of total abdominal hysterectomy - Family History Family History: Family History (Last Updated 06/16/18 @ 16:33 by Reece Louie MD) Other Arthritis Family history of uterine cancer Maternal family history of emphysema - Tobacco History Second Hand Smoke Exposure: No () Tobacco Use In Past 30 Days: No Smoking Status: Unknown if ever smoked Tobacco Type: Cigarettes Number of Pack Years (if former smoker): 40 - Alcohol History How Often Do You Have a Drink Containing Alcohol: Never - Substance Use History Substance History: No History of Abuse - Travel History Recent Travel in the [place] Within the Last 8 Weeks: No Recent Travel Out of the Country Within the Last 8 Weeks: No - Immunization History Tetanus Immunization: Unsure Hx Influenza Vaccine This Season: Yes Medications and Allergies Active Medications: Active Medications Acetaminophen (Tylenol) 650 mg PO Q4H PRN PRN Reason: Temp > 100.4 Al Hydroxide/Mg Hydroxide (Milk Of Magnesia Liq) 30 ml PO Q12H PRN PRN Reason: Mild Constipation Albuterol (Duoneb Neb (Prn)) 1 ampul NEB Q4HR NEB PRN PRN Reason: sob Last Admin: 06/25/18 05:15 Dose: 1 ampul Bisacodyl (Dulcolax Supp) 10 mg RECTAL DAILY PRN PRN Reason: SEVERE CONSITIPATION Budesonide/Formoterol Fumarate (Symbicort 80/4.5 Mcg Inh) 2 puff INH Q12H [facility] Last Admin: 06/24/18 21:32 Dose: Not Given Furosemide (Lasix) 20 mg PO DAILY JAMAL Lactulose (Lactulose Liq) 30 ml PO DAILY PRN PRN Reason: SEVERE CONSITIPATION Ondansetron HCl (Zofran Inj) 4 mg IV.PUSH Q6H PRN PRN Reason: NAUSEA OR VOMITING Pantoprazole Sodium (Protonix) 20 mg PO DAILY [facility] Prednisone (Deltasone) 40 mg PO DAILY [facility] Senna/Docusate Sodium (Angelina-Colace) 1 tab PO BID [facility] Last Admin: 06/24/18 21:33 Dose: Not Given Sennosides (Senokot) 17.2 mg PO Q12H PRN PRN Reason: Moderate Constipation Temazepam (Restoril) 15 mg PO HS PRN PRN Reason: INSOMNIA Allergies Allergy/AdvReac Type Severity Reaction Status Date / Time latex Allergy Severe RASH/ITCH Verified 06/24/18 14:21 Home Medications Medication Instructions Recorded Confirmed Type furosemide [Lasix] 20 mg PO DAILY 06/14/18 06/24/18 History nebulizers 06/15/18 06/24/18 History Physical Exam Vital signs: Vital Signs 06/24/18 14:09 06/24/18 14:21 06/24/18 18:21 Temperature 98.6 F Pulse Rate 89 90 79 Respiratory Rate 18 18 18 Blood Pressure 122/68 145/86 H 147/85 H Pulse Oximetry 91 L 98 99 06/24/18 20:00 06/24/18 20:27 06/24/18 22:00 Temperature 98.0 F Pulse Rate 84 79 Respiratory Rate 22 18 Blood Pressure 139/63 Pulse Oximetry 97 95 06/25/18 04:00 06/25/18 05:16 06/25/18 08:00 Temperature 98.2 F 97.4 F L Pulse Rate 80 83 85 Respiratory Rate 19 28 H 28 H Blood Pressure 165/68 H 147/70 H Pulse Oximetry 99 99 06/25/18 08:45 Temperature Pulse Rate Respiratory Rate Blood Pressure Pulse Oximetry 99 Intake & Output 06/24/18 06/25/18 06/25/18 18:59 06:59 18:59 Weight 73.028 kg Other: # Voids 1 Narrative: GENERAL: Undernourished chronically ill-appearing female who is in apparent respiratory distress. SKIN: Warm and dry. Multiple ecchymoses along her right forearm. HEAD: Atraumatic. Normocephalic. EYES: Pupils equal and round, 2 mm and reactive. No scleral icterus. No injection or drainage. ENT: No nasal bleeding or discharge. Mucous membranes dry NECK: Trachea midline. No JVD. CARDIOVASCULAR: Regular rate and rhythm. No murmurs rubs or gallops. RESPIRATORY: tachypneic, Diminished breath sounds with poor air movement bilaterally. No rales or rhonchi. GASTROINTESTINAL: Abdomen soft, non-tender, nondistended. Bowel sounds present. MUSCULOSKELETAL: Extremities without clubbing, cyanosis. Slight bilat pedal edema NEUROLOGICAL: Lethargic but responds to questions, follows commands, strength 4+ /5 BLE, sensation intact. . No obvious cranial nerve deficits. Normal speech. Assessment and Plan - Assessment and Plan Plan: NEURO: Acute encephalopathy secondary to hypercapnia Generalized weakness and deconditioning Physical therapy consult. Case management consult for eventual rehab placement. RESP: Acute on chronic hypercapnic respiratory failure with chronic hypoxia Acute COPD exacerbation Check chest x-ray Bipap 15/5 titrate FIO2 for sat >89%. Intubate if needed. DuoNeb every 4 hours. Albuterol every 2 hours as needed. Solu-Medrol 60 mill grams IV every 6 hours. Hold prednisone 40 mg p.o. daily. Continue Symbicort 80/4.52 puffs inhaled twice daily. CV: Monitor hemodynamics Echo 10/19/11 ejection fraction 55-60% She appears dry. Will hold Lasix for now. GI: GERD N.p.o. for now until mental and respiratory status improved FEN/RENAL: Creatinine normal. Monitor creatinine and electrolytes. Purewick catheter while on BiPAP. ID: Afebrile. No leukocytosis. Monitor for signs and symptoms of infection. HEME: No acute hematologic issues ENDO: Monitor glucose AC/at bedtime while on steroids and use low-dose insulin sliding scale as indicated. PROPH: Protonix 20 mg p.o. daily for stress ulcer prophylaxis and history of GERD. Lovenox 40 mg subcu daily for DVT prophylaxis. ACCESS: Peripheral IV providing adequate access. FULL CODE Patient not fully capacitated for medical decision-making. She was not able to fully communicate her wishes and is lethargic secondary to hypercapnia. She indicated that we should discuss with her . He states that she is full code and would want intubation if needed. Patient is critically ill with acute hypercapnic respiratory failure in need of emergent placement on BiPAP to prevent further decompensation and . She remains at high risk for further deterioration and requiring intubation. She will remain in [facility]. Critical care time 40 minutes exclusive of separately billable procedures.
[2018-06-25] MEDS: Budesonide-Formoterol 80/4.5 MCG 6.9 GM Inhaler INH SCH ×2 (09:57→20:40)
[2018-06-25] MEDS: Senna/Docusate Sodium 8.6/50 MG Tablet PO SCH ×2 (09:58→20:41)
[2018-06-25] MEDS: Pantoprazole Sodium 20 MG DR Tablet PO SCH (09:58)
[2018-06-25] MEDS ORDERED: Dextrose 50% in Water 50 ML Vial IV.PUSH PRN (10:32)
--- NOTE | 2018-06-25 10:54 | XR ---
EXAM DATE: 06/25/2018 10:24 AM EDT AGE/SEX: 68 years / Female INDICATIONS: Respiratory disease. CLINICAL DATA: This is the patient's subsequent encounter. Patient reports that signs and symptoms h ave been present for 2 weeks and indicates a pain score of 0/10. MEDICAL/SURGICAL HISTORY: Chronic obstructive pulmonary disease. . Lung surgery. COMPARISON: [facility] [place], CHEST 1V SINGLE AP, 06/20/2018. . FINDINGS: Single AP view of the chest. The lungs are clear. Cardiomediastinal silhouette within norm al limits. No evidence of pleural effusion or pneumothorax. CONCLUSION: No acute cardiopulmonary disease identified. Electronically signed by: Oliver Pierre MD 06/25/2018 10:52 AM EDT
[2018-06-25] MEDS: MethylPREDNISolone Sod Succinate Inj 125 MG/2 ML Vial IV.PUSH SCH ×3 (12:10→23:52)
[2018-06-25] MEDS: Enoxaparin Inj 40 MG/0.4 ML Syringe SQ SCH (12:10)
[2018-06-25] MEDS: Insulin NovoLOG Aspart Correctional Sugar Inj SQ SCH ×3 (12:12→20:41)
[2018-06-25 15:19] LABS: ABG Base Excess 12.4 mmol/L (-2-2); ABG PCO2 64 mmHg (38-42); ABG PO2 73 mmHg (61-120)
[2018-06-26] MEDS: MethylPREDNISolone Sod Succinate Inj 125 MG/2 ML Vial IV.PUSH SCH ×4 (05:16→23:04)
[2018-06-26 06:11] LABS: Baso % (Auto) 0.1 % (0.0-2.0); Hematocrit 33.2 % (35.0-46.0); Hemoglobin 10.8 gm/dL (11.6-15.3); Lymph # (Auto) 0.4 th/mm3 (1.0-4.8); Lymph % (Auto) 4.8 % (9.0-44.0); Mean Corpuscular HGB Conc 32.5 % (32.0-36.0); Mean Corpuscular Hemoglobin 29.4 pg (27.0-34.0); Mean Corpuscular Volume 90.3 fL (80.0-100.0); Mean Platelet Volume 8.1 fL (7.0-11.0); Mono # (Auto) 0.2 th/mm3 (0.0-0.9); Mono % (Auto) 1.7 % (0.0-8.0); Neut # (Auto) 8.6 th/mm3 (1.8-7.7); Neut % (Auto) 93.4 % (16.0-70.0); Platelet Count 208 th/mm3 (150-450); Red Blood Count 3.68 mil/mm3 (4.00-5.30); Red Cell Distribution Width 14.4 % (11.6-17.2); White Blood Count 9.2 th/mm3 (4.0-11.0)
[2018-06-26 06:24] LABS: Albumin 2.5 g/dL (3.4-5.0); Anion Gap 11 meq/L (5-15); Aspartate Aminotransferase 15 U/L (15-37); Blood Urea Nitrogen 18 mg/dL (7-18); Carbon Dioxide 33.5 meq/L (21.0-32.0); Chloride 99 meq/L (98-107); Glomerular Filtration Rate Greater Than 89 mL/min (>89); Glucose,Random 93 mg/dL (74-106); Magnesium 1.9 mg/dL (1.5-2.5); Potassium 3.9 meq/L (3.5-5.1); Sodium 143 meq/L (136-145)
[2018-06-26 06:29] LABS: Alanine Aminotransferase 34 U/L (10-53); Alkaline Phosphatase 50 U/L (45-117); Total Protein 5.4 g/dL (6.4-8.2)
[2018-06-26] MEDS: Senna/Docusate Sodium 8.6/50 MG Tablet PO SCH ×2 (08:49→20:00)
[2018-06-26] MEDS: Insulin NovoLOG Aspart Correctional Sugar Inj SQ SCH ×4 (08:49→20:00)
[2018-06-26] MEDS: Pantoprazole Sodium 20 MG DR Tablet PO SCH (08:49)
[2018-06-26] MEDS: Budesonide-Formoterol 80/4.5 MCG 6.9 GM Inhaler INH SCH ×2 (11:44→20:00)
[2018-06-26] MEDS: Enoxaparin Inj 40 MG/0.4 ML Syringe SQ SCH (11:50)
--- NOTE | 2018-06-26 15:25 | P.PNCC ---
Subjective Subjective Remarks/Hospital Course: 68-year-old female with past medical history of COPD on 3 L home O2, prior tobacco abuse, hypertension, hyperlipidemia, ovarian cancer who was recently admitted to [facility] 06/14-05/24 after she presented with syncope and acute COPD exacerbation that ultimately required intubation and mechanical ventilation from 06/16 through 06/19. Rehab placement was recommended, but patient refused rehab and therefore was discharged home with home health on 06/24/18, however once she got home she realized she was too weak for home care to be feasible. She presented again to the emergency department and was admitted to the hospitalist service for physical therapy evaluation. She had progressive shortness of breath and then lethargy. ABG was obtained which demonstrates acute acute and chronic hypercapnic respiratory failure with pH 7.29/PaCO2 of 90/PO2 of 69/bicarb 42 on 3 L nasal cannula. She does not wish to be intubated although it is unclear whether she would be agreeable to intubation if it was life or , limited in conversation due to severe respiratory distress. She states we should speak with her regarding goals of care. Subjective: 06/26 Has been able to come off Bipap. Better air movement, still wheezing, Remains tachypneic. Using HFNC 20 L 30%. She desires full code. PT recommending acute rehab. Objective Vital Signs / I&O: Vital Signs 06/25/18 16:00 06/25/18 17:00 06/25/18 17:30 Temperature 98.5 F Pulse Rate 71 76 Respiratory Rate 10 L 10 L Blood Pressure 124/65 145/70 H Pulse Oximetry 98 100 100 06/25/18 18:00 06/25/18 19:00 06/25/18 20:00 Temperature 98.9 F Pulse Rate 68 77 69 Respiratory Rate 9 L 11 L 12 Blood Pressure 120/62 121/70 131/74 Pulse Oximetry 98 99 98 06/25/18 20:38 06/25/18 20:41 06/25/18 21:00 Temperature Pulse Rate 69 73 Respiratory Rate 12 19 Blood Pressure 149/77 H Pulse Oximetry 97 96 06/25/18 22:00 06/25/18 23:00 06/25/18 23:01 Temperature Pulse Rate 78 79 80 Respiratory Rate 27 H 36 H 40 H Blood Pressure 163/79 H 172/90 H 172/90 H Pulse Oximetry 92 L 93 L 92 L 06/25/18 23:11 06/26/18 00:00 06/26/18 00:07 Temperature 98.2 F Pulse Rate 76 80 Respiratory Rate 32 H 31 H Blood Pressure 171/82 H Pulse Oximetry 91 L 92 L 06/26/18 01:00 06/26/18 01:01 06/26/18 02:00 Temperature Pulse Rate 82 84 84 Respiratory Rate 33 H 36 H 29 H Blood Pressure 192/89 H 192/89 H 185/87 H Pulse Oximetry 92 L 93 L 91 L 06/26/18 02:18 06/26/18 03:00 06/26/18 03:47 Temperature Pulse Rate 84 84 83 Respiratory Rate 29 H 33 H 32 H Blood Pressure 171/91 H 182/86 H Pulse Oximetry 91 L 92 L 06/26/18 04:00 06/26/18 04:07 06/26/18 05:00 Temperature 97.4 F L Pulse Rate 78 69 Respiratory Rate 12 12 Blood Pressure 123/68 124/71 Pulse Oximetry 92 L 92 L 91 L 06/26/18 06:00 06/26/18 07:00 06/26/18 08:00 Temperature 97.6 F Pulse Rate 66 68 83 Respiratory Rate 12 18 31 H Blood Pressure 138/65 160/73 H 176/87 H Pulse Oximetry 90 L 91 L 89 L 06/26/18 09:00 06/26/18 10:00 06/26/18 11:00 Temperature Pulse Rate 90 92 H 89 Respiratory Rate 39 H 32 H 39 H Blood Pressure 140/73 138/96 H 138/79 Pulse Oximetry 95 95 96 06/26/18 11:44 06/26/18 12:00 06/26/18 13:00 Temperature 99.6 F Pulse Rate 84 88 87 Respiratory Rate 18 28 H 34 H Blood Pressure 150/70 H 135/73 Pulse Oximetry 94 L 93 L 06/26/18 13:59 06/26/18 14:00 Temperature Pulse Rate 86 82 Respiratory Rate 18 34 H Blood Pressure 146/73 H Pulse Oximetry 93 L Intake & Output 06/25/18 06/26/18 06/26/18 18:59 06:59 18:59 Intake Total 150 / 150 Output Total 175 / 175 Balance -25 / -25 Weight 69 kg Intake: Oral 150 / 150 Output: Urine 175 / 175 Other: # Voids 1 # Incontinent Voids 2 # Bowel Movements 0 Result Diagrams: 06/26/18 05:20 06/26/18 05:20 Objective Remarks: GENERAL: Undernourished chronically ill-appearing female now speaking full sentences but still tachypneic and mildly labored. SKIN: Warm and dry. Multiple ecchymoses along her right forearm. HEAD: Atraumatic. Normocephalic. EYES: Pupils equal and round, 2 mm and reactive. No scleral icterus. No injection or drainage. ENT: No nasal bleeding or discharge. Mucous membranes dry NECK: Trachea midline. No JVD. CARDIOVASCULAR: Regular rate and rhythm. No murmurs rubs or gallops. RESPIRATORY: tachypneic, bilat wheeze, diminished . No rales or rhonchi. GASTROINTESTINAL: Abdomen soft, non-tender, nondistended. Bowel sounds present. MUSCULOSKELETAL: Extremities without clubbing, cyanosis. Slight bilat pedal edema, right leg more than left and right calf with mild erythema. NEUROLOGICAL:Alert, follows commands, strength 4+/5 BLE, sensation intact. . No obvious cranial nerve deficits. Normal speech. Assessment and Plan - Assessment and Plan Plan: NEURO: Acute encephalopathy secondary to hypercapnia Generalized weakness and deconditioning Physical therapy consult. Case management consult for eventual rehab placement. RESP: Acute on chronic hypercapnic respiratory failure with chronic hypoxia Acute COPD exacerbation CXR clear HFNC, Bipap prn. DuoNeb every 4 hours. Albuterol every 2 hours as needed. Solu-Medrol 60 mill grams IV every 6 hours. Hold prednisone 40 mg p.o. daily. Continue Symbicort 80/4.52 puffs inhaled twice daily. Diamox 250 mg IV q6 x4. CV: Monitor hemodynamics Echo 10/19/11 ejection fraction 55-60% GI: GERD Heart healthy diet. FEN/RENAL: Creatinine normal. Monitor creatinine and electrolytes. Purewick catheter. ID: Afebrile. No leukocytosis. Monitor for signs and symptoms of infection. HEME: No acute hematologic issues BLE us negative. ENDO: Monitor glucose AC/at bedtime while on steroids and use low-dose insulin sliding scale as indicated. PROPH: Protonix 20 mg p.o. daily for stress ulcer prophylaxis and history of GERD. Lovenox 40 mg subcu daily for DVT prophylaxis. ACCESS: Peripheral IV providing adequate access. FULL CODE I called patient's to update but there was no answer. Level 3 f/u.
--- NOTE | 2018-06-26 17:05 | US ---
EXAM DATE: 06/26/2018 5:01 PM EDT AGE/SEX: 68 years / Female INDICATIONS: Bilateral leg swelling. CLINICAL DATA: This is the patient's initial encounter. Patient reports that signs and symptoms have been present for 1 day and indicates a pain score of 5/10. MEDICAL/SURGICAL HISTORY: Chronic obstructive pulmonary disease. Hypercholesterolemia. Ovarian cancer. Hysterectomy. Lumpectomy. COMPARISON: [facility], US LEG VENOUS INSUFFICIENCY, BILATERAL, 01/18/2018. . TECHNIQUE: Venous ultrasound of both lower extremities was performed from the inguinal ligament to t he proximal calf. Real-time, color Doppler and spectral tracing, compression and augmentation techni ques were used. FINDINGS: Right Leg: Normal compression of the deep venous system from the inguinal region to the proximal dwain f. No echogenic clot is seen. Normal response of the venous system to augmentation and respiration. Left Leg: Normal compression of the deep venous system from the inguinal region to the proximal calf . No echogenic clot is seen. Normal response of the venous system to augmentation and respiration. Other: None. CONCLUSION: 1. The study is negative for bilateral lower extremity deep venous thrombosis. Electronically signed by: Brian Cespedes MD 06/26/2018 5:04 PM EDT
[2018-06-26] MEDS ORDERED: Melatonin 5 MG Tablet PO PRN (23:42)
[2018-06-27] MEDS: MethylPREDNISolone Sod Succinate Inj 125 MG/2 ML Vial IV.PUSH SCH ×3 (04:59→17:22)
[2018-06-27 05:22] LABS: Hematocrit 34.3 % (35.0-46.0); Hemoglobin 11.1 gm/dL (11.6-15.3); Mean Corpuscular HGB Conc 32.5 % (32.0-36.0); Mean Corpuscular Volume 89.2 fL (80.0-100.0); Mean Platelet Volume 8.1 fL (7.0-11.0); Platelet Count 244 th/mm3 (150-450); Red Blood Count 3.84 mil/mm3 (4.00-5.30); Red Cell Distribution Width 14.6 % (11.6-17.2); White Blood Count 10.8 th/mm3 (4.0-11.0)
[2018-06-27 05:34] LABS: Calcium 9.1 mg/dL (8.5-10.1); Carbon Dioxide 33.5 meq/L (21.0-32.0); Potassium 3.1 meq/L (3.5-5.1)
[2018-06-27] MEDS ORDERED: Sodium Phosphate Inj 30 MMOL in Sodium Chlor 0.9% Inj 250 ML IV.SIG PRN (06:19)
[2018-06-27] MEDS ORDERED: Magnesium Sulfate Inj 4 GM in Sodium Chlor 0.9% Inj 92 ML IV.SIG PRN (06:19)
[2018-06-27] MEDS ORDERED: Magnesium Sulfate Inj 2 GM in Sodium Chlor 0.9% Inj 96 ML IV.SIG PRN (06:19)
[2018-06-27] MEDS ORDERED: Potassium Chlor 40 mEq Premix 40 MEQ/100 ML PIGGYBACK IV.SIG PRN ×2 (06:19)
[2018-06-27] MEDS ORDERED: Potassium Phosphate 500 MG Soluble Tablet PO PRN ×2 (06:19)
[2018-06-27] MEDS ORDERED: Potassium Phosphate Inj 30 MMOL in Sodium Chlor 0.9% Inj 250 ML IV.SIG PRN (06:19)
[2018-06-27] MEDS ORDERED: Magnesium Oxide 400 MG Tablet PO PRN (06:19)
[2018-06-27] MEDS ORDERED: Potassium Chloride 25 MEQ Effervescent Tablet PO PRN (06:19)
[2018-06-27] MEDS: Potassium Chlor 20 mEq Premix 20 MEQ/100 ML PIGGYBACK IV.SIG PRN ×5 (08:28→23:46)
[2018-06-27] MEDS: Pantoprazole Sodium 20 MG DR Tablet PO SCH (08:29)
[2018-06-27] MEDS: Senna/Docusate Sodium 8.6/50 MG Tablet PO SCH ×2 (08:29→21:24)
[2018-06-27] MEDS: Insulin NovoLOG Aspart Correctional Sugar Inj SQ SCH ×4 (08:29→21:24)
[2018-06-27] MEDS: Budesonide-Formoterol 80/4.5 MCG 6.9 GM Inhaler INH SCH ×2 (08:30→21:24)
[2018-06-27] MEDS: Enoxaparin Inj 40 MG/0.4 ML Syringe SQ SCH (10:25)
--- NOTE | 2018-06-27 15:27 | P.PNCC ---
Subjective Subjective Remarks/Hospital Course: 68-year-old female with past medical history of COPD on 3 L home O2, prior tobacco abuse, hypertension, hyperlipidemia, ovarian cancer who was recently admitted to [facility] 06/14-05/24 after she presented with syncope and acute COPD exacerbation that ultimately required intubation and mechanical ventilation from 06/16 through 06/19. Rehab placement was recommended, but patient refused rehab and therefore was discharged home with home health on 06/24/18, however once she got home she realized she was too weak for home care to be feasible. She presented again to the emergency department and was admitted to the hospitalist service for physical therapy evaluation. She had progressive shortness of breath and then lethargy. ABG was obtained which demonstrates acute acute and chronic hypercapnic respiratory failure with pH 7.29/PaCO2 of 90/PO2 of 69/bicarb 42 on 3 L nasal cannula. She does not wish to be intubated although it is unclear whether she would be agreeable to intubation if it was life or , limited in conversation due to severe respiratory distress. She states we should speak with her regarding goals of care. Subjective: 06/26 Has been able to come off Bipap. Better air movement, still wheezing, Remains tachypneic. Using HFNC 20 L 30%. She desires full code. PT recommending acute rehab. 06/27: No events over the night. Patient is currently on high flow nasal cannula at 20 L/min at 30% with O2 sat around 94%. T-max of 99, urine output around 1670 mL's over the last 24 hours. Objective Vital Signs / I&O: Vital Signs 06/26/18 15:43 06/26/18 16:00 06/26/18 17:00 Temperature 98.5 F Pulse Rate 79 80 Respiratory Rate 31 H 30 H Blood Pressure 145/67 H 142/68 H Pulse Oximetry 93 L 92 L 94 L 06/26/18 18:00 06/26/18 19:00 06/26/18 20:00 Temperature Pulse Rate 85 92 H 87 Respiratory Rate 38 H 34 H 34 H Blood Pressure 155/76 H 167/75 H 147/71 H Pulse Oximetry 93 L 94 L 91 L 06/26/18 20:42 06/26/18 20:43 06/26/18 21:00 Temperature Pulse Rate 82 84 Respiratory Rate 24 37 H Blood Pressure 147/70 H Pulse Oximetry 94 L 94 L 06/26/18 22:00 06/26/18 23:00 06/27/18 00:00 Temperature Pulse Rate 88 80 78 Respiratory Rate 40 H 31 H 34 H Blood Pressure 139/101 H 138/69 148/70 H Pulse Oximetry 90 L 92 L 93 L 06/27/18 00:13 06/27/18 01:00 06/27/18 02:00 Temperature Pulse Rate 82 79 75 Respiratory Rate 22 32 H 27 H Blood Pressure 148/76 H 149/69 H Pulse Oximetry 92 L 90 L 06/27/18 03:00 06/27/18 04:00 06/27/18 04:03 Temperature Pulse Rate 73 98 H 87 Respiratory Rate 26 H 42 H 39 H Blood Pressure 154/75 H 187/88 H 161/77 H Pulse Oximetry 89 L 90 L 87 L 06/27/18 04:10 06/27/18 04:17 06/27/18 05:00 Temperature 98.7 F Pulse Rate 84 98 H 84 Respiratory Rate 24 27 H 27 H Blood Pressure 161/77 H 174/87 H Pulse Oximetry 91 L 94 L 06/27/18 05:03 06/27/18 06:00 06/27/18 07:00 Temperature Pulse Rate 81 84 81 Respiratory Rate 37 H 32 H 42 H Blood Pressure 174/87 H 172/84 H Pulse Oximetry 93 L 91 L 91 L 06/27/18 07:22 06/27/18 08:00 06/27/18 08:06 Temperature 99.0 F Pulse Rate 80 80 82 Respiratory Rate 31 H 38 H 41 H Blood Pressure 166/79 H 154/85 H 154/85 H Pulse Oximetry 90 L 89 L 92 L 06/27/18 09:00 06/27/18 09:04 06/27/18 09:18 Temperature Pulse Rate 88 87 87 Respiratory Rate 44 H 49 H 39 H Blood Pressure 182/81 H 193/98 H Pulse Oximetry 91 L 87 L 93 L 06/27/18 09:20 06/27/18 09:26 06/27/18 10:00 Temperature Pulse Rate 84 85 90 Respiratory Rate 46 H 45 H 35 H Blood Pressure 202/92 H 153/77 H 147/70 H Pulse Oximetry 95 95 95 06/27/18 10:04 06/27/18 11:00 06/27/18 11:05 Temperature Pulse Rate 83 93 H 93 H Respiratory Rate 25 H 34 H 50 H Blood Pressure 122/58 L Pulse Oximetry 20 L 93 L 06/27/18 12:00 06/27/18 12:02 06/27/18 13:00 Temperature 98.5 F Pulse Rate 99 H 91 H 79 Respiratory Rate 22 46 H 53 H Blood Pressure 143/83 H 143/83 H 138/69 Pulse Oximetry 94 L 92 L 97 06/27/18 13:15 06/27/18 14:00 Temperature Pulse Rate 86 81 Respiratory Rate 24 37 H Blood Pressure 138/65 Pulse Oximetry 94 L Intake & Output 06/26/18 06/27/18 06/27/18 18:59 06:59 18:59 Intake Total 500 / 500 100 / 100 Output Total 400 / 400 1270 / 1270 Balance 100 / 100 -1170 / -1170 Weight 70.5 kg Intake: Oral 500 / 500 100 / 100 Output: Urine 1270 / 1270 Urine Amount (Catheter) 400 / 400 Female External 400 / 400 Other: Date of Last Bowel Movement 06/26/18 06/26/18 # Bowel Movements 0 Result Diagrams: 06/28/18 06:44 06/28/18 06:44 Objective Remarks: GENERAL: Elderly lady, awake, ill-appearing, cachectic. SKIN: Warm and dry. Multiple ecchymoses along her right forearm. HEAD: Atraumatic. Normocephalic. EYES: Pupils are equal and reactive. Sclerae nonicteric. ENT: No nasal bleeding or discharge. Mucous membranes are dry. NECK: Trachea midline. No JVD. CARDIOVASCULAR: Regular heart sounds. No murmurs RESPIRATORY: Clear bilateral. No wheezes. Improved air entry. GASTROINTESTINAL: Abdomen soft, non-tender, nondistended. Bowel sounds are present. MUSCULOSKELETAL: Extremities without clubbing, cyanosis. Slight bilat pedal edema. NEUROLOGICAL: Awake, alert, follows commands, moves all extremities. Assessment and Plan - Assessment and Plan Plan: 1. Acute on chronic hypercapnic respiratory failure with chronic hypoxia - improved 2. Acute COPD exacerbation 3. Acute encephalopathy likely secondary to hypercapnia -resolved 4. Generalized weakness 5. Hypokalemia 1. Continue steroids, decrease dose to 40 IV every 8 hours 2. Continue bronchodilators 3. On Symbicort 4. Received Diamox 5. Supplemental O2 to keep SPO2 between 88 and 92%. Wean off high flow nasal cannula 6. On diet 7. GI and DVT prophylaxis 8. Replete potassium No family present at bedside. We will transition care to hospitalist service once patient comes off HFNC.
[2018-06-27] MEDS: MethylPREDNISolone Sod Succinate Inj 40 MG/ML Vial IV.PUSH SCH (21:24)
--- NOTE | 2018-06-27 21:34 | MB ---
cc: Edvin Jimenez MD, Camille MD DATE: 06/27/2018 REQUESTING PHYSICIAN: Sue Manrique MD REASON FOR CONSULTATION: COPD exacerbation. HISTORY OF PRESENT ILLNESS: Ms. Lara is a 68-year-old female with a history of COPD. The patient was recently admitted in this hospital. She had respiratory failure. She was on a ventilator. She was advised to go to rehab, which she declined and went to home. The next day, she started feeling very weak and her legs gave way. She did not have loss of consciousness. She did not have fever or chills. No night sweats. The patient came back to the hospital. She had a workup done. Her blood gas showed pH 7.29, pCO2 of 90, pO2 of 69, bicarbonate 42. The patient declined for intubation. She was put on BiPAP. Repeat blood gas pH 7.39, pCO2 of 64, pO2 of 73, bicarbonate 38. Her CBC shows WBC count 10.8, hemoglobin 11.1, hematocrit 34.3, MCV 89, platelet count 244. Sodium 142, potassium 3.1, chloride 103, CO2 of 33, BUN 21, creatinine 0.78. Her recent PFT showed very severe COPD. Her FEV1 is 0.27 only. Currently, she is weaned down to nasal cannula. Her breathing is much better. She is anxious to be moved out of this floor. PAST MEDICAL HISTORY: Significant for a history of COPD, hypertension, syncopal episode, history of surgery on the left lung. MEDICATIONS: She is currently taking DuoNeb nebulizer treatments, Symbicort 80/4.5 two puffs twice a day, clonidine 0.1 mg q.6 hours p.r.n., Lovenox 40 mg a day, Lasix 20 mg a day. She is on insulin sliding scale, Mag-Ox 800 mg, Solu-Medrol 60 mg q.6 hours, Protonix 40 mg a day, potassium supplement. ALLERGIES: SHE IS ALLERGIC TO LATEX AND STRAWBERRIES. 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 She has a history of smoking 2 to 2-1/2 packs a day all her life, which she quit in 2010. She has no significant history of alcohol use. FAMILY HISTORY: She is for the second time and lives with her . REVIEW OF SYSTEMS: Feels weak. No seizure, stroke or epilepsy. No DVT or pulmonary embolism. PHYSICAL EXAMINATION: GENERAL: She is an elderly female, mildly short of breath. VITAL SIGNS: Her blood pressure is 139/81, heart rate 88, respirations 16, temperature 98. HEENT: Pupils are equal and reactive to light. Oral mucosa and nasal mucosa are normal. NECK: No JVD. CHEST: She has expiratory rhonchi. CARDIOVASCULAR: S1, S2 normal. ABDOMEN: Soft, nondistended. Bowel sounds are present. EXTREMITIES: No edema. IMPRESSION: 1. Hypercapnic respiratory failure. 2. Chronic obstructive pulmonary disease exacerbation. 3. Hypertension. 4. Anxiety. PLAN: I discussed with the patient. We will continue IV Solu-Medrol. She is on nasal cannula and doing well with it. Use CPAP only as needed. She is on subcutaneous Lovenox. Continue Protonix. She will need retirement placement and rehab. Further treatment pending the course in the hospital. Thank you, Dr. Sue Manrique, for this consult. MD CARLOS MANUEL Cassidy/sonal , 07:18 PM , 07:28 PM
[2018-06-28] MEDS: MethylPREDNISolone Sod Succinate Inj 125 MG/2 ML Vial IV.PUSH SCH ×3 (05:15→10:26)
[2018-06-28] MEDS: MethylPREDNISolone Sod Succinate Inj 40 MG/ML Vial IV.PUSH SCH ×3 (05:59→20:52)
[2018-06-28 07:21] LABS: Baso % (Auto) 0.1 % (0.0-2.0); Hematocrit 31.5 % (35.0-46.0); Lymph # (Auto) 0.2 th/mm3 (1.0-4.8); Lymph % (Auto) 1.6 % (9.0-44.0); Mean Corpuscular HGB Conc 31.6 % (32.0-36.0); Mean Corpuscular Hemoglobin 28.7 pg (27.0-34.0); Mean Corpuscular Volume 90.6 fL (80.0-100.0); Mean Platelet Volume 8.2 fL (7.0-11.0); Mono # (Auto) 0.4 th/mm3 (0.0-0.9); Mono % (Auto) 3.3 % (0.0-8.0); Neut # (Auto) 12.8 th/mm3 (1.8-7.7); Platelet Count 209 th/mm3 (150-450); Red Blood Count 3.48 mil/mm3 (4.00-5.30); Red Cell Distribution Width 15.2 % (11.6-17.2); White Blood Count 13.5 th/mm3 (4.0-11.0)
[2018-06-28 07:45] LABS: Alanine Aminotransferase 28 U/L (10-53); Albumin 2.7 g/dL (3.4-5.0); Alkaline Phosphatase 48 U/L (45-117); Anion Gap 9 meq/L (5-15); Aspartate Aminotransferase 10 U/L (15-37); Blood Urea Nitrogen 17 mg/dL (7-18); Calcium 9.3 mg/dL (8.5-10.1); Carbon Dioxide 26.1 meq/L (21.0-32.0); Chloride 111 meq/L (98-107); Glomerular Filtration Rate Greater Than 89 mL/min (>89); Glucose,Random 161 mg/dL (74-106); Magnesium 2.1 mg/dL (1.5-2.5); Potassium 4.1 meq/L (3.5-5.1); Sodium 146 meq/L (136-145); Total Protein 5.3 g/dL (6.4-8.2)
[2018-06-28] MEDS: Insulin NovoLOG Aspart Correctional Sugar Inj SQ SCH ×4 (08:03→20:47)
[2018-06-28] MEDS: Budesonide-Formoterol 80/4.5 MCG 6.9 GM Inhaler INH SCH ×2 (08:03→20:52)
[2018-06-28] MEDS: Pantoprazole Sodium 20 MG DR Tablet PO SCH (08:03)
[2018-06-28] MEDS: Senna/Docusate Sodium 8.6/50 MG Tablet PO SCH ×2 (08:03→20:51)
[2018-06-28] MEDS: Enoxaparin Inj 40 MG/0.4 ML Syringe SQ SCH (10:46)
--- NOTE | 2018-06-28 11:00 | P.PNIM ---
Subjective Interval history: f/u; respiratory failure in no acute distress. currently on two liters of oxygen via N/C. denies pain. no fever. d/w the RN. Physical Exam Vital signs: Vital Signs 06/27/18 11:00 06/27/18 11:05 06/27/18 12:00 Temperature 98.5 F Pulse Rate 93 H 93 H 99 H Respiratory Rate 34 H 50 H 22 Blood Pressure 122/58 L 143/83 H Pulse Oximetry 93 L 94 L 06/27/18 12:02 06/27/18 13:00 06/27/18 13:15 Temperature Pulse Rate 91 H 79 86 Respiratory Rate 46 H 53 H 24 Blood Pressure 143/83 H 138/69 Pulse Oximetry 92 L 97 06/27/18 14:00 06/27/18 15:00 06/27/18 16:00 Temperature 98.5 F Pulse Rate 81 76 75 Respiratory Rate 37 H 29 H 35 H Blood Pressure 138/65 127/69 142/71 H Pulse Oximetry 94 L 92 L 96 06/27/18 16:42 06/27/18 17:00 06/27/18 18:00 Temperature Pulse Rate 81 84 85 Respiratory Rate 26 H 34 H 40 H Blood Pressure 137/77 Pulse Oximetry 99 06/27/18 18:01 06/27/18 19:00 06/27/18 19:01 Temperature Pulse Rate 87 86 88 Respiratory Rate 50 H 58 H 69 H Blood Pressure 110/84 139/81 Pulse Oximetry 100 100 06/27/18 20:00 06/27/18 20:14 06/27/18 20:17 Temperature 98.6 F Pulse Rate 81 85 Respiratory Rate 38 H 20 Blood Pressure 141/73 H Pulse Oximetry 99 97 06/27/18 21:00 06/27/18 22:00 06/27/18 23:00 Temperature Pulse Rate 91 H 88 89 Respiratory Rate 63 H 49 H 41 H Blood Pressure 130/73 115/65 121/70 Pulse Oximetry 95 96 96 06/27/18 23:26 06/28/18 00:00 06/28/18 00:48 Temperature 98.4 F Pulse Rate 89 84 88 Respiratory Rate 20 24 47 H Blood Pressure 137/78 137/77 Pulse Oximetry 97 97 06/28/18 01:00 06/28/18 02:00 06/28/18 02:20 Temperature Pulse Rate 84 74 72 Respiratory Rate 49 H 26 H 28 H Blood Pressure 125/77 122/66 Pulse Oximetry 100 100 99 06/28/18 03:00 06/28/18 04:00 06/28/18 04:12 Temperature 98.2 F Pulse Rate 74 67 70 Respiratory Rate 23 28 H 20 Blood Pressure Pulse Oximetry 99 99 06/28/18 05:00 06/28/18 06:00 06/28/18 07:00 Temperature Pulse Rate 74 69 80 Respiratory Rate 21 37 H 44 H Blood Pressure Pulse Oximetry 99 100 100 06/28/18 07:18 06/28/18 07:32 06/28/18 08:00 Temperature 98.4 F Pulse Rate 82 86 87 Respiratory Rate 41 H 43 H 44 H Blood Pressure 183/92 H 170/98 H 167/74 H Pulse Oximetry 99 97 95 06/28/18 08:01 06/28/18 08:57 Temperature Pulse Rate 80 85 Respiratory Rate 38 H 25 H Blood Pressure 167/74 H Pulse Oximetry 95 99 Intake & Output 06/27/18 06/28/18 06/28/18 18:59 06:59 18:59 Intake Total 500 / 500 Balance 500 / 500 Weight 69 kg Intake: IV 300 / 300 KCl 20 mEq Premix Inj 20 meq In 300 / 300 100 ml @ 50 mls/hr IV.SIG Q2H PRN Rx#:[id number] Oral 200 / 200 Other: # Voids 1 2 Date of Last Bowel Movement 06/27/18 06/28/18 06/28/18 # Bowel Movements 1 1 - Constitutional no acute distress - Routine Respiratory Exam Present: diminished air movement (bilaterally.) - Routine Cardiovascular Exam Present: RRR - Routine Abdominal Exam Present: soft - Routine Extremities Exam Comments: no pedal edema. - Routine Neurological Exam Present: alert, oriented X3 - Urinary Catheter Management Female External Cath placed during this visit: no Results - Labs CBC & Chem 7: 06/28/18 06:44 06/28/18 06:44 Laboratory Results - last 24 hr 06/27/18 06/27/18 06/27/18 11:55 15:38 16:36 WBC RBC Hgb Hct MCV MCH MCHC RDW Plt Count MPV Neut % (Auto) Lymph % (Auto) [place] % (Auto) Eos % (Auto) Baso % (Auto) Neut # (Auto) Lymph # (Auto) [place] # (Auto) Eos # (Auto) Baso # (Auto) WBC Differential Differential Comment Sodium Potassium 2.9 L* Chloride Carbon Dioxide Anion Gap BUN Creatinine Estimated GFR POC Glucose 230 H 207 H Random Glucose Calcium Magnesium Total Bilirubin AST ALT Alkaline Phosphatase Total Protein Albumin 06/27/18 06/28/18 06/28/18 20:12 06:44 06:44 WBC 13.5 H RBC 3.48 L Hgb 10.0 L Hct 31.5 L MCV 90.6 MCH 28.7 MCHC 31.6 L RDW 15.2 Plt Count 209 MPV 8.2 Neut % (Auto) 95.0 H Lymph % (Auto) 1.6 L [place] % (Auto) 3.3 Eos % (Auto) 0.0 Baso % (Auto) 0.1 Neut # (Auto) 12.8 H Lymph # (Auto) 0.2 L [place] # (Auto) 0.4 Eos # (Auto) 0.0 Baso # (Auto) 0.0 WBC Differential . Differential Comment Auto diff final Sodium 146 H Potassium 4.1 D Chloride 111 H D Carbon Dioxide 26.1 Anion Gap 9 BUN 17 Creatinine 0.56 Estimated GFR Greater than 89 POC Glucose 179 H Random Glucose 161 H Calcium 9.3 Magnesium 2.1 Total Bilirubin 0.3 AST 10 L ALT 28 Alkaline Phosphatase 48 Total Protein 5.3 L Albumin 2.7 L 06/28/18 07:35 WBC RBC Hgb Hct MCV MCH MCHC RDW Plt Count MPV Neut % (Auto) Lymph % (Auto) [place] % (Auto) Eos % (Auto) Baso % (Auto) Neut # (Auto) Lymph # (Auto) [place] # (Auto) Eos # (Auto) Baso # (Auto) WBC Differential Differential Comment Sodium Potassium Chloride Carbon Dioxide Anion Gap BUN Creatinine Estimated GFR POC Glucose 168 H Random Glucose Calcium Magnesium Total Bilirubin AST ALT Alkaline Phosphatase Total Protein Albumin Assessment and Plan - Assessment (1) Weakness Code(s): R53.1 - Weakness Status: Acute (2) Gait instability Code(s): R26.81 - Unsteadiness on feet Status: Acute (3) COPD (chronic obstructive pulmonary disease) Code(s): J44.9 - Chronic obstructive pulmonary disease, unspecified Status: Acute - Plan 1. Acute on chronic hypercapnic respiratory failure with chronic hypoxia/ COPD exacerbation -improved continue to taper down the IV steroids- continue Symbicort and neb treatment. patient is on home oxygen. 3. Acute encephalopathy likely secondary to hypercapnia -resolved 4. Generalized weakness- continue PT. 5. Hypokalemia-replaced. DVT prophylaxis with subq Lovenox. transfer to floor. Discussed Condition With: the patient, RN and . Discharge Planning: dc to rehab tomorrow if stable. (3) COPD (chronic obstructive pulmonary disease) Qualifiers: COPD type: unspecified COPD Qualified Code(s): J44.9 - Chronic obstructive pulmonary disease, unspecified
--- NOTE | 2018-06-28 19:07 | P.PNPL ---
Subjective Interval history: 68 YOWF with COPD , Hypercapnoic RF Weaned to NC Breathing better Anxious Wants to go to rehab Physical Exam Vital signs: Vital Signs 06/27/18 20:00 06/27/18 20:14 06/27/18 20:17 Temperature 98.6 F Pulse Rate 81 85 Respiratory Rate 38 H 20 Blood Pressure 141/73 H Pulse Oximetry 99 97 06/27/18 21:00 06/27/18 22:00 06/27/18 23:00 Temperature Pulse Rate 91 H 88 89 Respiratory Rate 63 H 49 H 41 H Blood Pressure 130/73 115/65 121/70 Pulse Oximetry 95 96 96 06/27/18 23:26 06/28/18 00:00 06/28/18 00:48 Temperature 98.4 F Pulse Rate 89 84 88 Respiratory Rate 20 24 47 H Blood Pressure 137/78 137/77 Pulse Oximetry 97 97 06/28/18 01:00 06/28/18 02:00 06/28/18 02:20 Temperature Pulse Rate 84 74 72 Respiratory Rate 49 H 26 H 28 H Blood Pressure 125/77 122/66 Pulse Oximetry 100 100 99 06/28/18 03:00 06/28/18 04:00 06/28/18 04:12 Temperature 98.2 F Pulse Rate 74 67 70 Respiratory Rate 23 28 H 20 Blood Pressure Pulse Oximetry 99 99 06/28/18 05:00 06/28/18 06:00 06/28/18 07:00 Temperature Pulse Rate 74 69 80 Respiratory Rate 21 37 H 44 H Blood Pressure Pulse Oximetry 99 100 100 06/28/18 07:18 06/28/18 07:32 06/28/18 08:00 Temperature 98.4 F Pulse Rate 82 86 87 Respiratory Rate 41 H 43 H 44 H Blood Pressure 183/92 H 170/98 H 167/74 H Pulse Oximetry 99 97 95 06/28/18 08:01 06/28/18 08:57 06/28/18 09:00 Temperature Pulse Rate 80 85 83 Respiratory Rate 38 H 25 H 40 H Blood Pressure 167/74 H Pulse Oximetry 95 99 100 06/28/18 09:18 06/28/18 10:00 06/28/18 11:00 Temperature Pulse Rate 76 76 82 Respiratory Rate 50 H 29 H 43 H Blood Pressure 130/67 133/63 134/78 Pulse Oximetry 100 97 97 06/28/18 12:00 06/28/18 12:02 06/28/18 16:00 Temperature 98.4 F 97.8 F Pulse Rate 90 85 84 Respiratory Rate 22 24 18 Blood Pressure 142/69 H 151/71 H Pulse Oximetry 93 L 98 06/28/18 16:25 Temperature Pulse Rate 88 Respiratory Rate 20 Blood Pressure Pulse Oximetry Intake & Output 06/28/18 06/28/18 06/29/18 06:59 18:59 06:59 Intake Total 500 / 500 480 / 480 Output Total 250 / 250 Balance 500 / 500 230 / 230 Weight 69 kg Intake: IV 300 / 300 KCl 20 mEq Premix Inj 20 meq In 300 / 300 100 ml @ 50 mls/hr IV.SIG Q2H PRN Rx#:[id number] Oral 200 / 200 480 / 480 Output: Urine Amount (Catheter) 250 / 250 Female External 250 / 250 Other: # Voids 2 2 Date of Last Bowel Movement 06/28/18 06/28/18 # Bowel Movements 1 1 GENERAL: Elderly WF, mild sob SKIN: Warm and dry. HEAD: Normocephalic. EYES: No scleral icterus. No injection or drainage. NECK: Supple, trachea midline. No JVD or lymphadenopathy. CARDIOVASCULAR: Regular rate and rhythm without murmurs, gallops, or rubs. RESPIRATORY: Breath sounds equal bilaterally. No accessory muscle use. GASTROINTESTINAL: Abdomen soft, non-tender, nondistended. MUSCULOSKELETAL: No cyanosis, or edema. BACK: Nontender without obvious deformity. No CVA tenderness. - Urinary Catheter Management Female External Cath placed during this visit: no Assessment and Plan - Plan IMPRESSION: 1. Hypercapnic respiratory failure. 2. Chronic obstructive pulmonary disease exacerbation. 3. Hypertension. 4. Anxiety. PLABN: IV Solumedrol Aerosol nebs Supplement 02 to keep sat 88-92% DW pt and her family.
[2018-06-29] MEDS: Senna/Docusate Sodium 8.6/50 MG Tablet PO SCH ×2 (08:42→20:00)
[2018-06-29] MEDS: Insulin NovoLOG Aspart Correctional Sugar Inj SQ SCH ×4 (08:42→20:01)
[2018-06-29] MEDS: Pantoprazole Sodium 20 MG DR Tablet PO SCH (08:42)
[2018-06-29] MEDS: MethylPREDNISolone Sod Succinate Inj 40 MG/ML Vial IV.PUSH SCH (08:42)
[2018-06-29 09:07] LABS: Baso % (Auto) 0.3 % (0.0-2.0); Eos % (Auto) 0.1 % (0.0-4.0); Hematocrit 34.9 % (35.0-46.0); Hemoglobin 11.1 gm/dL (11.6-15.3); Lymph # (Auto) 0.7 th/mm3 (1.0-4.8); Lymph % (Auto) 4.8 % (9.0-44.0); Mean Corpuscular HGB Conc 31.9 % (32.0-36.0); Mean Corpuscular Volume 91.1 fL (80.0-100.0); Mean Platelet Volume 8.2 fL (7.0-11.0); Mono # (Auto) 0.7 th/mm3 (0.0-0.9); Mono % (Auto) 4.6 % (0.0-8.0); Neut # (Auto) 12.9 th/mm3 (1.8-7.7); Neut % (Auto) 90.2 % (16.0-70.0); Platelet Count 249 th/mm3 (150-450); Red Blood Count 3.84 mil/mm3 (4.00-5.30); Red Cell Distribution Width 15.2 % (11.6-17.2); White Blood Count 14.3 th/mm3 (4.0-11.0)
[2018-06-29 09:50] LABS: Alanine Aminotransferase 31 U/L (10-53); Albumin 3.1 g/dL (3.4-5.0); Alkaline Phosphatase 56 U/L (45-117); Anion Gap 8 meq/L (5-15); Aspartate Aminotransferase 20 U/L (15-37); Blood Urea Nitrogen 13 mg/dL (7-18); Calcium 9.7 mg/dL (8.5-10.1); Carbon Dioxide 27.3 meq/L (21.0-32.0); Chloride 106 meq/L (98-107); Glomerular Filtration Rate 83 mL/min (>89); Glucose,Random 85 mg/dL (74-106); Magnesium 2.1 mg/dL (1.5-2.5); Potassium 3.8 meq/L (3.5-5.1); Sodium 141 meq/L (136-145); Total Protein 6.1 g/dL (6.4-8.2)
[2018-06-29] MEDS: Enoxaparin Inj 40 MG/0.4 ML Syringe SQ SCH (12:52)
--- NOTE | 2018-06-29 16:19 | P.PN ---
Subjective Interval history: national coverage specialist following with diagnosis of Hypercapnic respiratory failure /COPD recommended to continue Solu-Medrol, Bronchodilator, supplemental oxygen continue Nasal Cannula she is at 3 L/min. continue present care. No nausea vomit or diarrhea. Physical Exam Vital signs: Vital Signs 06/28/18 16:25 06/28/18 19:56 06/28/18 20:00 Temperature 98.3 F Pulse Rate 88 85 82 Respiratory Rate 20 17 18 Blood Pressure 156/74 H Pulse Oximetry 97 94 L 06/29/18 00:11 06/29/18 03:53 06/29/18 04:00 Temperature 97.7 F Pulse Rate 83 85 94 H Respiratory Rate 19 18 18 Blood Pressure 148/68 H Pulse Oximetry 97 99 93 L 06/29/18 08:00 06/29/18 08:30 06/29/18 11:54 Temperature 97.9 F 97.9 F Pulse Rate 84 88 88 Respiratory Rate 19 24 18 Blood Pressure 137/63 128/60 Pulse Oximetry 95 97 Intake & Output 06/28/18 06/29/18 06/29/18 18:59 06:59 18:59 Intake Total 480 / 480 900 / 900 Output Total 250 / 250 Balance 230 / 230 900 / 900 Weight 69 kg Intake: Oral 480 / 480 900 / 900 Output: Urine Amount (Catheter) 250 / 250 Female External 250 / 250 Other: # Voids 2 6 Date of Last Bowel Movement 06/28/18 06/28/18 # Bowel Movements 1 Narrative: GENERAL: no acute Distress. SKIN: Warm and dry. Multiple ecchymoses along her right forearm. HEAD: Atraumatic. Normocephalic. NECK: Trachea midline. No JVD. CARDIOVASCULAR: Regular rate and rhythm. No murmurs rubs or gallops. RESPIRATORY: Severe decreased breath sounds bilateral, No wheezing or crackles. GASTROINTESTINAL: Abdomen soft, non-tender, nondistended. MUSCULOSKELETAL: Extremities without clubbing, cyanosis. Pedal edema positive. NEUROLOGICAL: No focal deficits. - Urinary Catheter Management Female External Cath placed during this visit: no Results - Labs CBC & Chem 7: 06/29/18 08:10 06/29/18 08:10 Laboratory Results - last 24 hr 06/28/18 06/29/18 06/29/18 20:45 08:10 08:10 WBC 14.3 H RBC 3.84 L Hgb 11.1 L Hct 34.9 L MCV 91.1 MCH 29.0 MCHC 31.9 L RDW 15.2 Plt Count 249 MPV 8.2 Prelim Diff (Auto) Slide review pending Neut % (Auto) 90.2 H Lymph % (Auto) 4.8 L [place] % (Auto) 4.6 Eos % (Auto) 0.1 Baso % (Auto) 0.3 Neut # (Auto) 12.9 H Lymph # (Auto) 0.7 L [place] # (Auto) 0.7 Eos # (Auto) 0.0 Baso # (Auto) 0.0 WBC Differential . Diff Scan Auto diff confirmed Differential Comment . Sodium 141 Potassium 3.8 Chloride 106 Carbon Dioxide 27.3 Anion Gap 8 BUN 13 Creatinine 0.70 Estimated GFR 83 L POC Glucose 135 H Random Glucose 85 Calcium 9.7 Magnesium 2.1 Total Bilirubin 0.4 AST 20 ALT 31 Alkaline Phosphatase 56 Total Protein 6.1 L D Albumin 3.1 L 06/29/18 06/29/18 08:32 11:48 WBC RBC Hgb Hct MCV MCH MCHC RDW Plt Count MPV Prelim Diff (Auto) Neut % (Auto) Lymph % (Auto) [place] % (Auto) Eos % (Auto) Baso % (Auto) Neut # (Auto) Lymph # (Auto) [place] # (Auto) Eos # (Auto) Baso # (Auto) WBC Differential Diff Scan Differential Comment Sodium Potassium Chloride Carbon Dioxide Anion Gap BUN Creatinine Estimated GFR POC Glucose 98 106 Random Glucose Calcium Magnesium Total Bilirubin AST ALT Alkaline Phosphatase Total Protein Albumin Assessment and Plan - Assessment (1) Weakness Code(s): R53.1 - Weakness Status: Acute (2) Gait instability Code(s): R26.81 - Unsteadiness on feet Status: Acute (3) COPD (chronic obstructive pulmonary disease) Code(s): J44.9 - Chronic obstructive pulmonary disease, unspecified Status: Acute - Plan 1. Acute on chronic hypercapnic respiratory failure with chronic hypoxia/ COPD exacerbation -improved continue to taper down the IV steroids- continue Symbicort and neb treatment. patient is on home oxygen. at three L/min at home, credit risk specialist following. 3. Acute encephalopathy likely secondary to hypercapnia -resolved 4. Generalized weakness- continue PT. 5. Hypokalemia-replaced. DVT prophylaxis with subq Lovenox. Code Status: Full Code. Discussed Condition With: patient and nurse Miss Kerry Discharge Planning: Expected by Tomorrow to [facility]. (3) COPD (chronic obstructive pulmonary disease) Qualifiers: COPD type: unspecified COPD Qualified Code(s): J44.9 - Chronic obstructive pulmonary disease, unspecified
[2018-06-29] MEDS: Budesonide-Formoterol 80/4.5 MCG 6.9 GM Inhaler INH SCH ×2 (17:40→20:00)
--- NOTE | 2018-06-29 18:29 | P.PNPL ---
Subjective Interval history: 68 YOWF with COPD , Hypercapnoic RF Weaned to NC Breathing better Anxious Wants to go to rehab Up in the chair Physical Exam Vital signs: Vital Signs 06/28/18 19:56 06/28/18 20:00 06/29/18 00:11 Temperature 98.3 F Pulse Rate 85 82 83 Respiratory Rate Blood Pressure 156/74 H Pulse Oximetry 97 94 L 97 06/29/18 03:53 06/29/18 04:00 06/29/18 08:00 Temperature 97.7 F 97.9 F Pulse Rate 85 94 H 84 Respiratory Rate Blood Pressure 148/68 H 137/63 Pulse Oximetry 99 93 L 95 06/29/18 08:30 06/29/18 11:54 06/29/18 16:00 Temperature 97.9 F 98.0 F Pulse Rate 88 88 84 Respiratory Rate Blood Pressure 128/60 123/56 L Pulse Oximetry 97 100 Intake & Output 06/28/18 06/29/18 06/29/18 18:59 06:59 18:59 Intake Total 480 / 480 900 / 900 960 / 960 Output Total 250 / 250 Balance 230 / 230 900 / 900 960 / 960 Weight 69 kg Intake: Oral 480 / 480 900 / 900 960 / 960 Output: Urine Amount (Catheter) 250 / 250 Female External 250 / 250 Other: # Voids 2 6 2 Date of Last Bowel Movement 06/28/18 06/28/18 # Bowel Movements 1 GENERAL: MBMN Wf NAD SKIN: Warm and dry. HEAD: Normocephalic. EYES: No scleral icterus. No injection or drainage. NECK: Supple, trachea midline. No JVD or lymphadenopathy. CARDIOVASCULAR: Regular rate and rhythm without murmurs, gallops, or rubs. RESPIRATORY: Breath sounds equal bilaterally. No accessory muscle use. GASTROINTESTINAL: Abdomen soft, non-tender, nondistended. MUSCULOSKELETAL: No cyanosis, or edema. BACK: Nontender without obvious deformity. No CVA tenderness. - Urinary Catheter Management Female External Cath placed during this visit: no Assessment and Plan - Plan IMPRESSION: 1. Hypercapnic respiratory failure. 2. Chronic obstructive pulmonary disease exacerbation. 3. Hypertension. 4. Anxiety. PLABN: DC Solumedrol PO Steroids Aerosol nebs Supplement 02 to keep sat 88-92% DC Plans underway
[2018-06-30] MEDS: Budesonide-Formoterol 80/4.5 MCG 6.9 GM Inhaler INH SCH (08:42)
[2018-06-30] MEDS: Insulin NovoLOG Aspart Correctional Sugar Inj SQ SCH (08:43)
[2018-06-30] MEDS: predniSONE 10 MG Tablet PO SCH ×3 (08:43→17:56)
[2018-06-30] MEDS: Senna/Docusate Sodium 8.6/50 MG Tablet PO SCH (08:43)
[2018-06-30] MEDS: Pantoprazole Sodium 20 MG DR Tablet PO SCH (08:43)
--- NOTE | 2018-06-30 10:18 | P.PN ---
Subjective Interval history: credit card specialist following with diagnosis of Hypercapnic respiratory failure /COPD recommended to continue Solu-Medrol, Bronchodilator, supplemental oxygen continue Nasal Cannula she is at 3 L/min. continue present care. 06/30: Stable in her bedroom improving condition, no nausea, vomit or diarrhea already recommended for discharge by credit card specialist. will go to [facility]. Physical Exam Vital signs: Vital Signs 06/29/18 11:54 06/29/18 16:00 06/29/18 20:00 Temperature 97.9 F 98.0 F 97.7 F Pulse Rate 88 84 83 Respiratory Rate 18 18 18 Blood Pressure 128/60 123/56 L 150/71 H Pulse Oximetry 97 100 96 06/29/18 20:38 06/30/18 00:00 06/30/18 00:16 Temperature 98.2 F Pulse Rate 77 78 Respiratory Rate 18 20 Blood Pressure 149/67 H Pulse Oximetry 94 L 93 L 06/30/18 04:00 06/30/18 04:28 Temperature Pulse Rate 90 79 Respiratory Rate 20 Blood Pressure Pulse Oximetry Intake & Output 06/29/18 06/30/18 06/30/18 18:59 06:59 18:59 Intake Total 960 / 960 120 / 120 Balance 960 / 960 120 / 120 Weight 69.9 kg Intake: Oral 960 / 960 120 / 120 Other: # Voids 2 2 1 Date of Last Bowel Movement 06/28/18 Narrative: GENERAL: no acute Distress. SKIN: Warm and dry. Multiple ecchymoses along her right forearm. HEAD: Atraumatic. Normocephalic. NECK: Trachea midline. No JVD. CARDIOVASCULAR: Regular rate and rhythm. No murmurs rubs or gallops. RESPIRATORY: Severe decreased breath sounds bilateral, No wheezing or crackles. GASTROINTESTINAL: Abdomen soft, non-tender, nondistended. MUSCULOSKELETAL: Extremities without clubbing, cyanosis. Pedal edema positive. NEUROLOGICAL: No focal deficits. - Urinary Catheter Management Female External Cath placed during this visit: no Results - Labs CBC & Chem 7: 06/30/18 09:52 06/29/18 08:10 Laboratory Results - last 24 hr 06/29/18 06/29/18 06/29/18 11:48 17:58 19:56 POC Glucose 106 115 H 94 06/30/18 08:36 POC Glucose 81 Assessment and Plan - Assessment (1) Weakness Code(s): R53.1 - Weakness Status: Acute (2) Gait instability Code(s): R26.81 - Unsteadiness on feet Status: Acute (3) COPD (chronic obstructive pulmonary disease) Code(s): J44.9 - Chronic obstructive pulmonary disease, unspecified Status: Acute - Plan 1. Acute on chronic hypercapnic respiratory failure with chronic hypoxia/ COPD exacerbation -improved continue to taper down the IV steroids- continue Symbicort and neb treatment. patient is on home oxygen. at three L/min at home, event specialist food demonstrator already started Steroids by mouth recommended for discharge. 3. Acute encephalopathy likely secondary to hypercapnia -resolved 4. Generalized weakness- continue PT. 5. Hypokalemia-replaced. DVT prophylaxis with subq Lovenox. Code Status: Full Code. Discussed Condition With: Patient and nurse Miss Padilla. Discharge Planning: Discharge to SNF today. (3) COPD (chronic obstructive pulmonary disease) Qualifiers: COPD type: unspecified COPD Qualified Code(s): J44.9 - Chronic obstructive pulmonary disease, unspecified
[2018-06-30 10:31] LABS: Eos % (Auto) 0.3 % (0.0-4.0); Hemoglobin 10.5 gm/dL (11.6-15.3); Lymph % (Auto) 11.3 % (9.0-44.0); Mean Corpuscular HGB Conc 32.7 % (32.0-36.0); Mean Corpuscular Hemoglobin 29.2 pg (27.0-34.0); Mean Corpuscular Volume 89.3 fL (80.0-100.0); Mean Platelet Volume 8.1 fL (7.0-11.0); Mono # (Auto) 0.7 th/mm3 (0.0-0.9); Mono % (Auto) 7.8 % (0.0-8.0); Neut # (Auto) 6.9 th/mm3 (1.8-7.7); Neut % (Auto) 80.6 % (16.0-70.0); Platelet Count 167 th/mm3 (150-450); Red Blood Count 3.59 mil/mm3 (4.00-5.30); Red Cell Distribution Width 14.7 % (11.6-17.2); White Blood Count 8.5 th/mm3 (4.0-11.0)
--- NOTE | 2018-06-30 10:59 | P.DS ---
Date of admission: 06/25/18 09:32 Primary care physician: UNKNOWN Attending physician on discharge: Ilir Joshua Anticipated date of discharge: 06/30/18 Brief History from admission: This is a 68-year-old female with a PMH of HTN, Hyperlipidemia, h/o Ovarian CA and COPD who presented to the ER with complaints of bilateral lower extremity weakness. Pt was discharged earlier today after being admitted from 06/15- for Syncope, COPD and Generalized Weakness w/ subsequent respiratory failure requiring intubation/extubation, pt was offered Rehab at the time of discharge, however she declined and was sent home w/ [facility]. States she has had persistent weakness since being discharged earlier today, "legs gave out". Denies syncope or chest pain. Requesting Rehab at this time. Also w/ c/o SOB and wheezing. On arrival, BP 122/68, HR 89, O2 sat 91% on 3L NC, Afebrile. DS: Diagnosis - Discharge Diagnosis (1) Weakness Status: Acute (2) Gait instability Status: Acute (3) COPD (chronic obstructive pulmonary disease) Status: Acute DS: Summary Hospital Course: geophysical support specialist following with diagnosis of Hypercapnic respiratory failure /COPD recommended to continue Solu-Medrol, Bronchodilator, supplemental oxygen continue Nasal Cannula she is at 3 L/min. continue present care. 06/30: Stable in her bedroom improving condition, no nausea, vomit or diarrhea already recommended for discharge by geophysical support specialist. will go to [facility]. Assessment and Plan - Assessment (1) Weakness Code(s): R53.1 - Weakness Status: Acute (2) Gait instability Code(s): R26.81 - Unsteadiness on feet Status: Acute (3) COPD (chronic obstructive pulmonary disease) Code(s): J44.9 - Chronic obstructive pulmonary disease, unspecified Status: Acute - Plan 1. Acute on chronic hypercapnic respiratory failure with chronic hypoxia/ COPD exacerbation -improved continue to taper down the IV steroids- continue Symbicort and neb treatment. patient is on home oxygen. at three L/min at home, computer help desk specialist already started Steroids by mouth recommended for discharge. 3. Acute encephalopathy likely secondary to hypercapnia -resolved 4. Generalized weakness- continue PT. 5. Hypokalemia-replaced. DVT prophylaxis with subq Lovenox. Code Status: Full Code. Discussed Condition With: Patient and nurse Miss Padilla. Discharge Planning: Discharge to SNF today. - Time Spent with Patient Total time spent providing and/or coordinating discharge services: Greater than 30 minutes - Quality: VTE Deep Vein Thrombosis/Pulmonary Embolism Present on Admission: Yes Exam Vital signs: Vital Signs 06/29/18 11:54 06/29/18 16:00 06/29/18 20:00 Temperature 97.9 F 98.0 F 97.7 F Pulse Rate 88 84 83 Respiratory Rate 18 18 18 Blood Pressure 128/60 123/56 L 150/71 H Pulse Oximetry 97 100 96 06/29/18 20:38 06/30/18 00:00 06/30/18 00:16 Temperature 98.2 F Pulse Rate 77 78 Respiratory Rate 18 20 Blood Pressure 149/67 H Pulse Oximetry 94 L 93 L 06/30/18 04:00 06/30/18 04:28 Temperature Pulse Rate 90 79 Respiratory Rate 20 Blood Pressure Pulse Oximetry Intake & Output 06/29/18 06/30/18 06/30/18 18:59 06:59 18:59 Intake Total 960 / 960 120 / 120 Balance 960 / 960 120 / 120 Weight 69.9 kg Intake: Oral 960 / 960 120 / 120 Other: # Voids 2 2 1 Date of Last Bowel Movement 06/28/18 Narrative: GENERAL: no acute Distress. SKIN: Warm and dry. Multiple ecchymoses along her right forearm. HEAD: Atraumatic. Normocephalic. NECK: Trachea midline. No JVD. CARDIOVASCULAR: Regular rate and rhythm. No murmurs rubs or gallops. RESPIRATORY: Severe decreased breath sounds bilateral, No wheezing or crackles. GASTROINTESTINAL: Abdomen soft, non-tender, nondistended. MUSCULOSKELETAL: Extremities without clubbing, cyanosis. Pedal edema positive. NEUROLOGICAL: No focal deficits. Results Procedures completed during hospitalization: None Labs on day of discharge: Labs from last 24 hours 06/30/18 06/30/18 06/30/18 09:52 09:52 08:36 WBC 8.5 RBC 3.59 L Hgb 10.5 L Hct 32.0 L MCV 89.3 MCH 29.2 MCHC 32.7 RDW 14.7 Plt Count 167 D MPV 8.1 Neut % (Auto) 80.6 H Lymph % (Auto) 11.3 [place] % (Auto) 7.8 Eos % (Auto) 0.3 Baso % (Auto) 0.0 Neut # (Auto) 6.9 Lymph # (Auto) 1.0 [place] # (Auto) 0.7 Eos # (Auto) 0.0 Baso # (Auto) 0.0 WBC Differential . Differential Comment Auto diff final Sodium Pending Potassium Pending Chloride Pending Carbon Dioxide Pending Anion Gap Pending BUN Pending Creatinine Pending POC Glucose 81 Random Glucose Pending Calcium Pending Magnesium Pending Total Bilirubin Pending AST Pending ALT Pending Alkaline Phosphatase Pending Total Protein Pending Albumin Pending 06/29/18 06/29/18 06/29/18 19:56 17:58 11:48 WBC RBC Hgb Hct MCV MCH MCHC RDW Plt Count MPV Neut % (Auto) Lymph % (Auto) [place] % (Auto) Eos % (Auto) Baso % (Auto) Neut # (Auto) Lymph # (Auto) [place] # (Auto) Eos # (Auto) Baso # (Auto) WBC Differential Differential Comment Sodium Potassium Chloride Carbon Dioxide Anion Gap BUN Creatinine POC Glucose 94 115 H 106 Random Glucose Calcium Magnesium Total Bilirubin AST ALT Alkaline Phosphatase Total Protein Albumin - Impressions ITS Impressions Chest X-Ray 06/25/18 09:59 CONCLUSION: No acute cardiopulmonary disease identified. Venous Doppler Study 06/26/18 15:40 CONCLUSION: 1. The study is negative for bilateral lower extremity deep venous thrombosis. Discharge Plan - Discharge Disposition Patient Disposition: 03 Discharge to SNF - Discharge Condition Condition: Good - Discharge Order Discharge Orders: Discharge Order (Routine); Ordered 06/30/18 Ordered By: Ilir Joshua - Discharge Details Anticipated Discharge Date: 06/30/18 Discharge Comment: Follow with PCP in three days. - Physicians Team Primary Care Provider: UNKNOWN, Attending Provider: Ilir Joshua Other Providers: Mattie Melton MD ; [employer] ; Edvin Jimenez MD ; [facility]
[2018-06-30 11:05] LABS: Alanine Aminotransferase 26 U/L (10-53); Albumin 2.7 g/dL (3.4-5.0); Alkaline Phosphatase 48 U/L (45-117); Anion Gap 8 meq/L (5-15); Aspartate Aminotransferase 15 U/L (15-37); Blood Urea Nitrogen 10 mg/dL (7-18); Calcium 8.6 mg/dL (8.5-10.1); Carbon Dioxide 32.4 meq/L (21.0-32.0); Chloride 106 meq/L (98-107); Glomerular Filtration Rate Greater Than 89 mL/min (>89); Glucose,Random 81 mg/dL (74-106); Potassium 3.2 meq/L (3.5-5.1); Sodium 146 meq/L (136-145); Total Protein 5.2 g/dL (6.4-8.2)
[2018-06-30] MEDS: Enoxaparin Inj 40 MG/0.4 ML Syringe SQ SCH (11:27)
--- NOTE | 2018-06-30 17:03 | P.PNPL ---
Subjective Interval history: 68 YOWF with COPD , Hypercapnoic RF Weaned to NC Breathing better Anxious Wants to go to rehab Physical Exam Vital signs: Vital Signs 06/29/18 20:00 06/29/18 20:38 06/30/18 00:00 Temperature 97.7 F 98.2 F Pulse Rate 83 77 Respiratory Rate 18 18 Blood Pressure 150/71 H 149/67 H Pulse Oximetry 96 94 L 93 L 06/30/18 00:16 06/30/18 04:00 06/30/18 04:28 Temperature Pulse Rate 78 90 79 Respiratory Rate 20 20 Blood Pressure Pulse Oximetry 06/30/18 12:00 06/30/18 12:33 06/30/18 15:57 Temperature 97.2 F L Pulse Rate 85 80 85 Respiratory Rate 17 16 16 Blood Pressure 161/74 H Pulse Oximetry 92 L 96 Intake & Output 06/29/18 06/30/18 06/30/18 18:59 06:59 18:59 Intake Total 960 / 960 120 / 120 Balance 960 / 960 120 / 120 Weight 69.9 kg Intake: Oral 960 / 960 120 / 120 Other: # Voids 2 2 1 Date of Last Bowel Movement 06/28/18 GENERAL: Elderly WF, NAD SKIN: Warm and dry. HEAD: Normocephalic. EYES: No scleral icterus. No injection or drainage. NECK: Supple, trachea midline. No JVD or lymphadenopathy. CARDIOVASCULAR: Regular rate and rhythm without murmurs, gallops, or rubs. RESPIRATORY: Breath sounds equal bilaterally. No accessory muscle use. GASTROINTESTINAL: Abdomen soft, non-tender, nondistended. MUSCULOSKELETAL: No cyanosis, or edema. BACK: Nontender without obvious deformity. No CVA tenderness. - Urinary Catheter Management Female External Cath placed during this visit: no Assessment and Plan - Plan IMPRESSION: 1. Hypercapnic respiratory failure. 2. Chronic obstructive pulmonary disease exacerbation. 3. Hypertension. 4. Anxiety. PLABN: PO Steroids Aerosol nebs Supplement 02 to keep sat 88-92% DC Plans underway for [facility] [place] Will FU in office
== END 2018-06-30 18:13 ==
LOC: NEPE 14:01 → NEDA 14:01 → NEPHCDU 21:10 → HIMC 06-25 09:45 → N07 06-28 14:16
PROVIDERS: ADMIT Internal Medicine; ATTEND Internal Medicine